=== PATIENT | female | born 1985 | race Caucasian/White ===

== ENCOUNTER 2016-08-06 18:48 | Emergency (ER) | payer OTHER ==
[~2016-08-06] VITALS: Ht 180.3 cm; Wt 144.0 kg
[~2016-08-06 18:48] MED LIST: MISC1TAB74 PO; ONDA4TAB46 PO
[2016-08-06 18:53] VITALS: TEMP 36.9; Ht 180.3 cm; Wt 144.0 kg
[2016-08-06] MEDS ORDERED: MoRPHine SULFATE 4 MG/ML 1 ML CARP\\VIAL IM STA ×2 (19:00→19:45)
[2016-08-06] MEDS ORDERED: PROCHLORPERAZINE 5 MG/ML 2 ML VIAL IM STA (19:00)
[2016-08-06] MEDS ORDERED: DiphenhydrAMINE HCL 50 MG/ML VIAL IM STA (19:00)
[2016-08-06 19:50] VITALS: BP 149/92; PULSE 80; O2SAT 98
--- NOTE | 2016-08-06 20:19 | EMERGENCY ROOM VISIT NOTE ---
History First contact with patient: 18:55 Chief Complaint: HEADACHE Stated Complaint: MIGRAINE,NAUSEA,UNABLE TO HAVE BOWEL MOVEMENT History of Present Illness The patient is a 31 year old female who presents to the Emergency Room with complaints of a migraine headache for the past 2 days. The patient reports a history of chronic migraines. She is currently under the management of "Dr. Durant". The patient reports that her last 3 appointments since last summer has been canceled on her. She is taking about trying to find another neurologist. The patient reports symptoms consistent with all prior migraines. It is not the worse headache of her life. She describes it as a bilateral retro-orbital and temporal throbbing sensation. She reports photophobia as well. She has had nausea without vomiting. The patient denies any other recent illness except for a mild case of gastroenteritis just prior to . The patient denies any risk of carbon monoxide exposure. He denies any recent fall or head injury. She rates her headache a 10 out of 10. Review of Systems 10 system review was performed and was negative except for pertinent positives and negatives as indicated in history of present illness Past Medical/Surgical History Medical Problems: (1) Abdominal pain (2) Abnormal uterine bleeding (3) Abnormal uterine bleeding (4) Abnormal uterine bleeding (5) Abnormal vaginal bleeding (6) Attention deficit hyperactivity disorder (7) Back pain (8) Back pain (9) Back pain (10) Benign hypertension (11) Bipolar disorder (12) Body mass index 30+ - obesity (13) Cannabis abuse (14) Depression (15) Diabetes mellitus type 2 (16) Dysmenorrhea (17) Dysmenorrhea (18) dyspnea metabolic syndrome X (19) Gastroesophageal reflux disease (20) Headache (21) Hyperglycemia (22) Lower abdominal pain (23) Lower abdominal pain (24) Migraine (25) Migraine (26) Migraine (27) Pain, dental (28) PCOS (polycystic ovarian syndrome) (29) Polycystic ovaries (30) Posttraumatic stress disorder (31) Suicide by self-administered drug (32) Upper respiratory infection (33) Urinary tract infection (34) UTI (lower urinary tract infection) (35) UTI (lower urinary tract infection) Family History Diabetes mellitus FH: cancer FH: heart disease FH: lung disease FHx: gallbladder disease Hypertension Kidney disease Kidney stones Social History Smoking Status: Current Every Day Smoker Alcohol Use: none Drug Use: none Marital Status: single Housing Status: lives with family Occupation Status: employed Current/Historical Medications Scheduled Bupropion Hcl (Bupropion Hcl Er), 150 MG PO DAILY Metformin Hcl (Glucophage), 500 MG PO BIDM Methylphenidate (Ritalin), 10 MG PO BID Misc Natural Products (Green Tea), 2 TABS PO BID Multiple Vitamins W/ Minerals (Biotin Plus/Calcium/Vit D), 1 TAB PO TID Topiramate (Topamax), 100 MG PO HS Topiramate (Topamax ), 25 MG PO QAM Scheduled PRN Lorazepam (Ativan), 1 MG PO DAILY PRN for Anxiety/Agitation Omeprazole (Prilosec), 20 MG PO TID PRN for Acid Reflux Ondansetron Hcl (Zofran), 4 MG PO TID PRN for Nausea Ondasetron Odt (Zofran Odt), 4 MG SL Q6H PRN for Nausea Allergies Coded Allergies: Kiwi (Verified Allergy, Intermediate, TONGUE SWELLS, 07/24/16) Adhesives (Verified Allergy, Unknown, BLISTERS, 07/24/16) Macias Pepper (Verified Allergy, Unknown, IRRITATES THROAT, 07/24/16) GREEN PEPPERS Sumatriptan (Verified Allergy, Unknown, neck pain, 07/24/16) Ibuprofen (Verified Adverse Reaction, Severe, GI BLEED, 07/24/16) Physical Exam Vital Signs Date Time Temp Pulse Resp B/P Pulse Ox O2 Delivery O2 Flow Rate FiO2 08/06/16 19:50 80 16 149/92 98 Room Air 08/06/16 18:53 36.9 118 18 147/85 92 Room Air Physical Exam CONSTITUTIONAL: Morbidly obese, alert and oriented X 3 with positive affect. HEENT: Normocephalic, atraumatic. Pupils equal, round and reactive. Patient is photophobic, precluding funduscopic exam. NECK: Full active range of motion without discomfort. No nuchal rigidity. RESPIRATORY: Clear to auscultation bilaterally with no wheezing, crackles, rhonchi or stridor. CARDIOVASCULAR: Regular rate and rhythm with no murmurs, rubs or gallops. GASTROINTESTINAL: Bowel sounds present in all quadrants. MUSCULOSKELETAL: Full range of motion of all joints without discomfort. INTEGUMENTARY: No rash or other significant dermatologic conditions noted. NEUROLOGIC: No focal neurologic deficits noted. Normal finger to nose test. Negative pronator drift. No ataxia with ambulation to her exam room. Medical Decision & Procedures Medications Administered Medications (Trade) Dose Ordered Sig/Angela Route Start Time Stop Time Status Last Admin Dose Admin Morphine Sulfate (MoRPHine SULFATE INJ) 4 mg ONE STAT IM 08/06/16 19:00 08/06/16 19:02 DC 08/06/16 19:14 4 MG Prochlorperazine Edisylate (Compazine Inj) 10 mg ONE STAT IM 08/06/16 19:00 08/06/16 19:02 DC 08/06/16 19:14 10 MG Diphenhydramine HCl (Benadryl Inj) 50 mg ONE STAT IM 08/06/16 19:00 08/06/16 19:02 DC 08/06/16 19:14 50 MG Morphine Sulfate (MoRPHine SULFATE INJ) 4 mg NOW STAT IM 08/06/16 19:45 08/06/16 19:46 DC 08/06/16 19:48 4 MG ED Course Patient history and physical exam were performed. Nurse's notes were reviewed. Vital signs were reviewed. Prior medical records were also reviewed, showing a history of frequent visits to the emergency department for migraines and other pain related issues. She is currently on a 2 shot per month narcotic prescription, with history concerning for drug-seeking behavior. According to her previous treatment, the patient received morphine 4 mg, Compazine 10 mg and Benadryl 50 mg IM. The patient reported that this did not provide any relief. She was administered an additional morphine 4 mg IM, reducing her pain to a 5 out of 10 at the time of discharge. The patient was encouraged to rest and remain well-hydrated. Follow-up with her PCP or neurologist as needed for further management. She may certainly return to the [facility] department for any significantly worsening headache, developing fever or other concerning symptoms. The patient was happy with plan of care, and voiced understanding of all discharge instructions. Medical Decision Patient presents to the emergency department with complaint of a migraine headache. She does have a history of chronic migraines, and reports that this headache is similar to all prior. It is not the worse headache of her life. At this point, I do not feel that further laboratory or imaging studies are warranted. I do not suspect meningitis, intracranial bleed, abscess, TIA/CVA, thromboembolic event or carbon monoxide poisoning. Impression Primary Impression: Migraine Departure Information Referrals Leon Ross D.O. (PCP) Patient Instructions A Signature Page, [facility]
[2016-09-17] MEDS ORDERED: TOPI100T20 PO (07:55)
[2016-09-17] MEDS ORDERED: ATV/1 PO (12:23)
[2016-09-17] MEDS ORDERED: PRLSR20 PO (16:09)
[2016-09-17] MEDS ORDERED: METH10TA4 PO (17:03)
== END 2016-08-06 19:52 | disposition home or self-care (01) ==
LOC: C.EDB 18:50 → C.EDD 19:52
DX: G43.909 Migraine, unspecified, not intractable, without status migrainosus (principal); I10 Essential (primary) hypertension; E11.9 Type 2 diabetes mellitus without complications; E28.2 Polycystic ovarian syndrome; F32.9 Major depressive disorder, single episode, unspecified; F90.9 Attention-deficit hyperactivity disorder, unspecified type; Z91.5 Personal history of self-harm; Z79.84 Long term (current) use of oral hypoglycemic drugs; Z79.899 Other long term (current) drug therapy

== ENCOUNTER 2016-08-22 22:44 | Emergency (ER) | payer OTHER ==
[~2016-08-22] VITALS: Ht 180.3 cm; Wt 144.7 kg
[2016-08-22 22:49] VITALS: TEMP 36.8; Ht 180.3 cm; Wt 144.7 kg
[2016-08-22] MEDS ORDERED: PROMETHAZINE HCL INJ 25 MG in SODIUM CHLORIDE 0.9% 50ML 50 ML IV STA (23:09)
[2016-08-22] MEDS ORDERED: SODIUM CHLORIDE 0.9% 1000ML 1,000 ML IV STA (23:09)
[2016-08-22] MEDS ORDERED: MoRPHine SULFATE 4 MG/ML 1 ML CARP\\VIAL IV STA (23:09)
[2016-08-22 23:34] LABS: BASO % 0.2 %; BASO ABS # 0.02 K/uL (0-0.2); COMPLETE YES; EOS % 1.5 %; HEMATOCRIT 40.7 % (37-47); IG% 0.2 %; LYMPH % 38.1 %; LYMPH ABS # 3.26 K/uL (1.2-3.4); MEAN CELL VOLUME 89.1 fL (80-100); MEAN CORPUSCULAR HEMOGLOBIN 31.5 pg (25-34); MEAN CORPUSCULAR HGB CONC 35.4 g/dl (32-36); MEAN PLATELET VOLUME 9.7 fL (7.4-10.4); MONO % 6.3 %; NEUT % 53.7 %; PLATELET COUNT 284 K/uL (130-400); RED BLOOD COUNT 4.57 M/uL (4.2-5.4); WHITE BLOOD COUNT 8.55 K/uL (4.8-10.8)
[2016-08-22 23:54] LABS: URINE APPEARANCE CLEAR (CLEAR); URINE BILIRUBIN NEG (NEG); URINE COLOR YELLOW; URINE NITRITE NEG (NEG); URINE PH 6.5 (4.5-7.5); URINE SPECIFIC GRAVITY 1.021 (1.000-1.030); UROBILINOGEN NEG (NEG); ZZUR CULT IF INDIC CLEAN CATCH NO
[2016-08-22 23:56] LABS: MANUAL MICROSCOPIC REQUIRED? NO; REVIEW REQ? NO
[2016-08-22 23:58] LABS: BUN/CREATININE RATIO 9.7 (10-20); CALCIUM 8.8 mg/dl (8.5-10.1); POTASSIUM 3.9 mmol/L (3.5-5.1)
[2016-08-22 23:59] LABS: PREG INTERNAL NEGATIVE QC NEG CLEAR BACKGROUND; PREG INTERNAL POSITIVE QC POS CONTROL LINE
[2016-08-23 01:25] VITALS: BP 108/44; PULSE 71; O2SAT 97
--- NOTE | 2016-08-23 03:18 | EMERGENCY ROOM VISIT NOTE ---
History First contact with patient: 23:01 Chief Complaint: PELVIC PAIN Stated Complaint: SEVERE ABDOMINAL PAIN, NAUSEA History of Present Illness The patient is a 31 year old female who presents to the Emergency Room with complaints of suprapubic pain with nausea for the past 2 days. Patient has PCOS and thinks symptoms are from this. Patient denies chest pain, dyspnea, fever, chills, vomiting, diarrhea, urinary symptoms, vaginal itching or malodor. She is not currently sexually active. Patient denies risk for STIs She is declining pelvic exam and STI testing. She describes pain as cramping, ranging in severity 7 out of 10 to the right lower suprapubic area. Nothing makes it better or worse. Review of Systems See HPI for pertinent positives & negatives. A total of 10 systems reviewed and were otherwise negative. Past Medical/Surgical History Medical Problems: (1) Abdominal pain (2) Abnormal uterine bleeding (3) Abnormal uterine bleeding (4) Abnormal uterine bleeding (5) Abnormal vaginal bleeding (6) Attention deficit hyperactivity disorder (7) Back pain (8) Back pain (9) Back pain (10) Benign hypertension (11) Bipolar disorder (12) Body mass index 30+ - obesity (13) Cannabis abuse (14) Depression (15) Diabetes mellitus type 2 (16) Dysmenorrhea (17) Dysmenorrhea (18) dyspnea metabolic syndrome X (19) Gastroesophageal reflux disease (20) Headache (21) Hyperglycemia (22) Lower abdominal pain (23) Lower abdominal pain (24) Migraine (25) Migraine (26) Migraine (27) Pain, dental (28) PCOS (polycystic ovarian syndrome) (29) Polycystic ovaries (30) Posttraumatic stress disorder (31) Suicide by self-administered drug (32) Upper respiratory infection (33) Urinary tract infection (34) UTI (lower urinary tract infection) (35) UTI (lower urinary tract infection) Family History Diabetes mellitus FH: cancer FH: heart disease FH: lung disease FHx: gallbladder disease Hypertension Kidney disease Kidney stones Social History Smoking Status: Current Every Day Smoker Alcohol Use: none Drug Use: none Marital Status: single Housing Status: lives with family Occupation Status: employed Current/Historical Medications Scheduled Bupropion Hcl (Bupropion Hcl Er), 150 MG PO DAILY Metformin Hcl (Glucophage), 500 MG PO BIDM Methylphenidate (Ritalin), 10 MG PO BID Misc Natural Products (Green Tea), 2 TABS PO BID Multiple Vitamins W/ Minerals (Biotin Plus/Calcium/Vit D), 1 TAB PO TID Topiramate (Topamax), 100 MG PO HS Topiramate (Topamax ), 25 MG PO QAM Scheduled PRN Lorazepam (Ativan), 1 MG PO DAILY PRN for Anxiety/Agitation Omeprazole (Prilosec), 20 MG PO TID PRN for Acid Reflux Ondasetron Odt (Zofran Odt), 4 MG SL Q6H PRN for Nausea Allergies Coded Allergies: Kiwi (Verified Allergy, Intermediate, TONGUE SWELLS, 08/22/16) Adhesives (Verified Allergy, Unknown, BLISTERS, 08/22/16) Macias Pepper (Verified Allergy, Unknown, IRRITATES THROAT, 08/22/16) GREEN PEPPERS Sumatriptan (Verified Allergy, Unknown, neck pain, 08/22/16) Ibuprofen (Verified Adverse Reaction, Severe, GI BLEED, 08/22/16) Physical Exam Vital Signs Date Time Temp Pulse Resp B/P Pulse Ox O2 Delivery O2 Flow Rate FiO2 08/23/16 01:25 71 16 108/44 97 Room Air 08/23/16 00:29 70 16 124/66 98 Room Air 08/22/16 22:49 36.8 99 18 151/91 97 Room Air Physical Exam VITALS: Vitals are noted on the nurse's note and reviewed by myself. Vital signs stable. GENERAL: Pleasant female, in no acute distress, nondiaphoretic, well-developed well-nourished. SKIN: The skin was without rashes, erythema, edema, or bruising. There is no tenting of the skin. Capillary reflex less than 2 seconds. HEAD: Normocephalic atraumatic. EARS: External auditory canals clear, tympanic membranes pearly bashir without erythema or effusion bilaterally. EYES: Pupils equal round and reactive to light and accommodation. Conjunctivae without injection, sclerae without icterus. Extraocular movements intact. NOSE: Patent, turbinates without inflammation or discharge. MOUTH: Mucous membranes moist. Pharynx without erythema or exudate. Uvula midline. Airway patent. Tongue does not deviate. NECK: Supple without nuchal rigidity. No lymphadenopathy. No thyromegaly. Cervical spine is nontender. No JVD. HEART: Regular rate and rhythm without murmurs gallops or rubs. LUNGS: Clear to auscultation bilaterally without wheezes, rales or rhonchi. No dullness to percussion. No retractions or accessory muscle use. ABDOMEN: Positive bowel sounds x 4. Normal tympanic percussion. Soft, protuberant, obese, tender to palpation right lower suprapubic area, no CVA tenderness, without masses or organomegaly. Posey sign negative. No guarding or rebound tenderness. MUSCULOSKELETAL: No muscle atrophy, erythema, noted. NEURO: Patient was alert and oriented to person place and time. Normal sensation to light and sharp touch. No focal neurological deficits. Medical Decision & Procedures Laboratory Results 08/22/16 23:20 Red Blood Count 4.57, Mean Corpuscular Volume 89.1, Mean Corpuscular Hemoglobin 31.5, Mean Corpuscular Hemoglobin Concent 35.4, Mean Platelet Volume 9.7, Neutrophils (%) (Auto) 53.7, Lymphocytes (%) (Auto) 38.1, Monocytes (%) (Auto) 6.3, Eosinophils (%) (Auto) 1.5, Basophils (%) (Auto) 0.2, Neutrophils # (Auto) 4.58, Lymphocytes # (Auto) 3.26, Monocytes # (Auto) 0.54, Eosinophils # (Auto) 0.13, Basophils # (Auto) 0.02 08/22/16 23:20 Test 08/22/16 23:20 08/22/16 23:27 White Blood Count 8.55 K/uL (4.8-10.8) Red Blood Count 4.57 M/uL (4.2-5.4) Hemoglobin 14.4 g/dL (12.0-16.0) Hematocrit 40.7 % (37-47) Mean Corpuscular Volume 89.1 fL (80-100) Mean Corpuscular Hemoglobin 31.5 pg (25-34) Mean Corpuscular Hemoglobin Concent 35.4 g/dl (32-36) Platelet Count 284 K/uL (130-400) Mean Platelet Volume 9.7 fL (7.4-10.4) Neutrophils (%) (Auto) 53.7 % Lymphocytes (%) (Auto) 38.1 % Monocytes (%) (Auto) 6.3 % Eosinophils (%) (Auto) 1.5 % Basophils (%) (Auto) 0.2 % Neutrophils # (Auto) 4.58 K/uL (1.4-6.5) Lymphocytes # (Auto) 3.26 K/uL (1.2-3.4) Monocytes # (Auto) 0.54 K/uL (0.11-0.59) Eosinophils # (Auto) 0.13 K/uL (0-0.5) Basophils # (Auto) 0.02 K/uL (0-0.2) RDW Standard Deviation 41.1 fL (36.4-46.3) RDW Coefficient of Variation 12.7 % (11.5-14.5) Immature Granulocyte % (Auto) 0.2 % Immature Granulocyte # (Auto) 0.02 K/uL (0.00-0.02) Anion Gap 7.0 mmol/L (3-11) Est Creatinine Clear Calc Drug Dose 131.5 ml/min Estimated GFR () 88.2 Estimated GFR (Non- 76.1 BUN/Creatinine Ratio 9.7 (10-20) Calcium Level 8.8 mg/dl (8.5-10.1) Human Chorionic Gonadotropin, Qual NEG (NEG) Urine Color YELLOW Urine Appearance CLEAR (CLEAR) Urine pH 6.5 (4.5-7.5) Urine Specific Lytle 1.021 (1.000-1.030) Urine Protein NEG (NEG) Urine Glucose (UA) NEG (NEG) Urine Ketones NEG (NEG) Urine Occult Blood NEG (NEG) Urine Nitrite NEG (NEG) Urine Bilirubin NEG (NEG) Urine Urobilinogen NEG (NEG) Urine Leukocyte Esterase NEG (NEG) Medications Administered Medications (Trade) Dose Ordered Sig/Angela Route Start Time Stop Time Status Last Admin Dose Admin Morphine Sulfate 4 mg 4 mg NOW STAT IV 08/22/16 23:09 08/22/16 23:11 DC 08/22/16 23:27 4 MG Promethazine HCl 25 mg/Sodium Chloride 51 ml @ 204 mls/hr NOW STAT IV 08/22/16 23:09 08/22/16 23:23 DC 08/22/16 23:26 204 MLS/HR Sodium Chloride (Nss 1000ml) 1,000 ml @ 999 mls/hr Q1H1M STAT IV 08/22/16 23:09 08/23/16 00:09 DC 08/22/16 23:27 999 MLS/HR ED Course Prior records/ancillary studies reviewed. Triage Nursing notes reviewed. Additional history obtained from sister. The patient's history was concerning for abdominal pain. Differential diagnosis: Etiologies such as appendicitis, PID, ovarian cyst, torsion, , diverticulitis, PUD, biliary pathology, UTI, pancreatitis, obstruction, mesenteric ischemia, aortic pathology, infections, inflammatory bowel disease, renal colic, as well as others were entertained. Physical examination findings: As above. ER treatment provided: Morphine, Phenergan, IV fluids On reassessment the patient felt better. Diagnostics interpreted by me: The labs revealed no worrisome leukocytosis or electrolyte abnormality. Negative urine and hCG Imaging studies: US PELVIC/ENDOVAG: Bilateral ovarian flow is present. No adnexal mass or cyst. Intrauterine device is in place. Uterus and endometrium are normal for age. No free fluid identified. Radiologist: David Campbell MD Exam and history seem consistent with pelvic pain. Patient felt much better and requested to leave. Patient does not have acute abdomen on exam. She is well-appearing. She refused pelvic exam and testing. She understands risks involved that we could be missing an infectious process. She was advised to follow-up with her QUOTATION CHECKER in a few days or here in the ER sooner for pain, fevers, vomiting, worsening signs or symptoms or as needed. By the evaluation outlined above emergent etiologies such as appendicitis, diverticulitis, PUD, biliary pathology, UTI, pancreatitis, obstruction, mesenteric ischemia, aortic pathology, infections, inflammatory bowel disease, renal colic, as well as others were deemed relatively unlikely. The pt informed about the findings as listed above. All questions were answered and pleased with the treatment. Return instructions were outlined and the patient was discharged in stable condition. Referral: The patient was referred back to their primary care physician/bowling ball patcher for follow- up in 2 to 3 days for a recheck of the current condition. Case reviewed with my attending Medical Decision As above Impression Primary Impression: Pelvic pain in female Departure Information Referrals Leon Ross D.O. (PCP) Patient Instructions My [facility]
--- NOTE | 2016-08-23 06:44 | DIAGNOSTIC IMAGING REPORT ---
EXAMINATION: PELVIC ULTRASOUND (transabdominal and endovaginal scanning) CLINICAL HISTORY: RLQ pain COMPARISON STUDY: 06/15/2016 FINDINGS: The uterus measured 7.1 x 3.8 x 5 cm. The endometrial stripe measured 7 mm. An IUD was visualized.. The right ovary measured 49 x 38 x 27 mm. The left ovary measured 47 x 30 x 35 mm. There is no ultrasonographic evidence of ovarian torsion. It should be noted that ovarian torsion can be present with normal Doppler ultrasonographic findings. There was no evidence of pathologic free pelvic fluid. IMPRESSION: Normal pelvic ultrasound Electronically signed by: Krishna Hayden M.D. 08/23/2016 6:42 AM Dictated Date/Time: 08/23/2016 6:41 AM
[2016-09-17] MEDS ORDERED: TOPI100T20 PO (07:55)
[2016-09-17] MEDS ORDERED: ATV/1 PO (12:23)
[2016-09-17] MEDS ORDERED: PRLSR20 PO (16:09)
[2016-09-17] MEDS ORDERED: METH10TA4 PO (17:03)
== END 2016-08-23 01:25 | disposition home or self-care (01) ==
LOC: C.EDB 22:45
DX: R10.2 Pelvic and perineal pain (principal); F90.9 Attention-deficit hyperactivity disorder, unspecified type; I10 Essential (primary) hypertension; F31.9 Bipolar disorder, unspecified; F32.9 Major depressive disorder, single episode, unspecified; E11.9 Type 2 diabetes mellitus without complications; K21.9 Gastro-esophageal reflux disease without esophagitis; E28.2 Polycystic ovarian syndrome; G43.909 Migraine, unspecified, not intractable, without status migrainosus; Z83.3 Family history of diabetes mellitus; F17.210 Nicotine dependence, cigarettes, uncomplicated; Z79.899 Other long term (current) drug therapy

== ENCOUNTER 2016-09-06 18:48 | Emergency (ER) | payer OTHER ==
[~2016-09-06] VITALS: Ht 180.3 cm; Wt 146.1 kg
[~2016-09-06 18:48] MED LIST changes: -ONDA4TAB46 PO
[2016-09-06 18:51] VITALS: TEMP 36.9; Ht 180.3 cm; Wt 146.1 kg
--- NOTE | 2016-09-06 20:01 | DIAGNOSTIC IMAGING REPORT ---
LEFT FOOT 3 VIEWS HISTORY: Left foot pain COMPARISON: None. FINDINGS: There is no fracture or dislocation. Soft tissues are unremarkable. No radiopaque foreign bodies. Small posterior calcaneal spur. IMPRESSION: No fractures. Electronically signed by: Taurus Mckeon M.D. 09/06/2016 7:59 PM Dictated Date/Time: 09/06/2016 7:57 PM
--- NOTE | 2016-09-06 20:24 | EMERGENCY ROOM VISIT NOTE ---
History First contact with patient: 19:06 Chief Complaint: FOOT PAIN Stated Complaint: SEVERE PAIN, LEFT FOOT History of Present Illness The patient is a 31 year old female who presents to the Emergency Room via private vehicle with complaints of "severe pain, left foot". The patient states that she developed left foot pain a few days ago that is progressively worsening and points to the region just below the left lateral malleolus extending into the midfoot as a location of the pain that she rates an 8/10. She states that she is unable to bear weight on this region without pain. She denies any fevers, chills, chest pain, shortness of breath, history of blood clots. Review of Systems A complete 6-point Review of Systems was discussed with the patient, with pertinent positives and negatives listed in the History of Present Illness. All remaining Review of Systems questions can be considered negative unless otherwise specified. Past Medical/Surgical History Medical Problems: (1) Abdominal pain (2) Abnormal uterine bleeding (3) Abnormal uterine bleeding (4) Abnormal uterine bleeding (5) Abnormal vaginal bleeding (6) Attention deficit hyperactivity disorder (7) Back pain (8) Back pain (9) Back pain (10) Benign hypertension (11) Bipolar disorder (12) Body mass index 30+ - obesity (13) Cannabis abuse (14) Depression (15) Diabetes mellitus type 2 (16) Dysmenorrhea (17) Dysmenorrhea (18) dyspnea metabolic syndrome X (19) Gastroesophageal reflux disease (20) Headache (21) Hyperglycemia (22) Lower abdominal pain (23) Lower abdominal pain (24) Migraine (25) Migraine (26) Migraine (27) Pain, dental (28) PCOS (polycystic ovarian syndrome) (29) Polycystic ovaries (30) Posttraumatic stress disorder (31) Suicide by self-administered drug (32) Upper respiratory infection (33) Urinary tract infection (34) UTI (lower urinary tract infection) (35) UTI (lower urinary tract infection) Family History Diabetes mellitus FH: cancer FH: heart disease FH: lung disease FHx: gallbladder disease Hypertension Kidney disease Kidney stones Social History Smoking Status: Current Every Day Smoker Alcohol Use: none Drug Use: none Marital Status: single Housing Status: lives with family Occupation Status: employed Current/Historical Medications Scheduled Bupropion Hcl (Bupropion Hcl Er), 150 MG PO DAILY Metformin Hcl (Glucophage), 500 MG PO BIDM Methylphenidate (Ritalin), 10 MG PO BID Multiple Vitamins W/ Minerals (Biotin Plus/Calcium/Vit D), 1 TAB PO TID Topiramate (Topamax), 100 MG PO HS Topiramate (Topamax ), 25 MG PO QAM Scheduled PRN Lorazepam (Ativan), 1 MG PO DAILY PRN for Anxiety/Agitation Omeprazole (Prilosec), 20 MG PO TID PRN for Acid Reflux Ondasetron Odt (Zofran Odt), 4 MG SL Q6H PRN for Nausea Allergies Coded Allergies: Kiwi (Verified Allergy, Intermediate, TONGUE SWELLS, 09/06/16) Adhesives (Verified Allergy, Unknown, BLISTERS, 09/06/16) Macias Pepper (Verified Allergy, Unknown, IRRITATES THROAT, 09/06/16) GREEN PEPPERS Sumatriptan (Verified Allergy, Unknown, neck pain, 09/06/16) Ibuprofen (Verified Adverse Reaction, Severe, GI BLEED, 09/06/16) Physical Exam Vital Signs Date Time Temp Pulse Resp B/P Pulse Ox O2 Delivery O2 Flow Rate FiO2 09/06/16 20:28 83 18 140/84 95 09/06/16 19:38 88 16 150/91 96 09/06/16 18:51 36.9 106 17 192/135 93 Room Air Physical Exam VITAL SIGNS - Vital signs and nursing notes were reviewed. Patient is afebrile , she was hypertensive upon her and treatment emergency department, she was also tachycardic and saturating on room air 93%. Vital signs were promptly redone to check validity of previous and there was a decrease in her blood pressure to a more acceptable level and her oxygen saturation had gone up well. GENERAL -31-year-old female appearing her stated age who is in no acute distress. Communicates well with provider and answers questions appropriately. SKIN - Without rashes. The left foot does have slight edema without erythema or evidence of cellulitic infection. HEAD - NC/AT. LUNGS - Chest wall symmetric without accessory muscle use, intercostals retractions, or central cyanosis. Normal vesicular breath sounds CTA B/L. No wheezes, rales, or rhonchi appreciated. CARDIAC - RRR with S1/S2. No murmur, rubs, or gallops appreciated. EXTREMITIES - No clubbing or peripheral cyanosis. No pretibial edema present. Patient vascular intact in the left lower extremity. +5/5 strength noted in UE/ LE bilaterally. There is tenderness with range of motion of the left foot. There is tenderness palpation overlying the region just inferior to the lateral malleolus extending into the superior metatarsal region. No neurologic or vascular deficit. No bony step-off. No bony abnormality. There pain was reproducible with palpation in the left foot. Medical Decision & Procedures ER Provider Diagnostic Interpretation: LEFT FOOT 3 VIEWS HISTORY: Left foot pain COMPARISON: None. FINDINGS: There is no fracture or dislocation. Soft tissues are unremarkable. No radiopaque foreign bodies. Small posterior calcaneal spur. IMPRESSION: No fractures. Electronically signed by: Taurus Mckeon M.D. 09/06/2016 7:59 PM Dictated Date/Time: 09/06/2016 7:57 PM Medical Decision Patient was seen and evaluated as above. After obtaining a thorough history and physical examination radiographs were obtained and a left foot. Results as above. I agree with radiologist findings. Patient was revitalized due to her hypertensive nature coming into the emergency department and once revitalized they returned to a more acceptable level. She clinically looked well. In the absence of any fracture she was offered crutches and a postop shoe noted that she works at [employer] and she said they do not allow her to have crutches. She was then fitted with a fracture boot. She was instructed to try and keep weight off of this to allow to heal. She was given the number for orthopedic surgeon and instructed to call them first thing tomorrow morning for follow-up. She was educated upon worrisome symptoms which to return as well as management of her condition. She had questions answered prior to discharge, seemed happy with plan of care and was discharged home in good condition. In the evaluation and treatment of this patient, the following differential diagnoses were considered: Lisfranc Fracture, Talus Fracture, Tarsal Fracture, Foot Sprain. Impression Primary Impression: Foot pain Departure Information Dispostion Home / Self-Care Condition GOOD Referrals No Doctor, Assigned (PCP) Simon Merlos, DO Patient Instructions My [facility] Additional Instructions You have been treated in the Emergency Department for left ankle pain. For pain control, you can use the following [id number] medicines (if >12 yo): - Regular strength (325mg/tab) Tylenol (acetaminophen) 2 tabs every 4-6 hours as needed. Do not exceed 12 tablets in a 24 hour period. Avoid taking more than 4 grams (4000 mg) of Tylenol per day. This includes any other sources of acetaminophen you may take on a regular basis. If this is a recent injury (<24 hrs), ice can be applied to the area of pain for the first 3 days to help decrease pain and inflammation. You have been provided the number for an Orthopaedic Surgeon. You should call this number as soon as possible to establish a follow-up visit from today's Emergency Department visit. Keep the ankle brace/splint in place until cleared by Orthopedics. Please try to keep ALL weight off of the ankle until weight bearing is tolerable. Return to the Emergency Department if your current symptoms worsen despite treatment course outlined above, or if you develop any of the following symptoms : intractable pain despite aforementioned treatment course or new onset of numbness or tingling of the foot. Please return to the emergency department with any new/concerning symptoms. Problem Qualifiers Primary Impression: Foot pain Laterality: left Qualified Codes: M79.672 - Pain in left foot
[2016-09-06 20:28] VITALS: BP 140/84; PULSE 83; O2SAT 95
[2016-09-17] MEDS ORDERED: TOPI100T20 PO (07:55)
[2016-09-17] MEDS ORDERED: ATV/1 PO (12:23)
[2016-09-17] MEDS ORDERED: PRLSR20 PO (16:09)
[2016-09-17] MEDS ORDERED: METH10TA4 PO (17:03)
== END 2016-09-06 20:29 | disposition home or self-care (01) ==
LOC: C.EDB 18:51 → C.EDD 20:29
DX: M79.672 Pain in left foot (principal); F90.0 Attention-deficit hyperactivity disorder, predominantly inattentive type; I10 Essential (primary) hypertension; F31.9 Bipolar disorder, unspecified; E66.9 Obesity, unspecified; E11.9 Type 2 diabetes mellitus without complications; K21.9 Gastro-esophageal reflux disease without esophagitis; E28.2 Polycystic ovarian syndrome; F17.200 Nicotine dependence, unspecified, uncomplicated; Z82.49 Family history of ischemic heart disease and other diseases of the circulatory system; Z84.1 Family history of disorders of kidney and ureter

== ENCOUNTER 2016-09-17 17:57 | Emergency (ER) | payer OTHER ==
[~2016-09-17] VITALS: Ht 180.3 cm; Wt 148.1 kg
[~2016-09-17 17:57] MED LIST changes: +ATV/1 PO; +METH10TA4 PO; -MISC1TAB74 PO; +PRLSR20 PO; +TOPI100T20 PO
[2016-09-17 18:06] VITALS: TEMP 36.7; Ht 180.3 cm; Wt 148.1 kg
[2016-09-17] MEDS ORDERED: DiphenhydrAMINE HCL 50 MG/ML VIAL IM STA (18:32)
[2016-09-17] MEDS ORDERED: MoRPHine SULFATE 10 MG/ML CARP/VIAL IM STA (18:32)
[2016-09-17] MEDS ORDERED: PROCHLORPERAZINE 5 MG/ML 2 ML VIAL IM STA (18:32)
--- NOTE | 2016-09-17 18:39 | EMERGENCY ROOM VISIT NOTE ---
History Report prepared by Apurva: Bekah Smith Under the Supervision of: Dr. Amarjit Guaman M.D. First contact with patient: 18:13 Chief Complaint: FLU LIKE SX Stated Complaint: DIZZY,CHEST PAIN,CNAT BREATHE History of Present Illness The patient is a 31 year old female who presents to the Emergency Room with complaints of persistent flu-like symptoms that began 2 days ago. The patient complains of a fever which has resolved as well as a headache, mild sore throat , chest pain, congestion, a productive cough, and diarrhea. Her headache is a 9/ 10 in severity and feels like it is located in the area of her sinuses. She has not hit her head. She has a history of migraines and feels like she is having a migraine triggered by the rest of her symptoms. The patient has a history of bronchitis and mild asthma. Denies vomiting or other complaints. She had her flu shot this year. She does not have an inhaler. Source of History: patient Onset: 2 days ago Position: other (global) Quality: other (flu-like symptoms) Timing: other (persistent) Associated Symptoms: + chest pain, + cough (productive), + diarrhea, + headache, + sorethroat Note: Other symptoms: congestion Review of Systems See HPI for pertinent positives & negatives. A total of 10 systems reviewed and were otherwise negative. Past Medical & Surgical Medical Problems: (1) Abdominal pain (2) Abnormal uterine bleeding (3) Abnormal uterine bleeding (4) Abnormal uterine bleeding (5) Abnormal vaginal bleeding (6) Attention deficit hyperactivity disorder (7) Back pain (8) Back pain (9) Back pain (10) Benign hypertension (11) Bipolar disorder (12) Body mass index 30+ - obesity (13) Cannabis abuse (14) Depression (15) Diabetes mellitus type 2 (16) Dysmenorrhea (17) Dysmenorrhea (18) dyspnea metabolic syndrome X (19) Gastroesophageal reflux disease (20) Headache (21) Hyperglycemia (22) Lower abdominal pain (23) Lower abdominal pain (24) Migraine (25) Migraine (26) Migraine (27) Pain, dental (28) PCOS (polycystic ovarian syndrome) (29) Polycystic ovaries (30) Posttraumatic stress disorder (31) Suicide by self-administered drug (32) Upper respiratory infection (33) Urinary tract infection (34) UTI (lower urinary tract infection) (35) UTI (lower urinary tract infection) Family History Diabetes mellitus FH: cancer FH: heart disease FH: lung disease FHx: gallbladder disease Hypertension Kidney disease Kidney stones Social History Smoking Status: Current Every Day Smoker Alcohol Use: none Drug Use: none Marital Status: single Housing Status: lives with family Occupation Status: employed Current/Historical Medications Scheduled Albuterol Hfa (Ventolin Hfa), 3 PUFFS INH Q6H Bupropion Hcl (Bupropion Hcl Er), 150 MG PO DAILY Metformin Hcl (Glucophage), 500 MG PO BIDM Methylphenidate (Ritalin), 10 MG PO BID Multiple Vitamins W/ Minerals (Biotin Plus/Calcium/Vit D), 1 TAB PO TID Pseudoephedrine (Sudafed), 60 MG PO Q6 Topiramate (Topamax), 100 MG PO HS Topiramate (Topamax ), 25 MG PO QAM Scheduled PRN Lorazepam (Ativan), 1 MG PO DAILY PRN for Anxiety/Agitation Omeprazole (Prilosec), 20 MG PO TID PRN for Acid Reflux Ondasetron Odt (Zofran Odt), 4 MG SL Q6H PRN for Nausea Allergies Coded Allergies: Kiwi (Verified Allergy, Intermediate, TONGUE SWELLS, 09/17/16) Adhesives (Verified Allergy, Unknown, BLISTERS, 09/17/16) Macias Pepper (Verified Allergy, Unknown, IRRITATES THROAT, 09/17/16) GREEN PEPPERS Sumatriptan (Verified Allergy, Unknown, neck pain, 09/17/16) Ibuprofen (Verified Adverse Reaction, Severe, GI BLEED, 09/17/16) Physical Exam Vital Signs Date Time Temp Pulse Resp B/P Pulse Ox O2 Delivery O2 Flow Rate FiO2 09/17/16 20:05 74 177/86 98 09/17/16 18:06 36.7 104 18 129/79 98 Room Air Physical Exam GENERAL: Patient is in no acute distress. HEENT: No acute trauma, normocephalic atraumatic, mucous membranes moist, moderate nasal congestion, no scleral icterus, no throat erythema or exudate. NECK: No stridor, no adenopathy, no meningismus, trachea is midline. LUNGS: Decreased breath sounds, scattered wheezes, no rhonchi, breath sounds equal, moist cough noted, no respiratory distress. HEART: Without murmurs gallops or rubs, regular rate and rhythm. ABDOMEN: Soft, nontender, bowel sounds positive, no hernias, no peritonitis. EXTREMITIES: No cyanosis or edema, full range of motion of all the joints without pain or difficulty, no signs for acute trauma. NEUROLOGIC: Oriented x 3, no acute motor or sensory deficits, no focal weakness. SKIN: No rash, no jaundice, no diaphoresis. Medical Decision & Procedures ER Provider Diagnostic Interpretation: Radiology results and stated below per my review and radiologist interpretation: SINGLE VIEW CHEST CLINICAL HISTORY: Cough and chest congestion. FINDINGS: An AP, portable, upright chest radiograph is compared to study dated 07/30/2016. The examination is degraded by portable technique and large body habitus. The cardiomediastinal silhouette is unremarkable. The lungs and pleural spaces are clear. No pneumothorax is seen. The bony thorax is grossly intact. IMPRESSION: No active disease in the chest. Electronically signed by: Amarjit Jay M.D. 09/17/2016 7:24 PM Dictated Date/Time: 09/17/2016 7:23 PM Medications Administered Medications (Trade) Dose Ordered Sig/Angela Route Start Time Stop Time Status Last Admin Dose Admin Morphine Sulfate (MoRPHine SULFATE INJ) 6 mg NOW STAT IM 09/17/16 18:32 09/17/16 18:38 DC 09/17/16 19:09 6 MG Prochlorperazine Edisylate (Compazine Inj) 10 mg NOW STAT IM 09/17/16 18:32 09/17/16 18:38 DC 09/17/16 19:08 10 MG Diphenhydramine HCl (Benadryl Inj) 50 mg NOW STAT IM 09/17/16 18:32 09/17/16 18:38 DC 09/17/16 19:08 50 MG Albuterol (Ventolin Hfa Inhaler) 4 puffs NOW ONCE INH 09/17/16 18:45 09/17/16 18:46 DC 09/17/16 19:09 4 PUFFS Pseudoephedrine HCl (Sudafed Tab) 60 mg NOW STAT PO 09/17/16 19:41 09/17/16 19:42 DC 09/17/16 20:01 60 MG ED Course 1821: The patient was evaluated in room B4. A complete history and physical exam was performed. 1831: Ordered Benadryl Inj 50 mg IM, Compazine Inj 10 mg IM, Morphine Sulfate 6 mg IM. 1844: Ordered Albuterol 4 puffs INH. 1935: Reevaluated the patient. She was feeling better. Discussed results and discharge instructions: She verbalized understanding and agreement. The patient is ready for discharge. 1940: Ordered Sudafed Tab 60 mg PO. Medical Decision Differentials include influenza, flu like illness, pneumonia, bronchitis, migraine headache, tension headache, sinus headache, pharyngitis. The patient presents with cough, congestion and a headache that she describes as a migraine. She was afebrile, she had a normal neurologic evaluation. There was no meningismus. She had not suffered recent head trauma. The patient received IM morphine, IM Compazine, IM Benadryl, this was given for her headache, this is her typical regimen. She was given albuterol via MDI and oral Sudafed for the chest congestion and nasal congestion. A chest x-ray was done, there was no pneumonia, no CHF or pneumothorax. The patient has a URI with an acute bronchitis, antibiotics are not indicated. She is being discharged on albuterol, Sudafed, rest and hydration. If worsening , she can return. Impression Primary Impression: Acute bronchitis Additional Impression: Headache Scribe Attestation The scribe's documentation has been prepared under my direction and personally reviewed by me in its entirety. I confirm that the note above accurately reflects all work, treatment, procedures, and medical decision making performed by me. Departure Information Dispostion Home / Self-Care Prescriptions Albuterol Hfa (VENTOLIN HFA) 200 Puffs/04948 Mcg Aers 3 PUFFS INH Q6H, #1 INHALER Prov: Amarjit Guaman M.D. 09/17/16 Pseudoephedrine (Sudafed) 30 Mg Tab 60 MG PO Q6 for 10 Days, #80 TAB Prov: Amarjit Guaman M.D. 09/17/16 Referrals Leon Ross D.O. (PCP) Patient Instructions My [facility] Additional Instructions sudafed from behind the counter for congestion albuterol 3 puffs every 4 hours for cough rest fluids tylenol for pain and aches return if worsening or not improving Problem Qualifiers
[2016-09-17] MEDS ORDERED: ALBUTEROL HFA 8 GM INHALER INH ONE (18:45)
[2016-09-17] MEDS ORDERED: GLC/500 PO (19:09)
--- NOTE | 2016-09-17 19:25 | DIAGNOSTIC IMAGING REPORT ---
SINGLE VIEW CHEST CLINICAL HISTORY: Cough and chest congestion. FINDINGS: An AP, portable, upright chest radiograph is compared to study dated 07/30/2016. The examination is degraded by portable technique and large body habitus. The cardiomediastinal silhouette is unremarkable. The lungs and pleural spaces are clear. No pneumothorax is seen. The bony thorax is grossly intact. IMPRESSION: No active disease in the chest. Electronically signed by: Amarjit Jay M.D. 09/17/2016 7:24 PM Dictated Date/Time: 09/17/2016 7:23 PM
[2016-09-17] MEDS ORDERED: ONDA4TAB10 SL (19:38)
[2016-09-17] MEDS ORDERED: PSEUDOEPHEDRINE HCL 30 MG TAB PO STA (19:41)
[2016-09-17] MEDS ORDERED: PSEU30TA20 PO (19:44)
[2016-09-17] MEDS ORDERED: VNTHFA/IN INH (19:44)
[2016-09-17 20:05] VITALS: BP 177/86; PULSE 74; O2SAT 98
[2016-09-17] MEDS ORDERED: TOPI25TA99 PO (21:08)
[2016-09-17] MEDS ORDERED: BUPR-267 PO (21:42)
[2016-09-17] MEDS ORDERED: MULT-67 PO (22:20)
== END 2016-09-17 20:06 | disposition home or self-care (01) ==
LOC: C.EDB 17:58
DX: J20.9 Acute bronchitis, unspecified (principal); R51 Headache; F90.0 Attention-deficit hyperactivity disorder, predominantly inattentive type; I10 Essential (primary) hypertension; F31.9 Bipolar disorder, unspecified; F12.90 Cannabis use, unspecified, uncomplicated; E11.9 Type 2 diabetes mellitus without complications; K21.9 Gastro-esophageal reflux disease without esophagitis; E28.2 Polycystic ovarian syndrome; F43.10 Post-traumatic stress disorder, unspecified; F17.200 Nicotine dependence, unspecified, uncomplicated; Z83.3 Family history of diabetes mellitus; Z82.49 Family history of ischemic heart disease and other diseases of the circulatory system; Z84.1 Family history of disorders of kidney and ureter

== ENCOUNTER 2016-10-21 18:19 | Emergency (ER) | payer OTHER ==
[~2016-10-21] VITALS: Ht 180.3 cm; Wt 144.5 kg
[~2016-10-21 18:19] MED LIST changes: +BUPR-267 PO; +GLC/500 PO; +MULT-67 PO; +ONDA4TAB10 SL; +TOPI25TA99 PO; +VNTHFA/IN INH
[2016-10-21 18:22] VITALS: TEMP 36.9; Ht 180.3 cm; Wt 144.5 kg
[2016-10-21] MEDS ORDERED: PROCHLORPERAZINE 5 MG/ML 2 ML VIAL IM STA (19:41)
[2016-10-21] MEDS ORDERED: DiphenhydrAMINE HCL 50 MG/ML VIAL IM STA (19:41)
[2016-10-21] MEDS ORDERED: MoRPHine SULFATE 10 MG/ML CARP/VIAL IM STA (19:41)
[2016-10-21] MEDS ORDERED: ONDANSETRON 4MG OD TAB PO ONE (19:45)
--- NOTE | 2016-10-21 20:14 | EMERGENCY ROOM VISIT NOTE ---
ED Visit Note First contact with patient: 19:09 CHIEF COMPLAINT: Migraine headache since yesterday HISTORY OF PRESENT ILLNESS: Patient is a 31-year-old white female who presents emergency department for evaluation of a migraine headache that started last night. She reports a frontal and retro-orbital headache that she rates a 10/ 10. She reports associated nausea and vomiting 1. She tried Tylenol at home without relief. She states that this is typical of her usual migraine. She is under the care of [facility] in [place]. She reports that multiple appointments with the [facility] neurology in [place] had been canceled going back to April. She denies any changes in her medication regimen. The patient denies fever or chills recently, and there is no weakness or numbness of the extremities. There is no difficulty with speech or vision. No trauma to the head and no neck pain. The pain is severe, constant, and it is slowly increasing in severity. This is not the worst headache of the life and is similar to previous migraines. Previous imaging studies of the brain (CT scans ) have been normal. REVIEW OF SYSTEMS: Review of systems as per HPI. All other systems reviewed were negative. 10 systems reviewed. PMH: Electronic medical records are reviewed and summarized as above/below. See Problem List. SOCIAL HISTORY: Patient lives at home. Smoker. PHYSICAL EXAM: Vital Signs: Reviewed Nurse's notes. General Appearance: Obese 31-year-old white female who is awake and alert and laying in a darkened room in no acute distress. Eyes: Pupils equal round reactive to light extraocular muscles are intact, no proptosis, mild photophobia ENT: Oropharynx is clear, mucous membranes are moist, tympanic membranes are clear bilaterally, no sinus or dental tenderness Neck: Supple, no cervical lymphadenopathy, no meningismus Heart: Regular rate and rhythm, S1 and S2 Lungs: Clear to auscultation bilaterally, no wheezes Rales or rhonchi, no increased work of breathing Abdomen: Soft nontender nondistended. Normal active bowel sounds. No rebound. No guarding. Back: No midline tenderness to palpation. : No CVA tenderness to palpation. Skin: Warm, no diaphoresis, no rashes. Extremities: No cyanosis, clubbing, or edema Neurologic: Patient is awake alert, and oriented x 3. Cranial nerves 2-12 are grossly intact. Motor 5 out of 5 strength bilateral upper extremities and lower extremities. No gross sensory deficits. Reflexes are 2+ throughout. EMERGENCY DEPARTMENT COURSE: Patient is known to the emergency department for frequent visits for pain related complaints and is on a treatment plan restricting her to 2 narcotic injections per month regarding her pain related complaints. The patient was given Morphine 6 mg IM, Compazine 10 mg IM, Benadryl 25 mg IM and Zofran 4 mg ODT for the headache. She was observed, and reported that her headache had improved and she fell on her left go home to rest. Her sister is driving. She rated her discomfort a 7/10 at discharge. Differential includes: acute intracranial bleed, meningitis, encephalitis, mass or mass effect, sinusitis, infection, migraine, tumor, headache, temporal arteritis and carbon monoxide exposure. Problem List Medical Problems: (1) Abdominal pain Status: Resolved (2) Abnormal uterine bleeding Status: Resolved (3) Abnormal uterine bleeding Status: Resolved (4) Abnormal uterine bleeding Status: Resolved (5) Abnormal vaginal bleeding Status: Resolved (6) Attention deficit hyperactivity disorder Status: Chronic (7) Back pain Status: Resolved (8) Back pain Status: Resolved (9) Back pain Status: Resolved (10) Benign hypertension Status: Chronic (11) Bipolar disorder Status: Chronic (12) Body mass index 30+ - obesity Status: Chronic (13) Cannabis abuse Status: Chronic (14) Depression Status: Chronic (15) Diabetes mellitus type 2 Status: Chronic (16) Dysmenorrhea Status: Resolved (17) Dysmenorrhea Status: Resolved (18) dyspnea metabolic syndrome X Status: Chronic (19) Gastroesophageal reflux disease Status: Chronic (20) Headache Status: Resolved (21) Hyperglycemia Status: Resolved (22) Lower abdominal pain Status: Resolved (23) Lower abdominal pain Status: Resolved (24) Migraine Status: Resolved (25) Migraine Status: Resolved (26) Migraine Status: Chronic (27) Pain, dental Status: Resolved (28) PCOS (polycystic ovarian syndrome) Status: Chronic (29) Polycystic ovaries Status: Chronic (30) Posttraumatic stress disorder Status: Chronic (31) Suicide by self-administered drug Status: Resolved (32) Upper respiratory infection Status: Resolved (33) Urinary tract infection Status: Resolved (34) UTI (lower urinary tract infection) Status: Resolved (35) UTI (lower urinary tract infection) Status: Resolved Current/Historical Medications Scheduled Albuterol Hfa (Ventolin Hfa), 3 PUFFS INH Q6H Bupropion Hcl (Bupropion Hcl Er), 150 MG PO DAILY Metformin Hcl (Glucophage), 500 MG PO BIDM Methylphenidate (Ritalin), 10 MG PO BID Multiple Vitamins W/ Minerals (Biotin Plus/Calcium/Vit D), 1 TAB PO TID Topiramate (Topamax), 100 MG PO HS Topiramate (Topamax ), 25 MG PO QAM Scheduled PRN Lorazepam (Ativan), 1 MG PO DAILY PRN for Anxiety/Agitation Omeprazole (Prilosec), 20 MG PO TID PRN for Acid Reflux Ondasetron Odt (Zofran Odt), 4 MG SL Q6H PRN for Nausea Allergies Coded Allergies: Kiwi (Verified Allergy, Intermediate, TONGUE SWELLS, 09/17/16) Adhesives (Verified Allergy, Unknown, BLISTERS, 09/17/16) Macias Pepper (Verified Allergy, Unknown, IRRITATES THROAT, 09/17/16) GREEN PEPPERS Sumatriptan (Verified Allergy, Unknown, neck pain, 09/17/16) Ibuprofen (Verified Adverse Reaction, Severe, GI BLEED, 09/17/16) Vital Signs Date Time Temp Pulse Resp B/P Pulse Ox O2 Delivery O2 Flow Rate FiO2 10/21/16 20:32 81 20 123/65 99 10/21/16 18:22 36.9 97 18 164/90 98 Room Air Medications Administered Medications (Trade) Dose Ordered Sig/Angela Route Start Time Stop Time Status Last Admin Dose Admin Morphine Sulfate (MoRPHine SULFATE INJ) 6 mg NOW STAT IM 10/21/16 19:41 10/21/16 19:43 DC 10/21/16 20:08 6 MG Prochlorperazine Edisylate (Compazine Inj) 10 mg NOW STAT IM 10/21/16 19:41 10/21/16 19:43 DC 10/21/16 20:08 10 MG Diphenhydramine HCl (Benadryl Inj) 25 mg NOW STAT IM 10/21/16 19:41 10/21/16 19:43 DC 10/21/16 20:08 25 MG Ondansetron HCl (Zofran Odt) 4 mg ONE ONCE PO 10/21/16 19:45 10/21/16 19:46 DC 10/21/16 20:08 4 MG Departure Information Impression Primary Impression: Headache Referrals Leon Ross D.O. (PCP) Patient Instructions My [facility] Additional Instructions DO NOT drive, drink alcohol, operate machinery, or perform dangerous activities today. You were given medications in the ER that can affect your ability to safely function or operate a vehicle. Rest today in a quiet, peaceful, dark environment and get a full 8-10 hrs of sleep tonight. Avoid loud noises, smoke/smoking, alcohol, bright lights, stress, or physical exertion today to minimize the chance the headache may return. Continue current medications. Ibuprofen(Motrin, Advil) may be used for fever or pain. Use 600mg every six hours as needed. Take with food. Avoid using more than 2400mg in a 24 hour period. Do not use 2400mg per day for more than three consecutive days without physician direction. Prolonged inappropriate use can lead to stomach upset or ulcers. (AND/OR) Acetaminophen(Tylenol) may be used for fever or pain. Use 1000mg every six hours as needed. Avoid using more than 3000mg in a 24 hour period. Return to the ER for passing out, worsening headache, vision problems, neck stiffness/pain, fevers, vomiting, worsening of your condition, or as needed. Follow up with your primary physician in 2-3 days for a recheck of your current condition.
[2016-10-21 20:32] VITALS: BP 123/65; PULSE 81; O2SAT 99
== END 2016-10-21 20:32 | disposition home or self-care (01) ==
LOC: C.EDB 18:19 → C.EDA 20:32
DX: G43.909 Migraine, unspecified, not intractable, without status migrainosus (principal); F17.200 Nicotine dependence, unspecified, uncomplicated; E11.9 Type 2 diabetes mellitus without complications; I10 Essential (primary) hypertension; F90.9 Attention-deficit hyperactivity disorder, unspecified type; F32.9 Major depressive disorder, single episode, unspecified; E88.81 Metabolic syndrome and other insulin resistance; E66.9 Obesity, unspecified; Z68.41 Body mass index [BMI] 40.0-44.9, adult; Z79.84 Long term (current) use of oral hypoglycemic drugs; Z79.899 Other long term (current) drug therapy

== ENCOUNTER 2016-11-24 13:28 | Emergency (ER) | payer OTHER ==
[~2016-11-24] VITALS: Ht 180.3 cm; Wt 148.6 kg
[2016-11-24 13:32] VITALS: TEMP 36.7; Ht 180.3 cm; Wt 148.6 kg
[2016-11-24] MEDS ORDERED: VNTHFA/IN INH (13:42)
[2016-11-24] MEDS ORDERED: SODIUM CHLORIDE 0.9% 1000ML 500 ML IV STA (14:04)
[2016-11-24] MEDS ORDERED: PROMETHAZINE HCL INJ 25 MG/ML 1 ML VIAL IV STA (14:04)
[2016-11-24] MEDS ORDERED: SODIUM CHLORIDE 0.9% 1000ML 1,000 ML IV STA (14:04)
[2016-11-24] MEDS: MoRPHine SULFATE 10 MG/ML CARP/VIAL IV PRN ×2 (14:20→16:15)
[2016-11-24 14:28] LABS: BASO % 0.2 %; BASO ABS # 0.02 K/uL (0-0.2); COMPLETE YES; EOS % 0.5 %; HEMATOCRIT 43.6 % (37-47); IG% 0.5 %; LYMPH % 23.4 %; LYMPH ABS # 2.54 K/uL (1.2-3.4); MEAN CELL VOLUME 88.4 fL (80-100); MEAN CORPUSCULAR HEMOGLOBIN 31.4 pg (25-34); MEAN CORPUSCULAR HGB CONC 35.6 g/dl (32-36); MEAN PLATELET VOLUME 9.3 fL (7.4-10.4); MONO % 5.5 %; NEUT % 69.9 %; PLATELET COUNT 291 K/uL (130-400); RED BLOOD COUNT 4.93 M/uL (4.2-5.4); WHITE BLOOD COUNT 10.86 K/uL (4.8-10.8)
--- NOTE | 2016-11-24 14:29 | EMERGENCY ROOM VISIT NOTE ---
History Report prepared by Apurva: Lyndon Stewart Under the Supervision of: Dr. Amarjit Guaman M.D. First contact with patient: 14:00 Chief Complaint: PELVIC PAIN Stated Complaint: PELVIC PAIN History of Present Illness The patient is a 31 year old female who presents to the Emergency Room with complaints of intermittent lower abdominal pain that started a week ago. She describes the pain as a really bad cramping, sharp, and stabbing pain. The patient notes that she was sitting at her computer today and had intense stabbing pain that suddenly hit her, and she had to crawl into bed and curl up into a ball due to the severity of the pain. This happened around 2 hours ago. She states that this pain was worse than any other time she had the pain this past week. She also complains of nausea and episodes of diarrhea. The diarrhea started 2 days ago, and she has had 3 episodes in the past hour. She says that at first, the diarrhea wasn't watery, but then it became watery. She denies any hematuria. The patient has a history of D&C because her endometrial layer was too thick. She says that she has not spotted in a year, but she started intermittently spotting today. The patient also notes a brown vaginal discharge with a bad odor that started yesterday. Otherwise, she denies any fevers, vomiting, or urinary problems. The patient has never been , and she has never had an STD, and she has no concern of an STD. Today, her urine dip was negative for infection, and her urine was negative. Source of History: patient Onset: A week ago Position: abdomen (lower) Symptom Intensity: severe Quality: sharp, stabbing, cramping Timing: intermittent, worsening Associated Symptoms: + diarrhea, + nausea, No fevers, No urinary symptoms, No vomiting Note: Associated symptoms: Intermittent spotting today, brown vaginal discharge with bad odor starting yesterday. Review of Systems See HPI for pertinent positives & negatives. A total of 10 systems reviewed and were otherwise negative. Past Medical & Surgical Medical Problems: (1) Abdominal pain (2) Abnormal uterine bleeding (3) Abnormal uterine bleeding (4) Abnormal uterine bleeding (5) Abnormal vaginal bleeding (6) Attention deficit hyperactivity disorder (7) Back pain (8) Back pain (9) Back pain (10) Benign hypertension (11) Bipolar disorder (12) Body mass index 30+ - obesity (13) Cannabis abuse (14) Depression (15) Diabetes mellitus type 2 (16) Dysmenorrhea (17) Dysmenorrhea (18) dyspnea metabolic syndrome X (19) Gastroesophageal reflux disease (20) Headache (21) Hyperglycemia (22) Lower abdominal pain (23) Lower abdominal pain (24) Migraine (25) Migraine (26) Migraine (27) Pain, dental (28) PCOS (polycystic ovarian syndrome) (29) Polycystic ovaries (30) Posttraumatic stress disorder (31) Suicide by self-administered drug (32) Upper respiratory infection (33) Urinary tract infection (34) UTI (lower urinary tract infection) (35) UTI (lower urinary tract infection) Family History Diabetes mellitus FH: cancer FH: heart disease FH: lung disease FHx: gallbladder disease Hypertension Kidney disease Kidney stones Social History Smoking Status: Current Every Day Smoker Alcohol Use: none Drug Use: none Marital Status: single Housing Status: lives with family Occupation Status: employed Current/Historical Medications Scheduled Albuterol Hfa (Ventolin Hfa), 3 PUFFS INH Q6H Bupropion Hcl (Bupropion Hcl Er), 150 MG PO DAILY Metformin Hcl (Glucophage), 500 MG PO BIDM Methylphenidate (Ritalin), 10 MG PO BID Multiple Vitamins W/ Minerals (Biotin Plus/Calcium/Vit D), 1 TAB PO TID Topiramate (Topamax), 100 MG PO HS Topiramate (Topamax ), 25 MG PO QAM Scheduled PRN Lorazepam (Ativan), 1 MG PO DAILY PRN for Anxiety/Agitation Omeprazole (Prilosec), 20 MG PO TID PRN for Acid Reflux Ondasetron Odt (Zofran Odt), 4 MG SL Q6H PRN for Nausea Allergies Coded Allergies: Kiwi (Verified Allergy, Intermediate, TONGUE SWELLS, 11/24/16) Adhesives (Verified Allergy, Unknown, BLISTERS, 11/24/16) Macias Pepper (Verified Allergy, Unknown, IRRITATES THROAT, 11/24/16) GREEN PEPPERS Sumatriptan (Verified Allergy, Unknown, neck pain, 11/24/16) Ibuprofen (Verified Adverse Reaction, Severe, GI BLEED, 11/24/16) Physical Exam Vital Signs Date Time Temp Pulse Resp B/P Pulse Ox O2 Delivery O2 Flow Rate FiO2 11/24/16 16:45 93 18 124/64 97 11/24/16 15:10 97 18 124/61 97 Room Air 11/24/16 13:32 36.7 97 18 194/113 95 Room Air Physical Exam GENERAL: Patient is in no acute distress. HEENT: No acute trauma, normocephalic atraumatic, mucous membranes moist, no nasal congestion, no scleral icterus. NECK: No stridor, no adenopathy, no meningismus, trachea is midline. LUNGS: Clear to auscultation bilaterally, no wheeze, no rhonchi, breath sounds equal. HEART: Without murmurs gallops or rubs, regular rate and rhythm. ABDOMEN: Soft, bowel sounds positive, no hernias, no peritonitis. Tender to mid- pelvis near bladder, otherwise nontender. PELVIC: No vaginal discharge appreciated. Normal appearing cervix, no cervicitis. Cultures obtained. EXTREMITIES: No cyanosis or edema, full range of motion of all the joints without pain or difficulty, no signs for acute trauma. NEUROLOGIC: Oriented x 3, no acute motor or sensory deficits, no focal weakness. SKIN: No rash, no jaundice, no diaphoresis. Medical Decision & Procedures ER Provider Diagnostic Interpretation: US results as stated below per my review and radiologist interpretation: EXAMINATION: PELVIC ULTRASOUND (transabdominal and endovaginal scanning) CLINICAL HISTORY: Pelvic pain with nausea, vomiting, diarrhea. COMPARISON STUDY: 08/22/2016 FINDINGS: The uterus measured 7.3 x 3.6 x 4.7 cm. The endometrial stripe measured 7 mm. An IUD is visualized.. The right ovary measured 43 x 29 x 34 mm. The left ovary measured 40 x 31 x 33 mm. There is no ultrasonographic evidence of ovarian torsion. It should be noted that ovarian torsion can be present with normal Doppler ultrasonographic findings. There was no evidence of pathologic free pelvic fluid. IMPRESSION: Normal pelvic ultrasound. Electronically signed by: Krishna Hayden M.D. 11/24/2016 3:46 PM Dictated Date/Time: 11/24/2016 3:44 PM Laboratory Results 11/24/16 14:20 Red Blood Count 4.93, Mean Corpuscular Volume 88.4, Mean Corpuscular Hemoglobin 31.4, Mean Corpuscular Hemoglobin Concent 35.6, Mean Platelet Volume 9.3, Neutrophils (%) (Auto) 69.9, Lymphocytes (%) (Auto) 23.4, Monocytes (%) (Auto) 5.5, Eosinophils (%) (Auto) 0.5, Basophils (%) (Auto) 0.2, Neutrophils # (Auto) 7.60, Lymphocytes # (Auto) 2.54, Monocytes # (Auto) 0.60, Eosinophils # (Auto) 0.05, Basophils # (Auto) 0.02 11/24/16 14:20 Test 11/24/16 13:55 11/24/16 14:20 11/24/16 14:25 Urine Test NEG (NEG) White Blood Count 10.86 K/uL (4.8-10.8) Red Blood Count 4.93 M/uL (4.2-5.4) Hemoglobin 15.5 g/dL (12.0-16.0) Hematocrit 43.6 % (37-47) Mean Corpuscular Volume 88.4 fL (80-100) Mean Corpuscular Hemoglobin 31.4 pg (25-34) Mean Corpuscular Hemoglobin Concent 35.6 g/dl (32-36) Platelet Count 291 K/uL (130-400) Mean Platelet Volume 9.3 fL (7.4-10.4) Neutrophils (%) (Auto) 69.9 % Lymphocytes (%) (Auto) 23.4 % Monocytes (%) (Auto) 5.5 % Eosinophils (%) (Auto) 0.5 % Basophils (%) (Auto) 0.2 % Neutrophils # (Auto) 7.60 K/uL (1.4-6.5) Lymphocytes # (Auto) 2.54 K/uL (1.2-3.4) Monocytes # (Auto) 0.60 K/uL (0.11-0.59) Eosinophils # (Auto) 0.05 K/uL (0-0.5) Basophils # (Auto) 0.02 K/uL (0-0.2) RDW Standard Deviation 40.3 fL (36.4-46.3) RDW Coefficient of Variation 12.7 % (11.5-14.5) Immature Granulocyte % (Auto) 0.5 % Immature Granulocyte # (Auto) 0.05 K/uL (0.00-0.02) Anion Gap 12.0 mmol/L (3-11) Est Creatinine Clear Calc Drug Dose 166.9 ml/min Estimated GFR () 115.5 Estimated GFR (Non- 99.6 BUN/Creatinine Ratio 15.3 (10-20) Calcium Level 8.9 mg/dl (8.5-10.1) Total Bilirubin 0.6 mg/dl (0.2-1) Aspartate Amino Transf (AST/SGOT) 19 U/L (15-37) Alanine Aminotransferase (ALT/SGPT) 40 U/L (12-78) Alkaline Phosphatase 92 U/L (45-117) Total Protein 7.6 gm/dl (6.4-8.2) Albumin 3.5 gm/dl (3.4-5.0) Globulin 4.1 gm/dl (2.5-4.0) Albumin/Globulin Ratio 0.9 (0.9-2) Lipase 139 U/L (73-393) Date/Time Source Procedure Growth Status 11/24/16 14:25 Vaginal Swab Trichomonas Preparation - Final Complete Laboratory results reviewed by me. Medications Administered Medications (Trade) Dose Ordered Sig/Angela Route Start Time Stop Time Status Last Admin Dose Admin Sodium Chloride 500 ml @ 999 mls/hr Q31M STAT IV 11/24/16 14:04 11/24/16 14:34 DC 11/24/16 14:20 999 MLS/HR Sodium Chloride (Nss 1000ml) 1,000 ml @ 200 mls/hr Q5H STAT IV 11/24/16 14:04 11/24/16 17:07 DC 11/24/16 14:20 200 MLS/HR Morphine Sulfate 6 mg 6 mg Q30M PRN IV 11/24/16 14:15 11/24/16 17:07 DC 11/24/16 16:15 6 MG Promethazine HCl/ Sodium Chloride (Phenergan Inj/ Nss 50ml) 50.5 ml @ 202 mls/hr 1430 ONCE IV 11/24/16 14:30 11/24/16 14:44 DC 11/24/16 14:36 202 MLS/HR Oxycodone HCl (Roxicodone Immediate Rel 5MG Home Pack) 1 homepack UD ONCE PO 11/24/16 16:30 11/24/16 16:31 DC 11/24/16 16:42 1 HOMEPACK ED Course 1401: The patient was evaluated in room B9. A complete history and physical exam was performed. 1404: Ordered NSS 1000 ml @ 200 mls/hr IV, Phenergan Inj 12.5 mg IV, NSS 500 ml @ 999 mls/hr IV. 1415: Ordered Morphine Sulfate Inj 6 mg IV PRN. 1626: I reevaluated the patient and she is resting comfortably. The patient verbally expressed understanding and agreement of the treatment plan. The patient will be discharged. 1630: Ordered Roxicodone Immediate Rel 5MG Home Pack 1 homepack PO. Medical Decision Differential diagnosis includes but is not limited to ovarian cyst, UTI, , ovarian torsion, uterine cramping, STD, appendicitis, diverticulitis , hernia, musculoskeletal pain. There is no significant leukocytosis. No anemia. No significant electrolyte abnormality, kidney failure, hepatitis or pancreatitis. Urine dip does not show infection. testing is negative. Pelvic ultrasound shows no ovarian cysts, no ovarian torsion, no mass. On exam, the patient does not have peritonitis. She is not toxic or febrile. Pelvic exam was unrevealing, vaginal cultures were sent and are pending. The patient received IV saline, IV Phenergan and IV morphine, she is feeling improved. The patient can use [id number] Imodium for her diarrhea, I will give her a few oxycodone for severe pain, heat, rest were encouraged. We can call her with any positive vaginal culture results. The patient's pain is either intestinal colic or urinary cramping or maybe a combination of the 2. She is stable for discharge home. Impression Primary Impression: Pelvic pain Scribe Attestation The scribe's documentation has been prepared under my direction and personally reviewed by me in its entirety. I confirm that the note above accurately reflects all work, treatment, procedures, and medical decision making performed by me. Departure Information Dispostion Home / Self-Care Referrals Leon Ross D.O. (PCP) Forms HOME CARE DOCUMENTATION FORM, IMPORTANT VISIT INFORMATION Patient Instructions My [facility] Additional Instructions tylenol for pain may use oxy ir 1 tab every 6 hours for severe pain talk with your ob group saturday return for fever, uncontrolled pain or vomiting testing and imaging today was all ok we will call with positive vaginal cultures requiring treatment
[2016-11-24] MEDS ORDERED: PROMETHAZINE HCL INJ 12.5 MG in SODIUM CHLORIDE 0.9% 50ML 50 ML IV ONE (14:30)
[2016-11-24 14:47] LABS: BUN/CREATININE RATIO 15.3 (10-20); CALCIUM 8.9 mg/dl (8.5-10.1); CREATININE 0.8 mg/dl (0.60-1.20)
[2016-11-24 14:49] LABS: ALB/GLOB RATIO 0.9 (0.9-2)
--- NOTE | 2016-11-24 15:48 | DIAGNOSTIC IMAGING REPORT ---
EXAMINATION: PELVIC ULTRASOUND (transabdominal and endovaginal scanning) CLINICAL HISTORY: Pelvic pain with nausea, vomiting, diarrhea. COMPARISON STUDY: 08/22/2016 FINDINGS: The uterus measured 7.3 x 3.6 x 4.7 cm. The endometrial stripe measured 7 mm. An IUD is visualized.. The right ovary measured 43 x 29 x 34 mm. The left ovary measured 40 x 31 x 33 mm. There is no ultrasonographic evidence of ovarian torsion. It should be noted that ovarian torsion can be present with normal Doppler ultrasonographic findings. There was no evidence of pathologic free pelvic fluid. IMPRESSION: Normal pelvic ultrasound. Electronically signed by: Krishna Hayden M.D. 11/24/2016 3:46 PM Dictated Date/Time: 11/24/2016 3:44 PM
[2016-11-24] MEDS ORDERED: OXYCODONE IR HOME PACK PO ONE (16:30)
[2016-11-24 16:45] VITALS: BP 124/64; PULSE 93; O2SAT 97
[2016-11-28 00:19] LABS: CHLAMYDIA TRACH RNA*** NOT DETECTED (NOT DETECTED); GC (NEIS GONORRHOEAE)RNA** NOT DETECTED (NOT DETECTED)
== END 2016-11-24 16:46 | disposition home or self-care (01) ==
LOC: C.EDB 13:30
DX: R10.2 Pelvic and perineal pain (principal); R11.2 Nausea with vomiting, unspecified; R19.7 Diarrhea, unspecified; E11.9 Type 2 diabetes mellitus without complications; I10 Essential (primary) hypertension; K21.9 Gastro-esophageal reflux disease without esophagitis; F31.9 Bipolar disorder, unspecified; E28.2 Polycystic ovarian syndrome; F17.200 Nicotine dependence, unspecified, uncomplicated; Z87.440 Personal history of urinary (tract) infections; Z79.4 Long term (current) use of insulin; Z79.899 Other long term (current) drug therapy; Z88.8 Allergy status to other drugs, medicaments and biological substances; Z91.018 Allergy to other foods; Z91.09 Other allergy status, other than to drugs and biological substances; Z83.3 Family history of diabetes mellitus; Z80.9 Family history of malignant neoplasm, unspecified; Z82.49 Family history of ischemic heart disease and other diseases of the circulatory system; Z83.79 Family history of other diseases of the digestive system; Z84.1 Family history of disorders of kidney and ureter

== ENCOUNTER 2016-12-25 18:46 | Emergency (ER) | payer OTHER ==
[~2016-12-25] VITALS: Ht 180.3 cm; Wt 155.2 kg
[2016-12-25 18:51] VITALS: TEMP 37; Ht 180.3 cm; Wt 155.2 kg
[2016-12-25] MEDS ORDERED: KETOROLAC TROMETHAMINE 30 MG/ML VIAL IV STA (19:04)
[2016-12-25] MEDS ORDERED: SODIUM CHLORIDE 0.9% 1000ML 1,000 ML IV STA (19:04)
[2016-12-25] MEDS ORDERED: ONDANSETRON INJ 2 MG/ML 2 ML VIAL IV STA ×2 (19:04→22:17)
--- NOTE | 2016-12-25 19:10 | EMERGENCY ROOM VISIT NOTE ---
History Report prepared by Apurva: Rebecca Llanos Under the Supervision of: Emeterio StephenO. First contact with patient: 18:54 Chief Complaint: URINARY SYMPTOMS Stated Complaint: POSSIBL UTI, KIDNEY STONE OR KIDNEY INFECTION History of Present Illness The patient is a 31 year old female who presents to the Emergency Room with complaints of worsening urinary symptoms starting 2 days ago. She reports burning with urination and increased frequency of urination. She has been taking Azo, cranberry juice, and water without relief. She took some left over Flagyl at home for a prior UTI without relief. She also complains of right lower back pain starting last night. She describes it as a severe, cramping which wraps around to the abdomen. She has a history of UTI with similar symptoms but reports the severity of her pain is much worse today. She has a kidney stone for the past 2 years in her right kidney but has not passed it yet. She also has a history of cholecystectomy. She denies any history of appendectomy. The patient denies fevers, nausea, vomiting, vaginal bleeding/ discharge, or any other complaints. Her last normal bowel movement was today. Source of History: patient Onset: 2 days ago Position: other (global) Quality: other (urinary symptoms) Timing: worsening Modifying Factors (Relieving): other (Azo, flagyl, cranberry juice, and water without relief) Associated Symptoms: + abdominal pain, + back pain, No fevers, No nausea, No vomiting Review of Systems See HPI for pertinent positives & negatives. A total of 10 systems reviewed and were otherwise negative. Past Medical & Surgical Medical Problems: (1) Abdominal pain (2) Abnormal uterine bleeding (3) Abnormal uterine bleeding (4) Abnormal uterine bleeding (5) Abnormal vaginal bleeding (6) Attention deficit hyperactivity disorder (7) Back pain (8) Back pain (9) Back pain (10) Benign hypertension (11) Bipolar disorder (12) Body mass index 30+ - obesity (13) Cannabis abuse (14) Depression (15) Diabetes mellitus type 2 (16) Dysmenorrhea (17) Dysmenorrhea (18) dyspnea metabolic syndrome X (19) Gastroesophageal reflux disease (20) Headache (21) Hyperglycemia (22) Lower abdominal pain (23) Lower abdominal pain (24) Migraine (25) Migraine (26) Migraine (27) Pain, dental (28) PCOS (polycystic ovarian syndrome) (29) Polycystic ovaries (30) Posttraumatic stress disorder (31) Suicide by self-administered drug (32) Upper respiratory infection (33) Urinary tract infection (34) UTI (lower urinary tract infection) (35) UTI (lower urinary tract infection) Family History Diabetes mellitus FH: cancer FH: heart disease FH: lung disease FHx: gallbladder disease Hypertension Kidney disease Kidney stones Social History Smoking Status: Current Every Day Smoker Alcohol Use: none Drug Use: none Marital Status: single Housing Status: lives with family Occupation Status: employed Current/Historical Medications Scheduled Albuterol Hfa (Ventolin Hfa), 3 PUFFS INH Q6H Bupropion Hcl (Bupropion Hcl Er), 150 MG PO DAILY Metformin Hcl (Glucophage), 500 MG PO BIDM Methylphenidate (Ritalin), 10 MG PO BID Multiple Vitamins W/ Minerals (Biotin Plus/Calcium/Vit D), 1 TAB PO TID Sulfamethoxazole-Trimethoprim (Bactrim Ds 800MG/160MG), 1 TAB PO BID Topiramate (Topamax), 100 MG PO HS Topiramate (Topamax ), 25 MG PO QAM Scheduled PRN Lorazepam (Ativan), 1 MG PO DAILY PRN for Anxiety/Agitation Omeprazole (Prilosec), 20 MG PO TID PRN for Acid Reflux Ondasetron Odt (Zofran Odt), 4 MG SL Q6H PRN for Nausea Allergies Coded Allergies: Kiwi (Verified Allergy, Intermediate, TONGUE SWELLS, 12/25/16) Adhesives (Verified Allergy, Unknown, BLISTERS, 12/25/16) Macias Pepper (Verified Allergy, Unknown, IRRITATES THROAT, 12/25/16) GREEN PEPPERS Sumatriptan (Verified Allergy, Unknown, neck pain, 12/25/16) Ibuprofen (Verified Adverse Reaction, Severe, GI BLEED, 12/25/16) Physical Exam Vital Signs Date Time Temp Pulse Resp B/P Pulse Ox O2 Delivery O2 Flow Rate FiO2 12/25/16 23:04 82 18 132/78 96 Room Air 12/25/16 21:03 80 20 146/80 96 Room Air 12/25/16 18:51 37.0 89 16 142/95 96 Room Air Physical Exam GENERAL: Sitting up in bed, disheveled, no distress, non-toxic EYE EXAM: normal conjunctiva OROPHARYNX: no exudate, no erythema, lips, buccal mucosa, and tongue normal and mucous membranes are moist NECK: supple, no nuchal rigidity, no adenopathy, non-tender LUNGS: Clear to auscultation. Normal chest wall mechanics HEART: no murmurs, S1 normal and S2 normal ABDOMEN: abdomen soft, non-tender, normo-active bowel sounds, no masses, no rebound or guarding. PELVIC EXAM: Normal external genitalia. No obvious discharge. No cervical motion tenderness. BACK: Back is symmetrical on inspection and there is no deformity, no midline tenderness, no CVA tenderness. Acute reproducible tenderness in the right lower lumbar paraspinal region. SKIN: no rashes and no bruising UPPER EXTREMITIES: upper extremities are grossly normal. LOWER EXTREMITIES: No pitting edema. NEURO EXAM: Normal sensorium, cranial nerves II-XII grossly intact, normal speech, no gross weakness of arms, no gross weakness of legs. Medical Decision & Procedures ER Provider Diagnostic Interpretation: US:Per my review, radiologist interpretation. RENAL ULTRASOUND HISTORY: Right flank pain. COMPARISON: Renal ultrasound 06/15/2016. Abdomen and pelvis CT 04/08/2016. FINDINGS: Right kidney: 12.3 cm. No hydronephrosis. Normal corticomedullary differentiation and cortical thickness. Stable 5 mm stone within the lower pole of the right kidney. Left kidney: 12.0 cm. No hydronephrosis. Normal corticomedullary differentiation and cortical thickness. Bladder: No bladder wall thickening. The bilateral ureteral jets were identified. IMPRESSION: Stable 5 mm right renal stone. No hydronephrosis. Electronically signed by: Taurus Mckeon M.D. 12/25/2016 8:38 PM Dictated Date/Time: 12/25/2016 8:36 PM Laboratory Results 12/25/16 19:10 Red Blood Count 4.83, Mean Corpuscular Volume 89.4, Mean Corpuscular Hemoglobin 32.1, Mean Corpuscular Hemoglobin Concent 35.9, Mean Platelet Volume 9.4, Neutrophils (%) (Auto) 63.5, Lymphocytes (%) (Auto) 27.7, Monocytes (%) (Auto) 7.3, Eosinophils (%) (Auto) 1.1, Basophils (%) (Auto) 0.2, Neutrophils # (Auto) 5.33, Lymphocytes # (Auto) 2.33, Monocytes # (Auto) 0.61, Eosinophils # (Auto) 0.09, Basophils # (Auto) 0.02 12/25/16 19:10 Test 12/25/16 19:00 12/25/16 19:10 Urine Color DK YELLOW Urine Appearance CLEAR (CLEAR) Urine pH 7.5 (4.5-7.5) Urine Specific [place] 1.006 (1.000-1.030) Urine Protein NEG (NEG) Urine Glucose (UA) NEG (NEG) Urine Ketones NEG (NEG) Urine Occult Blood NEG (NEG) Urine Nitrite POS (NEG) Urine Bilirubin NEG (NEG) Urine Urobilinogen NEG (NEG) Urine Leukocyte Esterase TRACE (NEG) Urine WBC (Auto) 1-5 /hpf (0-5) Urine RBC (Auto) 0-4 /hpf (0-4) Urine Hyaline Casts (Auto) 0 /lpf (0-5) Urine Epithelial Cells (Auto) 10-20 /lpf (0-5) Urine Bacteria (Auto) NEG (NEG) Urine Test NEG (NEG) White Blood Count 8.40 K/uL (4.8-10.8) Red Blood Count 4.83 M/uL (4.2-5.4) Hemoglobin 15.5 g/dL (12.0-16.0) Hematocrit 43.2 % (37-47) Mean Corpuscular Volume 89.4 fL (80-100) Mean Corpuscular Hemoglobin 32.1 pg (25-34) Mean Corpuscular Hemoglobin Concent 35.9 g/dl (32-36) Platelet Count 278 K/uL (130-400) Mean Platelet Volume 9.4 fL (7.4-10.4) Neutrophils (%) (Auto) 63.5 % Lymphocytes (%) (Auto) 27.7 % Monocytes (%) (Auto) 7.3 % Eosinophils (%) (Auto) 1.1 % Basophils (%) (Auto) 0.2 % Neutrophils # (Auto) 5.33 K/uL (1.4-6.5) Lymphocytes # (Auto) 2.33 K/uL (1.2-3.4) Monocytes # (Auto) 0.61 K/uL (0.11-0.59) Eosinophils # (Auto) 0.09 K/uL (0-0.5) Basophils # (Auto) 0.02 K/uL (0-0.2) RDW Standard Deviation 41.0 fL (36.4-46.3) RDW Coefficient of Variation 12.6 % (11.5-14.5) Immature Granulocyte % (Auto) 0.2 % Immature Granulocyte # (Auto) 0.02 K/uL (0.00-0.02) Anion Gap 7.0 mmol/L (3-11) Est Creatinine Clear Calc Drug Dose 142.7 ml/min Estimated GFR () 92.6 Estimated GFR (Non- 79.9 BUN/Creatinine Ratio 6.4 (10-20) Calcium Level 8.5 mg/dl (8.5-10.1) Total Bilirubin 0.2 mg/dl (0.2-1) Direct Bilirubin < 0.1 mg/dl (0-0.2) Aspartate Amino Transf (AST/SGOT) 25 U/L (15-37) Alanine Aminotransferase (ALT/SGPT) 47 U/L (12-78) Alkaline Phosphatase 105 U/L (45-117) Total Protein 7.2 gm/dl (6.4-8.2) Albumin 3.3 gm/dl (3.4-5.0) Lipase 143 U/L (73-393) Laboratory results per my review. Medications Administered Medications (Trade) Dose Ordered Sig/Angela Route Start Time Stop Time Status Last Admin Dose Admin Ketorolac Tromethamine (Toradol Inj) 30 mg NOW STAT IV 12/25/16 19:04 12/25/16 19:05 DC 12/25/16 19:26 30 MG Ondansetron HCl 4 mg 4 mg NOW STAT IV 12/25/16 19:04 12/25/16 19:05 DC 12/25/16 19:26 4 MG Sodium Chloride (Nss 1000ml) 1,000 ml @ 999 mls/hr Q1H1M STAT IV 12/25/16 19:04 12/25/16 20:04 DC 12/25/16 19:26 999 MLS/HR Ceftriaxone Sodium (Rocephin Inj) 1 gm NOW STAT IV 12/25/16 20:47 12/25/16 20:49 DC 12/25/16 20:58 1 GM Morphine Sulfate (MoRPHine SULFATE INJ) 4 mg NOW STAT IV 12/25/16 22:17 12/25/16 22:18 DC 12/25/16 22:28 4 MG Ondansetron HCl (Zofran Inj) 4 mg NOW STAT IV 12/25/16 22:17 12/25/16 22:18 DC 12/25/16 22:27 4 MG ED Course ED COURSE: Vital signs were reviewed and showed normal. The patients medical record was reviewed The above diagnostic studies were performed and reviewed. ED treatments and interventions as stated above. 1854: The patient was evaluated in room C05. A complete history and physical examination was performed. 1904: Sodium Chloride 1000 ml @ 999 mls/hr IV, Zofran Inj 4 mg IV, Toradol Inj 30 mg IV 2046: Rocephin Inj 1 gm IV. I reevaluated the patient who is resting comfortably. 2209: Upon reevaluation, the patient reports that the pain is including the right lower quadrant now. I recommended CT and she declined because she said this is consistent with her PCOS. I discussed my findings with the patient and she understands and agrees with the treatment plan. Based on the patients age, coexisting illnesses, exam and lab findings the decision to treat as an outpatient was made. The patient remained stable while under my care. The patient appeared well at the time of discharge. 7: Zofran Inj 4 mg IV, Morphine Sulfate 4 mg IV Medical Decision Differential diagnoses includes but is not limited to gastritis, peptic ulcer disease, GERD, gallbladder disease, pancreatitis, small bowel obstruction, acute coronary syndrome, pericarditis, ischemic bowel, irritable bowel disease, irritable bowel syndrome, appendicitis, diverticulitis, malignancy, hernia, urinary tract infection, /ectopic , perforation, trauma, infectious. Patient is a 31-year-old female who presents the ER for dysuria, urgency and frequency which has been worsening since this past Saturday. She admits to lower abdominal pain and right flank pain. She notes this feels like her kidney stone although she's never had one before. While walking down the hallway she was laughing with her friend. My initial exam she was laughing and very comfortable. I do not feel this was consistent with a stone. Renal ultrasound was unremarkable. No hydronephrosis. CBC along with BMP, LFTs bilirubin and lipase were normal. UA had nitrates along with leukocytes. She has been on Flagyl for 3 days consequently I do believe this is likely a partially treated UTI. was negative. Vitals are unremarkable. She was given Toradol with some mild improvement. Pelvic exam was unremarkable. Just following her pelvic exam she started complaining of right lower quadrant pain. I recommended a CT to rule out a possible appendicitis/ovarian torsion but she declined stating that this feels exactly like her previous polycystic ovarian disease. She was discharged on Bactrim. Discussed with Pt concerning signs and symptoms to watch out for. Pt was instructed to follow up with their PCP and discussed with the patient their option to return to the ED at anytime for persistent or worsening symptoms. The appropriate anticipatory guidance and out- patient management, including indications for return to the emergency department , were explained at length to the patient and understood. Impression Primary Impression: Urinary tract infection Additional Impression: Symptoms of urinary tract infection Scribe Attestation The scribe's documentation has been prepared under my direction and personally reviewed by me in its entirety. I confirm that the note above accurately reflects all work, treatment, procedures, and medical decision making performed by me. Departure Information Dispostion Home / Self-Care Prescriptions Sulfamethoxazole-Trimethoprim (Bactrim Ds 800MG/160MG) 1 Tab Tab 1 TAB PO BID, #10 TAB Prov: Liu Cutler, 12/25/16 Referrals Leon Ross D.OSanya (PCP) Forms HOME CARE DOCUMENTATION FORM, IMPORTANT VISIT INFORMATION Patient Instructions My [facility], UTI Additional Instructions Please follow up with your primary care doctor with in the next 24 hours. Any worsening of your symptoms, please return to the ED immediately. This includes fevers greater than 100.4, persistent nausea vomiting, worsening pain, or any other concerning signs or symptoms from your standpoint. Please take the antibiotics as prescribed. Please do not drive, work or operate heavy machinery for the next 8 hours with the medications are given. Problem Qualifiers Primary Impression: Urinary tract infection Urinary tract infection type: site unspecified Hematuria presence: without hematuria Qualified Codes: N39.0 - Urinary tract infection, site not specified
[2016-12-25 19:24] LABS: BASO % 0.2 %; BASO ABS # 0.02 K/uL (0-0.2); COMPLETE YES; EOS % 1.1 %; HEMATOCRIT 43.2 % (37-47); IG% 0.2 %; LYMPH % 27.7 %; LYMPH ABS # 2.33 K/uL (1.2-3.4); MEAN CELL VOLUME 89.4 fL (80-100); MEAN CORPUSCULAR HEMOGLOBIN 32.1 pg (25-34); MEAN CORPUSCULAR HGB CONC 35.9 g/dl (32-36); MEAN PLATELET VOLUME 9.4 fL (7.4-10.4); MONO % 7.3 %; NEUT % 63.5 %; PLATELET COUNT 278 K/uL (130-400); RED BLOOD COUNT 4.83 M/uL (4.2-5.4)
[2016-12-25 19:47] LABS: ALT/SGPT 47 U/L (12-78); AST/SGOT 25 U/L (15-37); BLOOD UREA NITROGEN 6 mg/dl (7-18); BUN/CREATININE RATIO 6.4 (10-20); CALCIUM 8.5 mg/dl (8.5-10.1); CARBON DIOXIDE 27 mmol/L (21-32); CHLORIDE 108 mmol/L (98-107); CREATININE 0.96 mg/dl (0.60-1.20); GLUCOSE 108 mg/dl (70-99); POTASSIUM 3.9 mmol/L (3.5-5.1); SODIUM 142 mmol/L (136-145)
[2016-12-25 19:50] LABS: ALKALINE PHOSPHATASE 105 U/L (45-117)
--- NOTE | 2016-12-25 20:39 | DIAGNOSTIC IMAGING REPORT ---
RENAL ULTRASOUND HISTORY: Right flank pain. COMPARISON: Renal ultrasound 06/15/2016. Abdomen and pelvis CT 04/08/2016. FINDINGS: Right kidney: 12.3 cm. No hydronephrosis. Normal corticomedullary differentiation and cortical thickness. Stable 5 mm stone within the lower pole of the right kidney. Left kidney: 12.0 cm. No hydronephrosis. Normal corticomedullary differentiation and cortical thickness. Bladder: No bladder wall thickening. The bilateral ureteral jets were identified. IMPRESSION: Stable 5 mm right renal stone. No hydronephrosis. Electronically signed by: Taurus Mckeon M.D. 12/25/2016 8:38 PM Dictated Date/Time: 12/25/2016 8:36 PM
[2016-12-25] MEDS ORDERED: CEFTRIAXONE SOD INJ 1 GM ADDVIAL IV STA (20:47)
[2016-12-25 21:00] LABS: URINE APPEARANCE CLEAR (CLEAR); URINE BILIRUBIN NEG (NEG); URINE COLOR DK YELLOW; URINE NITRITE POS (NEG); URINE PH 7.5 (4.5-7.5); URINE SPECIFIC GRAVITY 1.006 (1.000-1.030); UROBILINOGEN NEG (NEG); ZZUR CULT IF INDIC CLEAN CATCH NO
[2016-12-25 21:04] LABS: MANUAL MICROSCOPIC REQUIRED? NO; REVIEW REQ? NO
[2016-12-25] MEDS ORDERED: SULF800T23 PO (22:16)
[2016-12-25] MEDS ORDERED: MoRPHine SULFATE 4 MG/ML 1 ML CARP\\VIAL IV STA (22:17)
[2016-12-25 23:04] VITALS: BP 132/78; PULSE 82; O2SAT 96
[2016-12-27 15:25] LABS: CHLAMYDIA TRACH RNA*** NOT DETECTED (NOT DETECTED); GC (NEIS GONORRHOEAE)RNA** NOT DETECTED (NOT DETECTED)
== END 2016-12-25 23:05 | disposition home or self-care (01) ==
LOC: C.EDB 18:47 → C.EDC 23:05
DX: N39.0 Urinary tract infection, site not specified (principal); E11.9 Type 2 diabetes mellitus without complications; I10 Essential (primary) hypertension; K21.9 Gastro-esophageal reflux disease without esophagitis; F32.9 Major depressive disorder, single episode, unspecified; F90.9 Attention-deficit hyperactivity disorder, unspecified type; F31.9 Bipolar disorder, unspecified; E28.2 Polycystic ovarian syndrome; F17.200 Nicotine dependence, unspecified, uncomplicated; Z86.19 Personal history of other infectious and parasitic diseases; Z87.440 Personal history of urinary (tract) infections; Z79.84 Long term (current) use of oral hypoglycemic drugs; Z79.899 Other long term (current) drug therapy; Z88.6 Allergy status to analgesic agent; Z88.8 Allergy status to other drugs, medicaments and biological substances; Z91.018 Allergy to other foods; Z91.09 Other allergy status, other than to drugs and biological substances; Z83.3 Family history of diabetes mellitus; Z80.9 Family history of malignant neoplasm, unspecified; Z82.49 Family history of ischemic heart disease and other diseases of the circulatory system; Z83.79 Family history of other diseases of the digestive system; Z84.1 Family history of disorders of kidney and ureter

== ENCOUNTER 2017-01-24 21:05 | Emergency (ER) | payer OTHER ==
[~2017-01-24] VITALS: Ht 180.3 cm; Wt 152.1 kg
[2017-01-24 21:15] VITALS: BP 170/101; PULSE 99; TEMP 36.7; O2SAT 96; Ht 180.3 cm; Wt 152.1 kg
[2017-01-24] MEDS ORDERED: PROCHLORPERAZINE 5 MG/ML 2 ML VIAL IM STA (21:40)
[2017-01-24] MEDS ORDERED: KETOROLAC TROMETHAMINE 60 MG/2 ML VIAL IM STA (21:40)
[2017-01-24] MEDS ORDERED: MoRPHine SULFATE 10 MG/ML CARP/VIAL IM STA (21:40)
--- NOTE | 2017-01-25 05:13 | EMERGENCY ROOM VISIT NOTE ---
History First contact with patient: 21:37 Chief Complaint: HEADACHE Stated Complaint: MIGRAINE FOR 5 DAYS History of Present Illness The patient is a 31 year old female who presents to the Emergency Room with complaints of migraine headache that started a few days ago. Headache was slow in onset. She reports a frontal / retro-orbital headache that she rates a 8/ 10. She reports associated nausea and vomiting 1. She tried Tylenol at home without relief. She states that this is typical of her usual migraine. She is under the care of [facility] in [place]. She reports that multiple appointments with the [facility] neurology in [place] had been canceled going back to April. She denies any changes in her medication regimen. The patient denies fever or chills recently, and there is no weakness or numbness of the extremities. There is no difficulty with speech or vision. No trauma to the head and no neck pain. The pain is severe, constant, and it is slowly increasing in severity. This is not the worst headache of the life and is similar to previous migraines. Previous imaging studies of the brain (CT scans ) have been normal. Review of Systems See HPI for pertinent positives & negatives. A total of 10 systems reviewed and were otherwise negative. Past Medical/Surgical History Medical Problems: (1) Abdominal pain (2) Abnormal uterine bleeding (3) Abnormal uterine bleeding (4) Abnormal uterine bleeding (5) Abnormal vaginal bleeding (6) Attention deficit hyperactivity disorder (7) Back pain (8) Back pain (9) Back pain (10) Benign hypertension (11) Bipolar disorder (12) Body mass index 30+ - obesity (13) Cannabis abuse (14) Depression (15) Diabetes mellitus type 2 (16) Dysmenorrhea (17) Dysmenorrhea (18) dyspnea metabolic syndrome X (19) Gastroesophageal reflux disease (20) Headache (21) Hyperglycemia (22) Lower abdominal pain (23) Lower abdominal pain (24) Migraine (25) Migraine (26) Migraine (27) Pain, dental (28) PCOS (polycystic ovarian syndrome) (29) Polycystic ovaries (30) Posttraumatic stress disorder (31) Suicide by self-administered drug (32) Upper respiratory infection (33) Urinary tract infection (34) UTI (lower urinary tract infection) (35) UTI (lower urinary tract infection) Family History Diabetes mellitus FH: cancer FH: heart disease FH: lung disease FHx: gallbladder disease Hypertension Kidney disease Kidney stones Social History Smoking Status: Current Every Day Smoker Alcohol Use: none Drug Use: none Marital Status: single Housing Status: lives with family Occupation Status: employed Current/Historical Medications Scheduled Albuterol Hfa (Ventolin Hfa), 3 PUFFS INH Q6H Bupropion Hcl (Bupropion Hcl Er), 150 MG PO DAILY Metformin Hcl (Glucophage), 500 MG PO BIDM Methylphenidate (Ritalin), 10 MG PO BID Multiple Vitamins W/ Minerals (Biotin Plus/Calcium/Vit D), 1 TAB PO TID Topiramate (Topamax), 100 MG PO HS Topiramate (Topamax ), 25 MG PO QAM Scheduled PRN Lorazepam (Ativan), 1 MG PO DAILY PRN for Anxiety/Agitation Omeprazole (Prilosec), 20 MG PO TID PRN for Acid Reflux Ondasetron Odt (Zofran Odt), 4 MG SL Q6H PRN for Nausea Allergies Coded Allergies: Kiwi (Verified Allergy, Intermediate, TONGUE SWELLS, 01/24/17) Adhesives (Verified Allergy, Unknown, BLISTERS, 01/24/17) Macias Pepper (Verified Allergy, Unknown, IRRITATES THROAT, 01/24/17) GREEN PEPPERS Sumatriptan (Verified Allergy, Unknown, neck pain, 01/24/17) Ibuprofen (Verified Adverse Reaction, Severe, GI BLEED, 01/24/17) Physical Exam Vital Signs Date Time Temp Pulse Resp B/P (MAP) Pulse Ox O2 Delivery O2 Flow Rate FiO2 01/24/17 21:15 36.7 99 18 170/101 96 Room Air Pain Rating (0-10): 7.0 Physical Exam VITALS: Vitals are noted on the nurse's note and reviewed by myself. Vital signs stable. GENERAL: Pleasant female, in no acute distress, nondiaphoretic, well-developed well-nourished. SKIN: The skin was without rashes, erythema, edema, or bruising. There is no tenting of the skin. Capillary reflex less than 2 seconds. HEAD: Normocephalic atraumatic. EARS: External auditory canals clear, tympanic membranes pearly bashir without erythema or effusion bilaterally. EYES: Pupils equal round and reactive to light and accommodation. Conjunctivae without injection, sclerae without icterus. Extraocular movements intact. NOSE: Patent, turbinates without inflammation or discharge. No sinus tenderness. MOUTH: Mucous membranes moist. Pharynx without erythema or exudate. Uvula midline. Airway patent. Tongue does not deviate. NECK: Supple without nuchal rigidity. No lymphadenopathy. No thyromegaly. Cervical spine is nontender. No JVD. No meningeal signs HEART: Regular rate and rhythm without murmurs gallops or rubs. LUNGS: Clear to auscultation bilaterally without wheezes, rales or rhonchi. No dullness to percussion. No retractions or accessory muscle use. ABDOMEN: Positive bowel sounds x 4. Normal tympanic percussion. Soft, nontender, without masses or organomegaly. Posey sign negative. No guarding or rebound tenderness. MUSCULOSKELETAL: No muscle atrophy, erythema, or edema noted. NEURO: Patient was alert and oriented to person place and time. Normal sensation to light and sharp touch. No focal neurological deficits. Cranial nerves II through XII grossly intact. No pronator drift. Cerebellar exam intact. Medical Decision & Procedures Medications Administered Medications (Trade) Dose Ordered Sig/Angela Route Start Time Stop Time Status Last Admin Dose Admin Morphine Sulfate (MoRPHine SULFATE INJ) 6 mg NOW STAT IM 01/24/17 21:40 01/24/17 21:42 DC 01/24/17 21:52 6 MG Prochlorperazine Edisylate (Compazine Inj) 10 mg NOW STAT IM 01/24/17 21:40 01/24/17 21:42 DC 01/24/17 21:52 10 MG Ketorolac Tromethamine (Toradol Inj) 60 mg NOW STAT IM 01/24/17 21:40 01/24/17 21:42 DC 01/24/17 21:52 60 MG Diphenhydramine HCl (Benadryl Cap) 50 mg NOW ONCE PO 01/24/17 21:45 01/24/17 21:46 DC 01/24/17 21:53 50 MG ED Course Prior records/ancillary studies reviewed. Additional history obtained from friend. Triage Nursing notes reviewed. The patient's history was concerning for headache. Differential diagnosis: Etiologies such as migraine headache, meningitis, sinusitis, CO exposure, ICH, SAH, infection, tumor, headache, sinus thrombosis, arterial dissection, as well as others were entertained. Physical examination findings: As above. Non-focal. ER treatment provided: Morphine, Toradol, Benadryl, Compazine On reassessment the patient felt better. Diagnostics interpreted by me: Imaging studies: Prior imaging reviewed This appears to be consistent with migraine. Patient is well-known to this ER for frequent migraine visits. Symptoms are similar. Headache was slow in onset. She was neurovascularly and neurologically intact. She is advised to follow-up with her neurologist in a few days or here in the ER sooner for headache, fevers, neck stiffness, worsening signs or symptoms or as needed. Patient no signs of meningitis. She is well-appearing. By the evaluation outlined above emergent etiologies such as meningitis, sinusitis, CO exposure, ICH, SAH, infection, temporal arteritis, tumor, sinus thrombosis, arterial dissection, as well as others were deemed relatively unlikely. The pt informed about the findings as listed above. All questions were answered and pleased with the treatment. Return instructions were outlined and the patient was discharged in stable condition. Referral: The patient was referred back to their primary care physician or neurology for follow-up in 2 to 3 days for a recheck of the current condition. Medical Decision As above Impression Primary Impression: Migraine Departure Information Dispostion Home / Self-Care Condition GOOD Referrals Leon Ross D.O. (PCP) Forms HOME CARE DOCUMENTATION FORM, IMPORTANT VISIT INFORMATION Patient Instructions My [facility] Additional Instructions DO NOT drive, drink alcohol, operate machinery, or perform dangerous activities today. You were given medications in the ER that can affect your ability to safely function or operate a vehicle. Rest today in a quiet, peaceful, dark environment and get a full 8-10 hrs of sleep tonight. Avoid loud noises, smoke/smoking, alcohol, bright lights, stress, or physical exertion today to minimize the chance the headache may return. Continue current medications. Acetaminophen(Tylenol) may be used for fever or pain. Use 1000mg every six hours as needed. Avoid using more than 3000mg in a 24 hour period. Return to the ER for passing out, worsening headache, vision problems, neck stiffness/pain, fevers, vomiting, worsening of your condition, or as needed. Follow up with your primary physician and/or a neurologist in 2-3 days for a recheck of your current condition. Problem Qualifiers Primary Impression: Migraine Migraine type: without aura Status migrainosus presence: without status migrainosus Intractability: not intractable Qualified Codes: G43.009 - Migraine without aura, not intractable, without status migrainosus
== END 2017-01-24 22:18 | disposition home or self-care (01) ==
LOC: C.EDB 21:07 → C.EDD 22:18
DX: G43.009 Migraine without aura, not intractable, without status migrainosus (principal); F90.9 Attention-deficit hyperactivity disorder, unspecified type; I10 Essential (primary) hypertension; F31.9 Bipolar disorder, unspecified; E66.9 Obesity, unspecified; Z68.42 Body mass index [BMI] 45.0-49.9, adult; E11.9 Type 2 diabetes mellitus without complications; E88.81 Metabolic syndrome and other insulin resistance; K21.9 Gastro-esophageal reflux disease without esophagitis; F43.10 Post-traumatic stress disorder, unspecified; Z87.440 Personal history of urinary (tract) infections; Z83.3 Family history of diabetes mellitus; Z82.49 Family history of ischemic heart disease and other diseases of the circulatory system; Z84.1 Family history of disorders of kidney and ureter; F17.210 Nicotine dependence, cigarettes, uncomplicated; Z79.899 Other long term (current) drug therapy

== ENCOUNTER 2017-02-22 23:17 | Emergency (ER) | payer OTHER ==
[~2017-02-22] VITALS: Ht 180.3 cm; Wt 151.1 kg
[2017-02-22 23:18] VITALS: TEMP 36.6; Ht 180.3 cm; Wt 151.1 kg
--- NOTE | 2017-02-22 23:50 | EMERGENCY ROOM VISIT NOTE ---
History Report prepared by Apurva: Rebecca Llanos Under the Supervision of: Dr. Nato Wharton M.D. First contact with patient: 23:26 Chief Complaint: EDEMA TO EXTREMITY Stated Complaint: SEVERE SWELLING IN FEET & LEGS UNBEARABLE PAIN History of Present Illness The patient is a 32 year old female who presents to the Emergency Room with complaints of severe and persistent bilateral lower extremity pain and swelling starting 2 days ago. She has applied ice without relief. The patient traveled back from [facility] today after spending a week there. She [place] majority [place]. She reports it was 105 degrees Fahrenheit weather [place]. She denies any recent tick bites. She had multiple insect bites but denies anyone else on the trip having similar symptoms as the patient. She did not overconsume alcohol. She denies fevers, chills, or any other complaints. Source of History: patient Onset: 2 days ago Position: other (bilateral lower extremities) Symptom Intensity: severe Timing: other (persistent) Modifying Factors (Relieving): ice (without relief) Associated Symptoms: No fevers, No chills Review of Systems See HPI for pertinent positives & negatives. A total of 10 systems reviewed and were otherwise negative. Past Medical & Surgical Medical Problems: (1) Abdominal pain (2) Abnormal uterine bleeding (3) Abnormal uterine bleeding (4) Abnormal uterine bleeding (5) Abnormal vaginal bleeding (6) Attention deficit hyperactivity disorder (7) Back pain (8) Back pain (9) Back pain (10) Benign hypertension (11) Bipolar disorder (12) Body mass index 30+ - obesity (13) Cannabis abuse (14) Depression (15) Diabetes mellitus type 2 (16) Dysmenorrhea (17) Dysmenorrhea (18) dyspnea metabolic syndrome X (19) Gastroesophageal reflux disease (20) Headache (21) Hyperglycemia (22) Lower abdominal pain (23) Lower abdominal pain (24) Migraine (25) Migraine (26) Migraine (27) Pain, dental (28) PCOS (polycystic ovarian syndrome) (29) Polycystic ovaries (30) Posttraumatic stress disorder (31) Suicide by self-administered drug (32) Upper respiratory infection (33) Urinary tract infection (34) UTI (lower urinary tract infection) (35) UTI (lower urinary tract infection) Family History Diabetes mellitus FH: cancer FH: heart disease FH: lung disease FHx: gallbladder disease Hypertension Kidney disease Kidney stones Social History Smoking Status: Current Every Day Smoker Alcohol Use: none Drug Use: none Marital Status: single Housing Status: lives with family Occupation Status: employed Current/Historical Medications Scheduled Albuterol Hfa (Ventolin Hfa), 3 PUFFS INH Q6H Bupropion Hcl (Bupropion Hcl Er), 150 MG PO DAILY Furosemide (Lasix), 1 TAB PO DAILY Metformin Hcl (Glucophage), 500 MG PO BIDM Methylphenidate (Ritalin), 10 MG PO BID Multiple Vitamins W/ Minerals (Biotin Plus/Calcium/Vit D), 1 TAB PO TID Topiramate (Topamax), 100 MG PO HS Topiramate (Topamax ), 25 MG PO QAM Scheduled PRN Lorazepam (Ativan), 1 MG PO DAILY PRN for Anxiety/Agitation Omeprazole (Prilosec), 20 MG PO TID PRN for Acid Reflux Ondasetron Odt (Zofran Odt), 4 MG SL Q6H PRN for Nausea Allergies Coded Allergies: Kiwi (Verified Allergy, Intermediate, TONGUE SWELLS, 02/22/17) Adhesives (Verified Allergy, Unknown, BLISTERS, 02/22/17) Macias Pepper (Verified Allergy, Unknown, IRRITATES THROAT, 02/22/17) GREEN PEPPERS Sumatriptan (Verified Allergy, Unknown, neck pain, 02/22/17) Ibuprofen (Verified Adverse Reaction, Severe, GI BLEED, 02/22/17) Physical Exam Vital Signs Date Time Temp Pulse Resp B/P (MAP) Pulse Ox O2 Delivery O2 Flow Rate FiO2 02/23/17 01:52 84 18 130/94 96 02/23/17 00:48 79 18 109/73 97 Room Air 02/22/17 23:18 36.6 98 28 151/87 93 Room Air Physical Exam GENERAL: Patient is well appearing and in minimal distress. HEENT: No acute trauma, normocephalic atraumatic, mucous membranes moist, no nasal congestion, no scleral icterus. NECK: No stridor, no adenopathy, no meningismus, trachea is midline. LUNGS: No dyspnea. Clear to auscultation and equal bilaterally. No wheeze, no rhonchi. HEART: Regular rate and rhythm. No murmurs, rubs, gallops appreciated. ABDOMEN: Soft, nontender, bowel sounds positive, no masses appreciated, no peritonitis. BACK: No midline tenderness, no CVA tenderness EXTREMITIES: Normal motion all extremities, no cyanosis. Nonpitting, dependent edema bilateral legs. No erythema. No calf tenderness to palpation. Pulses are intact. NEUROLOGIC: Alert and oriented, no acute motor or sensory deficits, no focal weakness, cranial nerves grossly intact. SKIN: No rash, no jaundice, no diaphoresis. Medical Decision & Procedures ER Provider Diagnostic Interpretation: US results as stated below per interpretation by me and the radiologist: US VENOUS BILATERAL LOWER EXTREMITIES Limited visualization of bilateral calf veins. No evidence of deep vein thrombosis in bilateral lower extremities. Radiologist: Liu Grullon MD Laboratory Results 02/23/17 00:08 Red Blood Count 4.60, Mean Corpuscular Volume 91.1, Mean Corpuscular Hemoglobin 30.7, Mean Corpuscular Hemoglobin Concent 33.7, Mean Platelet Volume 9.6, Neutrophils (%) (Auto) 52.3, Lymphocytes (%) (Auto) 39.0, Monocytes (%) (Auto) 6.9, Eosinophils (%) (Auto) 1.3, Basophils (%) (Auto) 0.3, Neutrophils # (Auto) 4.50, Lymphocytes # (Auto) 3.35, Monocytes # (Auto) 0.59, Eosinophils # (Auto) 0.11, Basophils # (Auto) 0.03 02/23/17 00:08 Test 02/23/17 00:08 White Blood Count 8.60 K/uL (4.8-10.8) Red Blood Count 4.60 M/uL (4.2-5.4) Hemoglobin 14.1 g/dL (12.0-16.0) Hematocrit 41.9 % (37-47) Mean Corpuscular Volume 91.1 fL (80-100) Mean Corpuscular Hemoglobin 30.7 pg (25-34) Mean Corpuscular Hemoglobin Concent 33.7 g/dl (32-36) Platelet Count 276 K/uL (130-400) Mean Platelet Volume 9.6 fL (7.4-10.4) Neutrophils (%) (Auto) 52.3 % Lymphocytes (%) (Auto) 39.0 % Monocytes (%) (Auto) 6.9 % Eosinophils (%) (Auto) 1.3 % Basophils (%) (Auto) 0.3 % Neutrophils # (Auto) 4.50 K/uL (1.4-6.5) Lymphocytes # (Auto) 3.35 K/uL (1.2-3.4) Monocytes # (Auto) 0.59 K/uL (0.11-0.59) Eosinophils # (Auto) 0.11 K/uL (0-0.5) Basophils # (Auto) 0.03 K/uL (0-0.2) RDW Standard Deviation 43.9 fL (36.4-46.3) RDW Coefficient of Variation 13.2 % (11.5-14.5) Immature Granulocyte % (Auto) 0.2 % Immature Granulocyte # (Auto) 0.02 K/uL (0.00-0.02) Anion Gap 2.0 mmol/L (3-11) Est Creatinine Clear Calc Drug Dose 165.0 ml/min Estimated GFR () 113.0 Estimated GFR (Non- 97.5 BUN/Creatinine Ratio 9.3 (10-20) Calcium Level 8.6 mg/dl (8.5-10.1) Total Bilirubin 0.3 mg/dl (0.2-1) Aspartate Amino Transf (AST/SGOT) 22 U/L (15-37) Alanine Aminotransferase (ALT/SGPT) 50 U/L (12-78) Alkaline Phosphatase 91 U/L (45-117) Total Creatine Kinase 39 U/L (26-192) Total Protein 6.6 gm/dl (6.4-8.2) Albumin 3.1 gm/dl (3.4-5.0) Globulin 3.5 gm/dl (2.5-4.0) Albumin/Globulin Ratio 0.9 (0.9-2) Thyroid Stimulating Hormone (TSH) 1.890 uIu/ml (0.300-4.500) Lyme Disease IgG Antibody NEG (NEG) Lyme Disease IgM Antibody NEG (NEG) Laboratory results as reviewed by me. Medications Administered Medications (Trade) Dose Ordered Sig/Angela Route Start Time Stop Time Status Last Admin Dose Admin Furosemide (Lasix Tab) 20 mg NOW STAT PO 02/23/17 01:31 02/23/17 01:32 DC 02/23/17 01:47 20 MG ED Course 2326: The patient was evaluated in room B03B. A complete history and physical exam was performed. 0131: Lasix Tab 20 mg PO 0135: Reevaluated the patient. Discussed results and discharge instructions: She verbalized understanding and agreement. The patient is ready for discharge. Medical Decision Differential: DVT, CHF, Arterial Occlusion, Infectious, Joint Effusion, Trauma, Lymphedema, Idiopathic, Trauma, amongst other pathologies entertained. 32 yr old female arrives for evaluation of bilateral lower leg swelling and discomfort. Started post long drive then being in heat and camping for a week. Exam consistent with dependent edema. No CHF findings by exam. No evidence of infection by exam nor labs. Renal function intact. US bilateral negative for DVT. No effusions noted. No recent trauma. I suspect this is secondary to multifactorial dependent edema and is not in need of emergent admission nor IV lasix. Will give short course of lasix with instructions, though stressed most importantly need to keep legs elevated when possible. Advised she eat banana daily for next 5 days while on lasix. Medication Reconcilliation Current Medication List: was personally reviewed by me Blood Pressure Screening Patient's blood pressure: Elevated blood pressure Blood pressure disposition: Referred to PCP Impression Primary Impression: Bilateral edema of lower extremity Scribe Attestation The scribe's documentation has been prepared under my direction and personally reviewed by me in its entirety. I confirm that the note above accurately reflects all work, treatment, procedures, and medical decision making performed by me. Departure Information Dispostion Home / Self-Care Prescriptions Furosemide (LASIX) 20 Mg Tab 1 TAB PO DAILY for 5 Days, #5 TAB 1 Refill Prov: Nato Wharton M.D. 02/23/17 Referrals Leon Ross D.O. (PCP) Forms HOME CARE DOCUMENTATION FORM, IMPORTANT VISIT INFORMATION, WORK / SCHOOL INSTRUCTIONS Patient Instructions ED Leg Swelling Bilateral, My [facility] Additional Instructions Please follow up with your primary care provider for further evaluation. Make sure to increase your intake of foods with Potassium over then next few days, such as eating a banana once daily.
[2017-02-23 00:16] LABS: BASO % 0.3 %; BASO ABS # 0.03 K/uL (0-0.2); COMPLETE YES; EOS % 1.3 %; HEMATOCRIT 41.9 % (37-47); IG% 0.2 %; LYMPH ABS # 3.35 K/uL (1.2-3.4); MEAN CELL VOLUME 91.1 fL (80-100); MEAN CORPUSCULAR HEMOGLOBIN 30.7 pg (25-34); MEAN CORPUSCULAR HGB CONC 33.7 g/dl (32-36); MEAN PLATELET VOLUME 9.6 fL (7.4-10.4); MONO % 6.9 %; NEUT % 52.3 %; PLATELET COUNT 276 K/uL (130-400)
[2017-02-23 00:59] LABS: BUN/CREATININE RATIO 9.3 (10-20); CALCIUM 8.6 mg/dl (8.5-10.1); CREATININE 0.81 mg/dl (0.60-1.20); POTASSIUM 3.6 mmol/L (3.5-5.1)
[2017-02-23 01:09] LABS: ALB/GLOB RATIO 0.9 (0.9-2); THYROID STIMULATING HORMONE 1.89 uIu/ml (0.300-4.500)
[2017-02-23 01:12] LABS: LYME DISEASE AB IGG NEG (NEG); LYME DISEASE AB IGM NEG (NEG)
[2017-02-23] MEDS ORDERED: FUROSEMIDE 40 MG TAB PO STA (01:31)
[2017-02-23] MEDS ORDERED: FURO20TA PO (01:32)
[2017-02-23 01:52] VITALS: BP 130/94; PULSE 84; O2SAT 96
--- NOTE | 2017-02-23 08:14 | DIAGNOSTIC IMAGING REPORT ---
BILATERAL LOWER EXTREMITY VENOUS DOPPLER CLINICAL HISTORY: Bilateral lower extremity swelling s/p travel COMPARISON STUDY: Bilateral lower extremity venous Doppler February 05, 2016. TECHNIQUE: Sonography of the deep venous system of the bilateral lower extremities was performed. Compression and augmentation were evaluated. FINDINGS: The common femoral, superficial femoral and popliteal veins were compressible. Augmentation was normal. Flow was shown within the deep calf vessels although the calf vessels were suboptimally assessed on this exam. IMPRESSION: No evidence of deep venous thrombus within the bilateral lower extremities. Electronically signed by: Les Toro M.D. 02/23/2017 8:12 AM Dictated Date/Time: 02/23/2017 8:12 AM
== END 2017-02-23 01:52 | disposition home or self-care (01) ==
LOC: C.EDB 23:19
DX: R60.0 Localized edema (principal); I10 Essential (primary) hypertension; E11.9 Type 2 diabetes mellitus without complications; F31.9 Bipolar disorder, unspecified; K21.9 Gastro-esophageal reflux disease without esophagitis; E28.2 Polycystic ovarian syndrome; F32.9 Major depressive disorder, single episode, unspecified; F90.9 Attention-deficit hyperactivity disorder, unspecified type; F17.200 Nicotine dependence, unspecified, uncomplicated; Z86.19 Personal history of other infectious and parasitic diseases; Z87.440 Personal history of urinary (tract) infections; Z79.84 Long term (current) use of oral hypoglycemic drugs; Z79.899 Other long term (current) drug therapy; Z88.6 Allergy status to analgesic agent; Z88.8 Allergy status to other drugs, medicaments and biological substances; Z91.018 Allergy to other foods; Z91.09 Other allergy status, other than to drugs and biological substances; Z83.3 Family history of diabetes mellitus; Z80.9 Family history of malignant neoplasm, unspecified; Z82.49 Family history of ischemic heart disease and other diseases of the circulatory system; Z83.79 Family history of other diseases of the digestive system; Z84.1 Family history of disorders of kidney and ureter

== ENCOUNTER 2017-03-13 00:01 | Emergency (ER) | payer OTHER ==
[~2017-03-13] VITALS: Ht 180.3 cm; Wt 147.9 kg
[~2017-03-13 00:01] MED LIST changes: +FURO20TA PO
[2017-03-13 00:07] VITALS: TEMP 36.6; Ht 180.3 cm; Wt 147.9 kg
[2017-03-13] MEDS ORDERED: MoRPHine SULFATE 10 MG/ML CARP/VIAL IV STA (00:17)
[2017-03-13] MEDS ORDERED: ONDANSETRON INJ 2 MG/ML 2 ML VIAL IV STA (00:17)
[2017-03-13] MEDS ORDERED: MoRPHine SULFATE 4 MG/ML 1 ML CARP\\VIAL ONE (00:26)
[2017-03-13 00:30] LABS: HEMATOCRIT 43.9 % (37-47); MEAN CELL VOLUME 89.8 fL (80-100); MEAN CORPUSCULAR HEMOGLOBIN 32.5 pg (25-34); MEAN CORPUSCULAR HGB CONC 36.2 g/dl (32-36); MEAN PLATELET VOLUME 9.6 fL (7.4-10.4); PLATELET COUNT 308 K/uL (130-400); RED BLOOD COUNT 4.89 M/uL (4.2-5.4); WHITE BLOOD COUNT 12.33 K/uL (4.8-10.8)
[2017-03-13] MEDS ORDERED: SODIUM CHLORIDE 0.9% 1000ML 1,000 ML IV ONE (00:30)
[2017-03-13 00:48] LABS: BUN/CREATININE RATIO 12.3 (10-20); CALCIUM 9.4 mg/dl (8.5-10.1); CREATININE 0.89 mg/dl (0.60-1.20); POTASSIUM 4.1 mmol/L (3.5-5.1)
[2017-03-13 01:04] LABS: BASO % 0.2 %; BASO ABS # 0.03 K/uL (0-0.2); COMPLETE YES; EOS % 1.5 %; IG% 0.5 %; LYMPH % 30.8 %; MONO % 6.6 %; NEUT % 60.4 %
[2017-03-13] MEDS ORDERED: DiphenhydrAMINE HCL 50 MG/ML VIAL IV STA (01:26)
[2017-03-13] MEDS ORDERED: KETOROLAC TROMETHAMINE 30 MG/ML VIAL IV STA (01:26)
[2017-03-13] MEDS ORDERED: ACET-1256 PO (02:03)
[2017-03-13] MEDS ORDERED: ASPI-391 PO (02:03)
[2017-03-13 02:59] VITALS: BP 164/78; PULSE 90; O2SAT 98
--- NOTE | 2017-03-13 06:12 | EMERGENCY ROOM VISIT NOTE ---
History First contact with patient: 00:12 Chief Complaint: HEADACHE Stated Complaint: MIGRAINE,NAUSEA History of Present Illness The patient is a 32 year old female who presents to the Emergency Room with complaints of severe migraine headache and nausea with vomiting that began earlier today. The patient has a history of chronic migraines, and states this is "the worst I have had in 2 years". The patient is well-known to this facility for frequency of visits, and she is regularly seen for migraine headaches. The patient has not had fever or chills. She does not report chest pain, chest tightness, or shortness of breath. The patient denies chance of and has not taken anything [id number] because of her nausea and vomiting. She does follow with neurology, and states that she has an appointment next month. She rates her discomfort a 10/10. Review of Systems More than 10 systems were reviewed and otherwise negative with the exception of history of present illness. Past Medical/Surgical History Medical Problems: (1) Abdominal pain (2) Abnormal uterine bleeding (3) Abnormal uterine bleeding (4) Abnormal uterine bleeding (5) Abnormal vaginal bleeding (6) Attention deficit hyperactivity disorder (7) Back pain (8) Back pain (9) Back pain (10) Benign hypertension (11) Bipolar disorder (12) Body mass index 30+ - obesity (13) Cannabis abuse (14) Depression (15) Diabetes mellitus type 2 (16) Dysmenorrhea (17) Dysmenorrhea (18) dyspnea metabolic syndrome X (19) Gastroesophageal reflux disease (20) Headache (21) Hyperglycemia (22) Lower abdominal pain (23) Lower abdominal pain (24) Migraine (25) Migraine (26) Migraine (27) Pain, dental (28) PCOS (polycystic ovarian syndrome) (29) Polycystic ovaries (30) Posttraumatic stress disorder (31) Suicide by self-administered drug (32) Upper respiratory infection (33) Urinary tract infection (34) UTI (lower urinary tract infection) (35) UTI (lower urinary tract infection) Family History Diabetes mellitus FH: cancer FH: heart disease FH: lung disease FHx: gallbladder disease Hypertension Kidney disease Kidney stones Social History Smoking Status: Current Every Day Smoker Alcohol Use: none Drug Use: none Marital Status: single Housing Status: lives with family Occupation Status: employed Current/Historical Medications Scheduled Albuterol Hfa (Ventolin Hfa), 3 PUFFS INH Q6H Bupropion Hcl (Bupropion Hcl Er), 150 MG PO DAILY Furosemide (Lasix), 1 TAB PO DAILY Metformin Hcl (Glucophage), 500 MG PO BIDM Methylphenidate (Ritalin), 10 MG PO BID Multiple Vitamins W/ Minerals (Biotin Plus/Calcium/Vit D), 1 TAB PO TID Topiramate (Topamax), 100 MG PO HS Topiramate (Topamax ), 25 MG PO QAM Scheduled PRN Acetaminophen (Tylenol), 1,000 MG PO Q4 PRN for Pain Szzmpcx-Qgjehpfrksier-Tlblwzxy (Excedrin Extra Strength), 1 DOSE PO UD PRN for Pain Lorazepam (Ativan), 1 MG PO DAILY PRN for Anxiety/Agitation Omeprazole (Prilosec), 20 MG PO TID PRN for Acid Reflux Ondasetron Odt (Zofran Odt), 4 MG SL Q6H PRN for Nausea Physical Exam Vital Signs Date Time Temp Pulse Resp B/P (MAP) Pulse Ox O2 Delivery O2 Flow Rate FiO2 03/13/17 02:59 90 20 164/78 98 03/13/17 01:37 82 18 161/94 96 Room Air 03/13/17 00:07 36.6 114 22 138/96 97 Room Air Pain Rating (0-10): 2.0 Physical Exam VITALS: Vitals are noted on the nurse's note and reviewed by myself. Vital signs stable. GENERAL: Well-developed, well-nourished, white female who appears in moderate his comfort secondary to her stated complaint. She is with active vomiting upon my arrival to the room. HEAD: Normocephalic atraumatic. EARS: External ear normal. External auditory canals clear, tympanic membranes pearly bashir without erythema or effusion bilaterally. EYES: Pupils equal round and reactive to light and accommodation. Conjunctivae without injection, sclerae without icterus. Extraocular movements intact. NOSE: Patent, turbinates without inflammation or discharge. MOUTH: Mucous membranes moist. Tonsils are not enlarged. Pharynx without erythema, blood, or exudate. Uvula midline. Airway patent. NECK: Supple without nuchal rigidity. No lymphadenopathy. No thyromegaly. Cervical spine is nontender. No meningismus HEART: Regular rate and rhythm without murmurs gallops or rubs. LUNGS: Clear to auscultation bilaterally without wheezes, rales or rhonchi. No retractions or accessory muscle use. ABDOMEN: Positive normal bowel sounds x 4. Soft, nontender, without masses or organomegaly. No guarding or rebound tenderness. NEURO: Patient was alert and oriented to person place and time. CN II through XII grossly intact. Medical Decision & Procedures ER Provider Diagnostic Interpretation: Preliminary Findings Only See Final Report For Complete Findings ADDENDUM - Added by Karlos Ramirez M.D. on 03/13/2017 2:32 AM (-07:00) No acute intracranial abnormality identified. Tiny polyp versus mucous retention cyst in the right maxillary sinus. CT HEAD: Comparison: None Laboratory Results 03/13/17 00:20 Red Blood Count 4.89, Mean Corpuscular Volume 89.8, Mean Corpuscular Hemoglobin 32.5, Mean Corpuscular Hemoglobin Concent 36.2, Mean Platelet Volume 9.6, Neutrophils (%) (Auto) 60.4, Lymphocytes (%) (Auto) 30.8, Monocytes (%) (Auto) 6.6, Eosinophils (%) (Auto) 1.5, Basophils (%) (Auto) 0.2, Neutrophils # (Auto) 7.45, Lymphocytes # (Auto) 3.80, Monocytes # (Auto) 0.81, Eosinophils # (Auto) 0.18, Basophils # (Auto) 0.03 03/13/17 00:20 Test 03/13/17 00:20 White Blood Count 12.33 K/uL (4.8-10.8) Red Blood Count 4.89 M/uL (4.2-5.4) Hemoglobin 15.9 g/dL (12.0-16.0) Hematocrit 43.9 % (37-47) Mean Corpuscular Volume 89.8 fL (80-100) Mean Corpuscular Hemoglobin 32.5 pg (25-34) Mean Corpuscular Hemoglobin Concent 36.2 g/dl (32-36) Platelet Count 308 K/uL (130-400) Mean Platelet Volume 9.6 fL (7.4-10.4) Neutrophils (%) (Auto) 60.4 % Lymphocytes (%) (Auto) 30.8 % Monocytes (%) (Auto) 6.6 % Eosinophils (%) (Auto) 1.5 % Basophils (%) (Auto) 0.2 % Neutrophils # (Auto) 7.45 K/uL (1.4-6.5) Lymphocytes # (Auto) 3.80 K/uL (1.2-3.4) Monocytes # (Auto) 0.81 K/uL (0.11-0.59) Eosinophils # (Auto) 0.18 K/uL (0-0.5) Basophils # (Auto) 0.03 K/uL (0-0.2) RDW Standard Deviation 41.4 fL (36.4-46.3) RDW Coefficient of Variation 12.7 % (11.5-14.5) Immature Granulocyte % (Auto) 0.5 % Immature Granulocyte # (Auto) 0.06 K/uL (0.00-0.02) Red Blood Cell Morphology Unremarkable Anion Gap 7.0 mmol/L (3-11) Est Creatinine Clear Calc Drug Dose 148.3 ml/min Estimated GFR () 100.8 Estimated GFR (Non- 87.0 BUN/Creatinine Ratio 12.3 (10-20) Calcium Level 9.4 mg/dl (8.5-10.1) Medications Administered Medications (Trade) Dose Ordered Sig/Angela Route Start Time Stop Time Status Last Admin Dose Admin Sodium Chloride 1,000 ml @ 999 mls/hr Q1H1M ONCE IV 03/13/17 00:30 03/13/17 01:30 DC 03/13/17 00:30 999 MLS/HR Ondansetron HCl (Zofran Inj) 4 mg NOW STAT IV 03/13/17 00:17 03/13/17 00:20 DC 03/13/17 00:30 4 MG Morphine Sulfate (MoRPHine SULFATE INJ) 8 mg STK-MED ONCE .ROUTE 03/13/17 00:26 03/13/17 00:27 DC 03/13/17 00:30 8 MG Diphenhydramine HCl (Benadryl Inj) 25 mg NOW STAT IV 03/13/17 01:26 03/13/17 01:28 DC 03/13/17 01:33 25 MG Ketorolac Tromethamine (Toradol Inj) 30 mg NOW STAT IV 03/13/17 01:26 03/13/17 01:28 DC 03/13/17 01:33 30 MG ED Course Physical exam and history were performed. Nursing notes, EMR, and Medication List were personally reviewed. Patient appears to have a migraine headache for the past one day. The patient is well-known to myself, and she does appear in much more discomfort than her normal visits. She is actively vomiting upon my presentation to the room. She states this is the worst headache she has had in the past 2 years. IV access was established and labs were obtained. The patient was hydrated and medicated as above. CT scan was performed. The patient's blood work is as above and was reviewed. She does have a slightly elevated white blood cell count of 12,000, however this is felt to be from her vomiting. She does not have a significant anemia or gross electrolyte imbalance. Her remaining labs are nondiagnostic. CT scan of the head does not show acute findings. On reevaluation the patient was resting very comfortably in her emergency department bed. She did not have any recurrence of her symptoms. On repeat exam she continues without signs of meningitis or encephalitis. Clinically I suspect this is related to a normal migraine for her, and she will need to follow with neurology for further care and management. She was given discharge instructions as below and otherwise invited back to the ER with any new, worsening, or concerning symptoms. The chart was completed utilizing [employer] Speech Voice Recognition Software. Grammatical errors, random word insertions, pronoun errors, and incomplete sentences are an occasional consequence of this system due to software limitations, ambient noise, and hardware issues. Any formal questions or concerns about the content, text, or information contained within the body of this dictation should be directly addressed to the provider for clarification. . Medical Decision The differential diagnosis includes, but is not limited to: acute intracranial bleed, meningitis, encephalitis, mass or mass effect, sinusitis, infection, tumor, headache, temporal arteritis and carbon monoxide exposure, and migraine. Impression Primary Impression: Migraine Departure Information Dispostion Home / Self-Care Condition GOOD Referrals Leon Ross D.O. (PCP) Forms HOME CARE DOCUMENTATION FORM, IMPORTANT VISIT INFORMATION Patient Instructions My [facility] Additional Instructions You were seen and evaluated today on an emergency basis only. This is not a substitute for, or an effort to provide, complete comprehensive medical care. It is not possible to recognize and treat all injuries or illnesses in a single emergency department visit. For this reason it is recommended that you followup with your primary care physician or neurologist this week for ongoing care and evaluation. DO NOT drive, drink alcohol, operate machinery, or perform dangerous activities today. You were given medications in the ER that can affect your ability to safely function or operate a vehicle. Rest today in a quiet, peaceful, dark environment and get a full 8-10 hrs of sleep tonight. Avoid loud noises, smoke/smoking, alcohol, bright lights, stress, or physical exertion today to minimize the chance the headache may return. Continue current medications. Ibuprofen(Motrin, Advil) may be used for fever or pain. Use 600mg every six hours as needed. Take with food. Avoid using more than 2400mg in a 24 hour period. Do not use 2400mg per day for more than three consecutive days without physician direction. Prolonged inappropriate use can lead to stomach upset or ulcers. (AND/OR) Acetaminophen(Tylenol) may be used for fever or pain. Use 1000mg every six hours as needed. Avoid using more than 4000mg in a 24 hour period. Return to the ER for passing out, worsening headache, vision problems, neck stiffness/pain, fevers, vomiting, worsening of your condition, or as needed.
--- NOTE | 2017-03-13 06:49 | DIAGNOSTIC IMAGING REPORT ---
HEAD WITHOUT CONTRAST (CT) CT DOSE: 537.48 mGy.cm HISTORY: Mental status change Headache TECHNIQUE: Multiaxial CT images of the head were performed without the use of intravenous contrast. A dose lowering technique was utilized adhering to the principles of ALARA. Comparison: 03/11/2015 Findings: The paranasal sinuses and mastoid air cells are clear. The calvarium and skull base are intact. The ventricles and sulci are within normal limits. There is no mass, hematoma, midline shift, or acute infarct. Impression: No acute intracranial abnormality. The above report was generated using voice recognition software. It may contain grammatical, syntax or spelling errors. Electronically signed by: Sonido Monteiro M.D. 03/13/2017 6:47 AM Dictated Date/Time: 03/13/2017 6:46 AM
== END 2017-03-13 03:01 | disposition home or self-care (01) ==
LOC: C.EDB 00:01 → C.EDA 03:01
DX: G43.909 Migraine, unspecified, not intractable, without status migrainosus (principal); F90.9 Attention-deficit hyperactivity disorder, unspecified type; I10 Essential (primary) hypertension; F31.9 Bipolar disorder, unspecified; E66.9 Obesity, unspecified; F12.90 Cannabis use, unspecified, uncomplicated; F32.9 Major depressive disorder, single episode, unspecified; E11.9 Type 2 diabetes mellitus without complications; K21.9 Gastro-esophageal reflux disease without esophagitis; R73.9 Hyperglycemia, unspecified; E28.2 Polycystic ovarian syndrome; F43.10 Post-traumatic stress disorder, unspecified; Z83.3 Family history of diabetes mellitus; Z82.49 Family history of ischemic heart disease and other diseases of the circulatory system; F17.200 Nicotine dependence, unspecified, uncomplicated

== ENCOUNTER 2017-04-04 22:08 | Emergency (ER) | payer OTHER ==
[~2017-04-04] VITALS: Ht 180.3 cm; Wt 144.8 kg
[~2017-04-04 22:08] MED LIST changes: +ACET-1256 PO; +ASPI-391 PO
[2017-04-04 22:14] VITALS: TEMP 36.9; Ht 180.3 cm; Wt 144.8 kg
[2017-04-04] MEDS ORDERED: SODIUM CHLORIDE 0.9% 1000ML 1,000 ML IV STA ×2 (22:24)
[2017-04-04] MEDS ORDERED: DiphenhydrAMINE HCL 50 MG/ML VIAL IV STA (22:24)
[2017-04-04] MEDS ORDERED: METOCLOPRAMIDE HCL INJ 5 MG/ML 2 ML VIAL IV STA (22:24)
[2017-04-04] MEDS ORDERED: KETOROLAC TROMETHAMINE 30 MG/ML VIAL IV STA (22:24)
[2017-04-04] MEDS ORDERED: SNQ/25 PO (22:52)
[2017-04-04] MEDS ORDERED: ERGO500037 PO (22:52)
[2017-04-04 23:39] LABS: URINE APPEARANCE CLEAR (CLEAR); URINE BILIRUBIN NEG (NEG); URINE COLOR YELLOW; URINE EPITHELIAL CELL AUTO >30 /lpf (0-5); URINE NITRITE NEG (NEG); UROBILINOGEN NEG (NEG); ZZUR CULT IF INDIC CLEAN CATCH NO
[2017-04-04 23:59] LABS: BUN/CREATININE RATIO 9.2 (10-20); CALCIUM 9.2 mg/dl (8.5-10.1); CREATININE 0.83 mg/dl (0.60-1.20)
[2017-04-04 23:59] LABS: MANUAL MICROSCOPIC REQUIRED? NO; REVIEW REQ? NO
[2017-04-05 00:02] LABS: PREG INTERNAL NEGATIVE QC NEG CLEAR BACKGROUND; PREG INTERNAL POSITIVE QC POS CONTROL LINE
[2017-04-05 00:05] LABS: POTASSIUM 3.7 mmol/L (3.5-5.1)
[2017-04-05 01:05] LABS: HEMATOCRIT 42.5 % (37-47); MEAN CELL VOLUME 89.5 fL (80-100); MEAN CORPUSCULAR HEMOGLOBIN 31.2 pg (25-34); MEAN CORPUSCULAR HGB CONC 34.8 g/dl (32-36); MEAN PLATELET VOLUME 10.7 fL (7.4-10.4); PLATELET COUNT 294 K/uL (130-400); RED BLOOD COUNT 4.75 M/uL (4.2-5.4); WHITE BLOOD COUNT 9.51 K/uL (4.8-10.8)
[2017-04-05 01:09] LABS: BASO % 0.3 %; BASO ABS # 0.03 K/uL (0-0.2); COMPLETE YES; EOS % 1.3 %; IG% 0.3 %; LYMPH % 36.6 %; LYMPH ABS # 3.48 K/uL (1.2-3.4); MONO % 7.4 %; NEUT % 54.1 %; PLT ESTIMATE NORMAL
[2017-04-05] MEDS ORDERED: ONDANSETRON HOME PACK 4MG OD TAB PO ONE (01:15)
[2017-04-05 01:40] VITALS: BP 128/88; PULSE 80; O2SAT 98
--- NOTE | 2017-04-05 06:03 | EMERGENCY ROOM VISIT NOTE ---
History First contact with patient: 22:19 Chief Complaint: PELVIC PAIN Stated Complaint: SEVERE PELVIC/ABD PAIN History of Present Illness The patient is a 32 year old female who presents to the Emergency Room with complaints of right lower suprapubic abdominal pain for the past day that is recurrent problem for her. Pain currently 5 out of 10. Nothing makes it better or worse. It does not radiate. Patient appointment tomorrow morning with Dr. Gonzalez, her HEEL BUILDER. She has an IUD. Patient denies risk for STI's. She does not want pelvic exam or cultures. Patient denies vaginal discharge, vaginal odor, vaginal bleeding, urinary symptoms, back pain, chest pain, dyspnea , nausea, vomiting, diarrhea, fever, chills. Review of Systems See HPI for pertinent positives & negatives. A total of 10 systems reviewed and were otherwise negative. Past Medical/Surgical History Medical Problems: (1) Abdominal pain (2) Abnormal uterine bleeding (3) Abnormal uterine bleeding (4) Abnormal uterine bleeding (5) Abnormal vaginal bleeding (6) Attention deficit hyperactivity disorder (7) Back pain (8) Back pain (9) Back pain (10) Benign hypertension (11) Bipolar disorder (12) Body mass index 30+ - obesity (13) Cannabis abuse (14) Depression (15) Diabetes mellitus type 2 (16) Dysmenorrhea (17) Dysmenorrhea (18) dyspnea metabolic syndrome X (19) Gastroesophageal reflux disease (20) Headache (21) Hyperglycemia (22) Lower abdominal pain (23) Lower abdominal pain (24) Migraine (25) Migraine (26) Migraine (27) Pain, dental (28) PCOS (polycystic ovarian syndrome) (29) Polycystic ovaries (30) Posttraumatic stress disorder (31) Suicide by self-administered drug (32) Upper respiratory infection (33) Urinary tract infection (34) UTI (lower urinary tract infection) (35) UTI (lower urinary tract infection) Family History Diabetes mellitus FH: cancer FH: heart disease FH: lung disease FHx: gallbladder disease Hypertension Kidney disease Kidney stones Social History Smoking Status: Current Every Day Smoker Alcohol Use: none Drug Use: none Marital Status: single Housing Status: lives with family Occupation Status: employed Current/Historical Medications Scheduled Albuterol Hfa (Ventolin Hfa), 3 PUFFS INH Q6H Bupropion Hcl (Bupropion Hcl Er), 150 MG PO DAILY Doxepin (Sinequan), 25 MG PO HS Ergocalciferol (Vitamin D 19419 Unit), 50,000 UNIT PO WK Metformin Hcl (Glucophage), 500 MG PO BIDM Methylphenidate (Ritalin), 10 MG PO BID Multiple Vitamins W/ Minerals (Biotin Plus/Calcium/Vit D), 1 TAB PO TID Topiramate (Topamax), 100 MG PO HS Topiramate (Topamax ), 25 MG PO QAM Scheduled PRN Acetaminophen (Tylenol), 1,000 MG PO Q4 PRN for Pain Ybdtltm-Pgnqaifihomiy-Fdfytdzt (Excedrin Extra Strength), 1 DOSE PO UD PRN for Pain Lorazepam (Ativan), 1 MG PO DAILY PRN for Anxiety/Agitation Omeprazole (Prilosec), 20 MG PO TID PRN for Acid Reflux Ondasetron Odt (Zofran Odt), 4 MG SL Q6H PRN for Nausea Physical Exam Vital Signs Date Time Temp Pulse Resp B/P (MAP) Pulse Ox O2 Delivery O2 Flow Rate FiO2 04/05/17 01:40 80 16 128/88 98 04/05/17 00:03 80 16 110/69 99 Room Air 04/04/17 22:14 36.9 107 20 133/88 96 Room Air Pain Rating (0-10): 9.0 Physical Exam VITALS: Vitals are noted on the nurse's note and reviewed by myself. Vital signs stable. GENERAL: White female, in no acute distress, nondiaphoretic, well-developed well -nourished. SKIN: The skin was without rashes, erythema, edema, or bruising. There is no tenting of the skin. Capillary reflex less than 2 seconds. HEAD: Normocephalic atraumatic. EARS: External auditory canals clear, tympanic membranes pearly bashir without erythema or effusion bilaterally. EYES: Pupils equal round and reactive to light and accommodation. Conjunctivae without injection, sclerae without icterus. Extraocular movements intact. NOSE: Patent, turbinates without inflammation or discharge. MOUTH: Mucous membranes moist. Pharynx without erythema or exudate. Uvula midline. Airway patent. Tongue does not deviate. NECK: Supple without nuchal rigidity. No lymphadenopathy. No thyromegaly. Cervical spine is nontender. No JVD. HEART: Regular rate and rhythm without murmurs gallops or rubs. LUNGS: Clear to auscultation bilaterally without wheezes, rales or rhonchi. No dullness to percussion. No retractions or accessory muscle use. ABDOMEN: Positive bowel sounds x 4. Normal tympanic percussion. Soft, protuberant, obese, tender to palpation suprapubic area, no CVA tenderness, without masses or organomegaly. Posey sign negative. No guarding or rebound tenderness. MUSCULOSKELETAL: No muscle atrophy, erythema, or edema noted. NEURO: Patient was alert and oriented to person place and time. Normal sensation to light and sharp touch. No focal neurological deficits. Medical Decision & Procedures Laboratory Results 04/04/17 22:50 Red Blood Count 4.75, Mean Corpuscular Volume 89.5, Mean Corpuscular Hemoglobin 31.2, Mean Corpuscular Hemoglobin Concent 34.8, Mean Platelet Volume 10.7, Neutrophils (%) (Auto) 54.1, Lymphocytes (%) (Auto) 36.6, Monocytes (%) (Auto) 7.4, Eosinophils (%) (Auto) 1.3, Basophils (%) (Auto) 0.3, Neutrophils # (Auto) 5.15, Lymphocytes # (Auto) 3.48, Monocytes # (Auto) 0.70, Eosinophils # (Auto) 0.12, Basophils # (Auto) 0.03 04/04/17 22:50 Test 04/04/17 22:50 04/04/17 23:00 White Blood Count 9.51 K/uL (4.8-10.8) Red Blood Count 4.75 M/uL (4.2-5.4) Hemoglobin 14.8 g/dL (12.0-16.0) Hematocrit 42.5 % (37-47) Mean Corpuscular Volume 89.5 fL (80-100) Mean Corpuscular Hemoglobin 31.2 pg (25-34) Mean Corpuscular Hemoglobin Concent 34.8 g/dl (32-36) Platelet Count 294 K/uL (130-400) Mean Platelet Volume 10.7 fL (7.4-10.4) Neutrophils (%) (Auto) 54.1 % Lymphocytes (%) (Auto) 36.6 % Monocytes (%) (Auto) 7.4 % Eosinophils (%) (Auto) 1.3 % Basophils (%) (Auto) 0.3 % Neutrophils # (Auto) 5.15 K/uL (1.4-6.5) Lymphocytes # (Auto) 3.48 K/uL (1.2-3.4) Monocytes # (Auto) 0.70 K/uL (0.11-0.59) Eosinophils # (Auto) 0.12 K/uL (0-0.5) Basophils # (Auto) 0.03 K/uL (0-0.2) RDW Standard Deviation 40.8 fL (36.4-46.3) RDW Coefficient of Variation 12.5 % (11.5-14.5) Immature Granulocyte % (Auto) 0.3 % Immature Granulocyte # (Auto) 0.03 K/uL (0.00-0.02) Platelet Estimate NORMAL Anion Gap 7.0 mmol/L (3-11) Est Creatinine Clear Calc Drug Dose 157.1 ml/min Estimated GFR () 109.7 Estimated GFR (Non- 94.6 BUN/Creatinine Ratio 9.2 (10-20) Calcium Level 9.2 mg/dl (8.5-10.1) Human Chorionic Gonadotropin, Qual NEG (NEG) Urine Color YELLOW Urine Appearance CLEAR (CLEAR) Urine pH 7.0 (4.5-7.5) Urine Specific [place] 1.020 (1.000-1.030) Urine Protein NEG (NEG) Urine Glucose (UA) NEG (NEG) Urine Ketones NEG (NEG) Urine Occult Blood 2+ (NEG) Urine Nitrite NEG (NEG) Urine Bilirubin NEG (NEG) Urine Urobilinogen NEG (NEG) Urine Leukocyte Esterase TRACE (NEG) Urine WBC (Auto) 1-5 /hpf (0-5) Urine RBC (Auto) 0-4 /hpf (0-4) Urine Hyaline Casts (Auto) 1-5 /lpf (0-5) Urine Epithelial Cells (Auto) >30 /lpf (0-5) Urine Bacteria (Auto) NEG (NEG) Medications Administered Medications (Trade) Dose Ordered Sig/Angela Route Start Time Stop Time Status Last Admin Dose Admin Sodium Chloride 1,000 ml @ 999 mls/hr Q1H1M STAT IV 04/04/17 22:24 04/04/17 23:24 DC 04/04/17 23:04 999 MLS/HR Ketorolac Tromethamine (Toradol Inj) 30 mg NOW STAT IV 04/04/17 22:24 04/04/17 22:26 DC 04/04/17 23:05 30 MG Metoclopramide HCl (Reglan Inj) 10 mg NOW STAT IV 04/04/17 22:24 04/04/17 22:26 DC 04/04/17 23:06 10 MG Diphenhydramine HCl (Benadryl Inj) 12.5 mg NOW STAT IV 04/04/17 22:24 04/04/17 22:26 DC 04/04/17 23:04 12.5 MG Ondansetron HCl (ZOFRAN ODT 4MG Home Pack) 1 homepack UD ONCE PO 04/05/17 01:15 04/05/17 01:16 DC 04/05/17 01:42 1 HOMEPACK ED Course Prior records/ancillary studies reviewed. Triage Nursing notes reviewed. Additional history obtained from friend The patient's history was concerning for suprapubic abdominal pain. Differential diagnosis: Differential diagnosis includes salpingitis, , ectopic , incomplete , septic , ruptured ovarian cyst, ovarian torsion, Mittelschmerz, endometritis, dysmenorrhea, appendicitis, PID, and others. Physical examination findings: As above. ER treatment provided: Toradol, Reglan, Benadryl, IV fluids On reassessment the patient felt better. Diagnostics interpreted by me: The labs revealed no worrisome leukocytosis. Negative urine. Negative hCG Imaging studies: Ultrasound shows blood flow to both ovaries per radiology Exam and history seem consistent with recurrent superpubic pelvic pain. Unclear etiology. Patient declined pelvic. Negative ultrasound. No white count. Negative urine. She is not . This could be related to her IUD. She is advised follow-up in a few hours with her HEEL BUILDER or here in the ER sooner for abdominal pain, fevers, vomiting, worsening signs or symptoms or as needed. Patient did not have acute abdomen on exam. She is well-appearing. By the evaluation outlined above emergent etiologies such as salpingitis, , ectopic , incomplete , septic , ruptured ovarian cyst, ovarian torsion, Mittelschmerz, endometritis, dysmenorrhea, appendicitis, PID, as well as others were deemed relatively unlikely. The pt informed about the findings as listed above. All questions were answered and pleased with the treatment. Return instructions were outlined and the patient was discharged in stable condition. Outpatient prescription management: Zofran Referral: The patient was referred back to their HEEL BUILDER this morning as scheduled for a recheck of the current condition. Case reviewed with my attending Medical Decision As above Medication Reconcilliation Current Medication List: was personally reviewed by me Blood Pressure Screening Patient's blood pressure: Normal blood pressure Impression Primary Impression: Pelvic pain Departure Information Dispostion Home / Self-Care Condition FAIR Forms WORK / SCHOOL INSTRUCTIONS, HOME CARE DOCUMENTATION FORM, IMPORTANT VISIT INFORMATION Patient Instructions My [facility], ED Pelvic Pain [facility] Additional Instructions Rest. Stay well hydrated. No strenuous activity or intercourse until cleared by HEEL BUILDER. Zofran 4 tablet every 6 hours as needed for nausea and vomiting. Acetaminophen(Tylenol) may be used for fever or pain. Use 1000mg every six hours as needed. Avoid using more than 3000mg in a 24 hour period. Rest and drink plenty of fluids as tolerated. Continue current medications. Return to the ER immediately for abdominal pain, vomiting, fevers, chest pains , difficulty breathing, worsening of your condition, or as needed. Follow up with your HEEL BUILDER in 2-3 days for a recheck of your current condition.
--- NOTE | 2017-04-05 06:36 | DIAGNOSTIC IMAGING REPORT ---
PELVIC ULTRASOUND CLINICAL HISTORY: Pelvic pain. COMPARISON STUDY: Pelvic ultrasound November 24, 2016. TECHNIQUE: Transabdominal and transvaginal sonography of the pelvis was performed. FINDINGS: The uterus measures 6.8 x 4 x 4.5 cm. Intrauterine device is appropriately positioned. The endometrium measures 6 mm in thickness. The right ovary measures 4.2 x 2.5 x 2 cm and the left measures 4.1 x 2.8 x 3 cm. Evaluation of the ovaries is compromised given suboptimal penetration. Color flow is identified within each ovary. Follicles were shown within each ovary. No free fluid was identified. IMPRESSION: 1. Unremarkable pelvic ultrasound. 2. Appropriately positioned intrauterine device. Electronically signed by: Les Toro M.D. 04/05/2017 6:35 AM Dictated Date/Time: 04/05/2017 6:30 AM
== END 2017-04-05 01:45 | disposition home or self-care (01) ==
LOC: C.EDB 22:09
DX: R10.2 Pelvic and perineal pain (principal); Z97.5 Presence of (intrauterine) contraceptive device; F90.9 Attention-deficit hyperactivity disorder, unspecified type; I10 Essential (primary) hypertension; F31.9 Bipolar disorder, unspecified; K21.9 Gastro-esophageal reflux disease without esophagitis; E11.9 Type 2 diabetes mellitus without complications; E28.2 Polycystic ovarian syndrome; F43.10 Post-traumatic stress disorder, unspecified; Z87.440 Personal history of urinary (tract) infections; Z83.3 Family history of diabetes mellitus; Z80.9 Family history of malignant neoplasm, unspecified; Z82.49 Family history of ischemic heart disease and other diseases of the circulatory system; Z84.1 Family history of disorders of kidney and ureter; F17.210 Nicotine dependence, cigarettes, uncomplicated; Z79.899 Other long term (current) drug therapy

== ENCOUNTER 2017-04-23 14:11 | Emergency (ER) | payer OTHER ==
[~2017-04-23] VITALS: Ht 180.3 cm; Wt 156.0 kg
[~2017-04-23 14:11] MED LIST changes: +ERGO500037 PO; -FURO20TA PO; +SNQ/25 PO
[2017-04-23 14:15] VITALS: TEMP 36.9; Ht 180.3 cm; Wt 156.0 kg
[2017-04-23] MEDS ORDERED: KETOROLAC TROMETHAMINE 60 MG/2 ML VIAL IM STA (14:28)
--- NOTE | 2017-04-23 14:32 | EMERGENCY ROOM VISIT NOTE ---
ED Visit Note First contact with patient: 14:19 CHIEF COMPLAINT: Right ankle pain HISTORY OF PRESENT ILLNESS: This 32-year-old female patient presents to the emergency department, ambulatory, approximately 1-1/2 hours after sustaining an injury to the right ankle and foot with a twisting, inversion motion while walking. The patient states she has had pain and problems in her right foot for several weeks. She states they have been getting better. The patient states today, she was out for a walk, when she slipped and heard a pop in her right ankle. She states she immediately began experiencing pain from the lateral foot up into the ankle. The patient that she did have a previous injury to her Achilles tendon, and is concerned that she could have injured it again. The patient complains of pain along the outside of the ankle. The patient does report pain of the lateral foot. The patient rates the pain as cramping, throbbing, stabbing and 8/10 at rest, 10/10 while walking. The patient states while she is walking, the pain brings her to tears. The patient is able to bear weight on the foot. Constant pain, worse with movement, weight bearing, and the dependent position. No knee pain, the patient is able to move their toes. No numbness or weakness of the foot, no laceration. The patient has not had a previous fracture to this ankle. The patient has taken 2000 mg Tylenol for the pain without any relief. The patient denies any other injury. She states her mother was coming to the hospital anyway, so she figured she would come and be evaluated at this time. REVIEW OF SYSTEMS: A 6 system review of systems was completed with positives and pertinent negatives listed in the HPI. ALLERGIES: Adhesives, macias Pepper, Kiwi, ibuprofen, sumatriptan MEDICATIONS: Acetaminophen, Ventolin, Excedrin, bupropion, doxepin, vitamin D, lorazepam, metformin, Ritalin, multivitamin, omeprazole, Zofran, Topamax PMH: Asthma, migraines, vitamin D deficiency, anxiety, ADHD, GERD SOCIAL HISTORY: The patient lives locally with family. She denies drug or alcohol use. The patient states she quit smoking cigarettes last night. PHYSICAL EXAM: Vital Signs: Reviewed Nurse's notes, vital signs stable. GENERAL : This is an obese 32-year-old white female, no acute distress, but appears in pain, well-developed, well-nourished. MENTAL STATUS: Alert, oriented to person place and time, and cooperative. MUSCULOSKELETAL: The right ankle is very mildly swollen and tender over the lateral malleolus, but the skin is intact and there is no ligamentous instability. There is mild fifth metatarsal tenderness. There is mild tenderness from the medial aspect of the foot to the lateral aspect on palpation. There is no tenderness over the Achilles tendon. There is no calf or tibia/fibular tenderness. There is no visual deformity. The foot and toes are warm and well-perfused. Dorsalis pedis pulse 2+. Sensation to pain and light touch is intact. Capillary refill less than 2 seconds. RADIOLOGY: X-Ray Right Foot: RIGHT FOOT MIN 3 VIEWS ROUTINE CLINICAL HISTORY: 32 years-old Female presenting with twisted right ankle, lateral foot/ankle pain Right. TECHNIQUE: Frontal, oblique, and lateral views of the right foot were obtained. COMPARISON: None. FINDINGS: No acute fracture, malalignment, or radiopaque foreign body. No significant soft tissue swelling along the foot. No degenerative change. IMPRESSION: No acute osseous injury of the right foot. X-Ray Right Ankle: RIGHT ANKLE 4 VIEWS CLINICAL HISTORY: Right ankle injury. FINDINGS: 4 views of the right ankle are obtained. No prior studies are available for comparison at the time of dictation. The skeletal structures are well mineralized. No fracture is seen. The ankle mortise is intact. There is no joint effusion. Mild soft tissue swelling is present, greatest overlying the medial malleolus. IMPRESSION: Soft tissue swelling with no radiographic evidence of right ankle fracture. EMERGENCY DEPARTMENT COURSE: I examined the patient. The patient was given 60 g Toradol IM and an ice pack. She reported very mild improvement in her symptoms. X-rays of the right foot and ankle were reviewed by myself and read by radiology and reveal No acute fracture or abnormality. A gel ankle splint was applied to the ankle under my direction and the position was satisfactory. Neurovascular status was rechecked and intact. The patient was instructed on the use of crutches. The patient was discharged home in good condition. DIFFERENTIAL DIAGNOSIS: Fracture, sprain, contusion, strain, ligament injury, and others DIAGNOSIS: Right Ankle Sprain DISCHARGE INSTRUCTIONS: You have been treated in the Emergency Department for an Ankle sprain. X-Rays of the right ankle and foot were performed that did show mild swelling, but no acute fracture or dislocation. For pain control, you can use the following rhaf-qei-ecprudt medicines (if >12 yo): Acetaminophen(Tylenol) may be used for fever or pain. Use 1000mg every six hours as needed. Avoid using more than 3000mg in a 24 hour period. If this is a recent injury (<24 hrs), ice can be applied to the area of pain for the first 3 days to help decrease pain and inflammation. You have been provided the number for an Orthopaedic Surgeon. You should call this number to establish a follow-up visit from today's Emergency Department visit if no improvement over the next 1-2 weeks. It is important to note that you may experience discomfort for 6-8 weeks from an ankle sprain. Keep the ankle brace/splint in place until cleared by Orthopedics/your PCP or you are pain free. Use the crutches you have been provided to keep ALL weight off of the ankle until weight bearing is tolerable. Return to the Emergency Department if your current symptoms worsen despite treatment course outlined above, or if you develop any of the following symptoms : intractable pain despite aforementioned treatment course or new onset of numbness or tingling of the foot. Problem List Medical Problems: (1) Abdominal pain Status: Resolved (2) Abnormal uterine bleeding Status: Resolved (3) Abnormal uterine bleeding Status: Resolved (4) Abnormal uterine bleeding Status: Resolved (5) Abnormal vaginal bleeding Status: Resolved (6) Attention deficit hyperactivity disorder Status: Chronic (7) Back pain Status: Resolved (8) Back pain Status: Resolved (9) Back pain Status: Resolved (10) Benign hypertension Status: Chronic (11) Bipolar disorder Status: Chronic (12) Body mass index 30+ - obesity Status: Chronic (13) Cannabis abuse Status: Chronic (14) Depression Status: Chronic (15) Diabetes mellitus type 2 Status: Chronic (16) Dysmenorrhea Status: Resolved (17) Dysmenorrhea Status: Resolved (18) dyspnea metabolic syndrome X Status: Chronic (19) Gastroesophageal reflux disease Status: Chronic (20) Headache Status: Resolved (21) Hyperglycemia Status: Resolved (22) Lower abdominal pain Status: Resolved (23) Lower abdominal pain Status: Resolved (24) Migraine Status: Resolved (25) Migraine Status: Resolved (26) Migraine Status: Chronic (27) Pain, dental Status: Resolved (28) PCOS (polycystic ovarian syndrome) Status: Chronic (29) Polycystic ovaries Status: Chronic (30) Posttraumatic stress disorder Status: Chronic (31) Suicide by self-administered drug Status: Resolved (32) Upper respiratory infection Status: Resolved (33) Urinary tract infection Status: Resolved (34) UTI (lower urinary tract infection) Status: Resolved (35) UTI (lower urinary tract infection) Status: Resolved Current/Historical Medications Scheduled Albuterol Hfa (Ventolin Hfa), 3 PUFFS INH Q6H Bupropion Hcl (Bupropion Hcl Er), 150 MG PO DAILY Doxepin (Sinequan), 25 MG PO HS Ergocalciferol (Vitamin D 76720 Unit), 50,000 UNIT PO WK Metformin Hcl (Glucophage), 500 MG PO BIDM Methylphenidate (Ritalin), 10 MG PO BID Multiple Vitamins W/ Minerals (Biotin Plus/Calcium/Vit D), 1 TAB PO TID Topiramate (Topamax), 100 MG PO HS Topiramate (Topamax ), 25 MG PO QAM Scheduled PRN Acetaminophen (Tylenol), 1,000 MG PO Q4 PRN for Pain Cqujwse-Xftdivgdrxfvt-Arbymrha (Excedrin Extra Strength), 1 DOSE PO UD PRN for Pain Lorazepam (Ativan), 1 MG PO DAILY PRN for Anxiety/Agitation Omeprazole (Prilosec), 20 MG PO TID PRN for Acid Reflux Ondasetron Odt (Zofran Odt), 4 MG SL Q6H PRN for Nausea Allergies Coded Allergies: Kiwi (Verified Allergy, Intermediate, TONGUE SWELLS, 04/04/17) Adhesives (Verified Allergy, Unknown, BLISTERS, 04/04/17) Macias Pepper (Verified Allergy, Unknown, IRRITATES THROAT, 04/04/17) GREEN PEPPERS Sumatriptan (Verified Allergy, Unknown, neck pain, 04/04/17) Ibuprofen (Verified Adverse Reaction, Severe, GI BLEED, 04/04/17) Vital Signs Date Time Temp Pulse Resp B/P (MAP) Pulse Ox O2 Delivery O2 Flow Rate FiO2 04/23/17 14:15 36.9 84 17 151/90 97 Room Air Medications Administered Medications (Trade) Dose Ordered Sig/Angela Route Start Time Stop Time Status Last Admin Dose Admin Ketorolac Tromethamine (Toradol Inj) 60 mg NOW STAT IM 04/23/17 14:28 04/23/17 14:30 DC 04/23/17 14:37 60 MG Departure Information Impression Primary Impression: Right ankle sprain Dispostion Home / Self-Care Condition GOOD Referrals Leon Ross D.O. (PCP) Patient Instructions ED Sprain Ankle, My [facility] Additional Instructions You have been treated in the Emergency Department for an Ankle sprain. X-Rays of the right ankle and foot were performed that did show mild swelling, but no acute fracture or dislocation. For pain control, you can use the following gznv-jmb-tmfpbod medicines (if >12 yo): Acetaminophen(Tylenol) may be used for fever or pain. Use 1000mg every six hours as needed. Avoid using more than 3000mg in a 24 hour period. If this is a recent injury (<24 hrs), ice can be applied to the area of pain for the first 3 days to help decrease pain and inflammation. You have been provided the number for an Orthopaedic Surgeon. You should call this number to establish a follow-up visit from today's Emergency Department visit if no improvement over the next 1-2 weeks. It is important to note that you may experience discomfort for 6-8 weeks from an ankle sprain. Keep the ankle brace/splint in place until cleared by Orthopedics/your PCP or you are pain free. Use the crutches you have been provided to keep ALL weight off of the ankle until weight bearing is tolerable. Return to the Emergency Department if your current symptoms worsen despite treatment course outlined above, or if you develop any of the following symptoms : intractable pain despite aforementioned treatment course or new onset of numbness or tingling of the foot. Problem Qualifiers Primary Impression: Right ankle sprain Encounter type: initial encounter Involved ligament of ankle: unspecified ligament Qualified Codes: S93.401A - Sprain of unspecified ligament of right ankle, initial encounter
--- NOTE | 2017-04-23 15:00 | DIAGNOSTIC IMAGING REPORT ---
RIGHT ANKLE 4 VIEWS CLINICAL HISTORY: Right ankle injury. FINDINGS: 4 views of the right ankle are obtained. No prior studies are available for comparison at the time of dictation. The skeletal structures are well mineralized. No fracture is seen. The ankle mortise is intact. There is no joint effusion. Mild soft tissue swelling is present, greatest overlying the medial malleolus. IMPRESSION: Soft tissue swelling with no radiographic evidence of right ankle fracture. Electronically signed by: Amarjit Jay M.D. 04/23/2017 2:59 PM Dictated Date/Time: 04/23/2017 2:57 PM
--- NOTE | 2017-04-23 15:02 | DIAGNOSTIC IMAGING REPORT ---
RIGHT FOOT MIN 3 VIEWS ROUTINE CLINICAL HISTORY: 32 years-old Female presenting with twisted right ankle, lateral foot/ankle pain Right. TECHNIQUE: Frontal, oblique, and lateral views of the right foot were obtained. COMPARISON: None. FINDINGS: No acute fracture, malalignment, or radiopaque foreign body. No significant soft tissue swelling along the foot. No degenerative change. IMPRESSION: No acute osseous injury of the right foot. Electronically signed by: German Hayden M.D. 04/23/2017 3:00 PM Dictated Date/Time: 04/23/2017 2:59 PM
[2017-04-23 15:39] VITALS: BP 158/98; PULSE 80; O2SAT 95
== END 2017-04-23 15:35 | disposition home or self-care (01) ==
LOC: C.EDB 14:13 → C.EDD 15:35
DX: S93.401A Sprain of unspecified ligament of right ankle, initial encounter (principal); W18.40XA Slipping, tripping and stumbling without falling, unspecified, initial encounter; X50.1XXA Overexertion from prolonged static or awkward postures, initial encounter; Y93.01 Activity, walking, marching and hiking; Y99.8 Other external cause status; I10 Essential (primary) hypertension; E28.2 Polycystic ovarian syndrome; E11.9 Type 2 diabetes mellitus without complications; J45.909 Unspecified asthma, uncomplicated; E55.9 Vitamin D deficiency, unspecified; K21.9 Gastro-esophageal reflux disease without esophagitis; F90.9 Attention-deficit hyperactivity disorder, unspecified type; F41.9 Anxiety disorder, unspecified; Z87.440 Personal history of urinary (tract) infections; Z91.5 Personal history of self-harm; Z79.84 Long term (current) use of oral hypoglycemic drugs; Z79.899 Other long term (current) drug therapy

== ENCOUNTER 2017-05-22 20:04 | Emergency (ER) | payer OTHER ==
[~2017-05-22] VITALS: Ht 180.3 cm; Wt 156.5 kg
[2017-05-22 20:12] VITALS: TEMP 37; Ht 180.3 cm; Wt 156.5 kg
[2017-05-22] MEDS ORDERED: DEXAMETHASONE SOD INJ 4 MG/ML VIAL IM STA (20:31)
[2017-05-22] MEDS ORDERED: AMOXICILLIN/CLAVULANATE TAB 875 MG TAB PO ONE (20:45)
[2017-05-22] MEDS ORDERED: AMOXICIL/CLAVU 875MG HOME PACK PO ONE (20:45)
[2017-05-22] MEDS ORDERED: FLUO20CA35 PO (20:55)
--- NOTE | 2017-05-22 21:30 | EMERGENCY ROOM VISIT NOTE ---
History Report prepared by Apurva: Hien Vuong Under the Supervision of: Dr. Yunior Buchanan D.O. First contact with patient: 20:26 Chief Complaint: SORETHROAT Stated Complaint: SORE THROAT,SWOLLEN GLANDS,ACHING EVERYWHERE History of Present Illness The patient is a 32 year old female who presents to the Emergency Room with complaints of persistent sore throat starting 2 nights ago. She has been waking up in the middle of the night for the past 2 nights with sore throat and throat swelling. She reports chills, body aches, and cough. She denies fever or rhinorrhea. She has a history of strep. She is unsure if she has had any sick contacts. She denies any alcohol use. She quit smoking 2 weeks ago. Source of History: patient Onset: 2 nights ago Position: throat Quality: other (sore) Timing: other (persistent) Associated Symptoms: + chills, + cough, No fevers Note: Pt reports body aches. Pt denies rhinorrhea. Review of Systems See HPI for pertinent positives & negatives. A total of 10 systems reviewed and were otherwise negative. Past Medical & Surgical Medical Problems: (1) Abdominal pain (2) Abnormal uterine bleeding (3) Abnormal uterine bleeding (4) Abnormal uterine bleeding (5) Abnormal vaginal bleeding (6) Attention deficit hyperactivity disorder (7) Back pain (8) Back pain (9) Back pain (10) Benign hypertension (11) Bipolar disorder (12) Body mass index 30+ - obesity (13) Cannabis abuse (14) Depression (15) Diabetes mellitus type 2 (16) Dysmenorrhea (17) Dysmenorrhea (18) dyspnea metabolic syndrome X (19) Gastroesophageal reflux disease (20) Headache (21) Hyperglycemia (22) Lower abdominal pain (23) Lower abdominal pain (24) Migraine (25) Migraine (26) Migraine (27) Pain, dental (28) PCOS (polycystic ovarian syndrome) (29) Polycystic ovaries (30) Posttraumatic stress disorder (31) Suicide by self-administered drug (32) Upper respiratory infection (33) Urinary tract infection (34) UTI (lower urinary tract infection) (35) UTI (lower urinary tract infection) Family History Diabetes mellitus FH: cancer FH: heart disease FH: lung disease FHx: gallbladder disease Hypertension Kidney disease Kidney stones Social History Smoking Status: Former Smoker Alcohol Use: none Drug Use: none Marital Status: single Housing Status: lives with family Occupation Status: employed Current/Historical Medications Scheduled Albuterol Hfa (Ventolin Hfa), 3 PUFFS INH Q6H Amoxicillin & Pot Clavulanate (Augmentin 875-125 mg), 875 MG PO BID Bupropion Hcl (Bupropion Hcl Er), 150 MG PO DAILY Ergocalciferol (Vitamin D 79647 Unit), 50,000 UNIT PO WK Fluoxetine (Prozac), 20 MG PO DAILY Metformin Hcl (Glucophage), 500 MG PO BIDM Methylphenidate (Ritalin), 10 MG PO BID Multiple Vitamins W/ Minerals (Biotin Plus/Calcium/Vit D), 1 TAB PO TID Topiramate (Topamax), 100 MG PO HS Topiramate (Topamax ), 25 MG PO QAM Scheduled PRN Acetaminophen (Tylenol), 1,000 MG PO Q4 PRN for Pain Edheqog-Tuykocfbiafql-Yqqtakny (Excedrin Extra Strength), 1 DOSE PO UD PRN for Pain Lorazepam (Ativan), 1 MG PO DAILY PRN for Anxiety/Agitation Omeprazole (Prilosec), 20 MG PO TID PRN for Acid Reflux Ondasetron Odt (Zofran Odt), 4 MG SL Q6H PRN for Nausea Allergies Coded Allergies: Kiwi (Verified Allergy, Intermediate, TONGUE SWELLS, 05/22/17) Adhesives (Verified Allergy, Unknown, BLISTERS, 05/22/17) Macias Pepper (Verified Allergy, Unknown, IRRITATES THROAT, 05/22/17) GREEN PEPPERS Sumatriptan (Verified Allergy, Unknown, neck pain, 05/22/17) Ibuprofen (Verified Adverse Reaction, Severe, GI BLEED, 05/22/17) Physical Exam Vital Signs Date Time Temp Pulse Resp B/P (MAP) Pulse Ox O2 Delivery O2 Flow Rate FiO2 05/22/17 21:48 95 18 134/59 99 05/22/17 20:20 99 05/22/17 20:12 37.0 107 18 159/90 99 Room Air Physical Exam GENERAL: Patient is awake, alert, and in no acute distress. Patient is resting comfortably and showing no signs of anxiety EYES: The conjunctivae are clear. The pupils are round and reactive. EARS, NOSE, MOUTH AND THROAT: TMs clear bilaterally. Bilateral tonsillar erythema as well as bilateral tonsillar enlargement. There was no soft palate involvement. No unilateral swelling noted. NECK: Left sided cervical adenopathy noted. No midline tenderness. No drooling was noted. RESPIRATORY: Normal respiratory effort is noted there is no evidence of wheezing rhonchi or rales CARDIOVASCULAR: Regular rate and rhythm noted there no murmurs rubs or gallops normal S1 normal S2 GASTROINTESTINAL: The abdomen is soft. Bowel sounds are present in all quadrants. Abdomen is nontender MUSCULOSKELETAL/EXTREMITIES: There is no evidence of gross deformity full range of motion is noted in the hips and shoulders SKIN: There is no obvious evidence of any rash. There are no petechiae, pallor or cyanosis noted. NEUROLOGIC: Patient is awake alert and oriented x3 Medical Decision & Procedures Medications Administered Medications (Trade) Dose Ordered Sig/Angela Route Start Time Stop Time Status Last Admin Dose Admin Dexamethasone Sodium Phosphate (Decadron Inj) 10 mg NOW STAT IM 05/22/17 20:31 05/22/17 20:33 DC 05/22/17 20:42 10 MG Amoxicillin/ Clavulanate Potassium (Augmentin 875MG Home Pack) 1 homepack UD ONCE PO 05/22/17 20:45 05/22/17 20:46 DC 05/22/17 20:41 1 HOMEPACK Amoxicillin/ Clavulanate Potassium (Augmentin Tab) 875 mg NOW ONCE PO 05/22/17 20:45 05/22/17 20:46 DC 05/22/17 20:41 875 MG ED Course 2027: The patient was evaluated in room A12B. A complete history and physical examination were performed. 2030: Decadron Inj 10 mg IM. 2044: Augmentin Tab 875 mg PO, Augmentin 875 mg 1 homepack PO. 2144: Upon reevaluation, the patient is resting comfortably. I discussed the results and treatment plan with her. She verbalized agreement of the treatment plan. She was discharged home. Medical Decision Prior records/ancillary studies reviewed. Triage Nursing notes reviewed. The patient's history was concerning for a sore throat. Differential diagnosis: Etiologies such as viral syndrome, tonsillitis, streptococcal pharyngitis, mononucleosis, peritonsillar abscess, retropharyngeal abscess, otitis, pneumonia , influenza, as well as others were entertained. The patient is a 32-year-old female who presented to the emergency department for an evaluation of sore throat. Her history and physical exam appeared to be consistent with tonsillitis. She did not appear to have a physical exam consistent with peritonsillar abscess. She was not drooling and did not have any anterior neck tenderness. I do not feel this is consistent with epiglottitis. She was treated with Decadron and an antibiotic in the emergency department. She was encouraged to continue using Tylenol for pain and fever and follow-up with her primary care physician respiratory assistant is possible. Otherwise she was encouraged to continue all medications as prescribed and return to the emergency department immediately if symptoms change worsen or the need arises. Medication Reconcilliation Current Medication List: was personally reviewed by me Blood Pressure Screening Patient's blood pressure: Elevated blood pressure Blood pressure disposition: Referred to PCP Impression Primary Impression: Tonsillitis Scribe Attestation The scribe's documentation has been prepared under my direction and personally reviewed by me in its entirety. I confirm that the note above accurately reflects all work, treatment, procedures, and medical decision making performed by me. Departure Information Dispostion Home / Self-Care Prescriptions Amoxicillin & Pot Clavulanate (Augmentin 875-125 mg) 1 Tab Tab 875 MG PO BID for 7 Days, #14 TAB Prov: Yunior Buchanan, 05/22/17 Referrals Leon Ross D.O. (PCP) Forms HOME CARE DOCUMENTATION FORM, IMPORTANT VISIT INFORMATION Patient Instructions ED Fever Control, ED Strep Pharyngitis Aicha, My [facility] Additional Instructions Continue all medications as prescribed. Continue using Tylenol for fever and body aches. Call your family to schedule a follow-up appointment as soon as possible. Drink plenty clear liquids.
[2017-05-22] MEDS ORDERED: AMOX875T PO (21:42)
[2017-05-22 21:48] VITALS: BP 134/59; PULSE 95; O2SAT 99
== END 2017-05-22 21:58 | disposition home or self-care (01) ==
LOC: C.EDB 20:05 → C.EDA 21:58
DX: J03.90 Acute tonsillitis, unspecified (principal); I10 Essential (primary) hypertension; E11.9 Type 2 diabetes mellitus without complications; K21.9 Gastro-esophageal reflux disease without esophagitis; E28.2 Polycystic ovarian syndrome; Z87.440 Personal history of urinary (tract) infections; Z86.19 Personal history of other infectious and parasitic diseases; F31.9 Bipolar disorder, unspecified; F32.9 Major depressive disorder, single episode, unspecified; F90.9 Attention-deficit hyperactivity disorder, unspecified type; Z87.891 Personal history of nicotine dependence; Z79.84 Long term (current) use of oral hypoglycemic drugs; Z79.899 Other long term (current) drug therapy; Z88.6 Allergy status to analgesic agent; Z88.8 Allergy status to other drugs, medicaments and biological substances; Z91.018 Allergy to other foods; Z91.09 Other allergy status, other than to drugs and biological substances; Z83.3 Family history of diabetes mellitus; Z80.9 Family history of malignant neoplasm, unspecified; Z82.49 Family history of ischemic heart disease and other diseases of the circulatory system; Z83.79 Family history of other diseases of the digestive system; Z84.1 Family history of disorders of kidney and ureter

== ENCOUNTER 2017-08-13 11:18 | Emergency (ER) | payer OTHER ==
[~2017-08-13] VITALS: Ht 180.3 cm; Wt 156.2 kg
[~2017-08-13 11:18] MED LIST changes: +FLUO20CA35 PO; -SNQ/25 PO
[2017-08-13 11:21] VITALS: TEMP 36.8; Ht 180.3 cm; Wt 156.2 kg
[2017-08-13] MEDS ORDERED: DiphenhydrAMINE HCL 50 MG/ML VIAL IV STA (12:17)
[2017-08-13] MEDS ORDERED: ACETAMINOPHEN 500 MG TAB PO STA (12:17)
[2017-08-13] MEDS ORDERED: METOCLOPRAMIDE HCL INJ 5 MG/ML 2 ML VIAL IM STA (12:17)
--- NOTE | 2017-08-13 12:20 | EMERGENCY ROOM VISIT NOTE ---
History Report prepared by Apurva: Ghulam Cooper Under the Supervision of: Dr. Earl Blake M.D. First contact with patient: 11:42 Chief Complaint: FLU LIKE SX Stated Complaint: VOMITING,EAR ACHES,MIGRAINE History of Present Illness The patient is a 32 year old white female with a past medical history of PCOS, IUD in place, diabetes, depression, and bipolar disorder who presents to the ED with a cc of flu-like symptoms beginning recently. Positive headache (typical migraine), bilateral ear pain, cough with green sputum production, nausea, vomiting, RUQ abdominal pain, generalized body aches, and mild ankle edema. Negative fevers, chest pain, and rash. She states that she has positive sick contacts and work and at home, which she believes may be the cause of her symptoms. She is taking Metformin for her diabetes and has been taking it regularly. She denies any recent antibiotic use, stream water, or well water exposure. She has been taking Zofran for her nausea and vomiting, but has not been able to keep it down. Source of History: patient Onset: recently Position: other (Global) Symptom Intensity: moderate Quality: other (Flu-like symptoms) Timing: constant Associated Symptoms: + headache, + cough (green sputum production), + nausea , + vomiting, + abdominal pain (RUQ), No fevers, No chest pain, No rash Note: Positive bilateral ear pain, generalized body aches, and mild ankle edema Review of Systems See HPI for pertinent positives and negatives. A total of ten systems were reviewed and were otherwise negative. Past Medical & Surgical Medical Problems: (1) Abdominal pain (2) Abnormal uterine bleeding (3) Abnormal uterine bleeding (4) Abnormal uterine bleeding (5) Abnormal vaginal bleeding (6) Attention deficit hyperactivity disorder (7) Back pain (8) Back pain (9) Back pain (10) Benign hypertension (11) Bipolar disorder (12) Body mass index 30+ - obesity (13) Cannabis abuse (14) Depression (15) Diabetes mellitus type 2 (16) Dysmenorrhea (17) Dysmenorrhea (18) dyspnea metabolic syndrome X (19) Gastroesophageal reflux disease (20) Headache (21) Hyperglycemia (22) Lower abdominal pain (23) Lower abdominal pain (24) Migraine (25) Migraine (26) Migraine (27) Pain, dental (28) PCOS (polycystic ovarian syndrome) (29) Polycystic ovaries (30) Posttraumatic stress disorder (31) Suicide by self-administered drug (32) Upper respiratory infection (33) Urinary tract infection (34) UTI (lower urinary tract infection) (35) UTI (lower urinary tract infection) Family History Diabetes mellitus FH: cancer FH: heart disease FH: lung disease FHx: gallbladder disease Hypertension Kidney disease Kidney stones Social History Smoking Status: Current Some Day Smoker Alcohol Use: none Drug Use: none Marital Status: single Housing Status: lives with family Occupation Status: employed Current/Historical Medications Scheduled Albuterol Hfa (Ventolin Hfa), 3 PUFFS INH Q6H Bupropion Hcl (Bupropion Hcl Er), 150 MG PO DAILY Fluoxetine (Prozac), 20 MG PO DAILY Metformin Hcl (Glucophage), 500 MG PO BIDM Methylphenidate (Ritalin), 10 MG PO BID Multiple Vitamins W/ Minerals (Biotin Plus/Calcium/Vit D), 1 TAB PO TID Topiramate (Topamax), 100 MG PO HS Topiramate (Topamax ), 25 MG PO QAM Scheduled PRN Acetaminophen (Tylenol), 1,000 MG PO Q4 PRN for Pain Vasoess-Panudetpzznwb-Kaqcfabm (Excedrin Extra Strength), 1 DOSE PO UD PRN for Pain Lorazepam (Ativan), 1 MG PO DAILY PRN for Anxiety/Agitation Omeprazole (Prilosec), 20 MG PO TID PRN for Acid Reflux Ondasetron Odt (Zofran Odt), 4 MG SL Q6H PRN for Nausea Allergies Coded Allergies: Kiwi (Verified Allergy, Intermediate, TONGUE SWELLS, 08/13/17) Adhesives (Verified Allergy, Unknown, BLISTERS, 08/13/17) Macias Pepper (Verified Allergy, Unknown, IRRITATES THROAT, 08/13/17) GREEN PEPPERS Sumatriptan (Verified Allergy, Unknown, neck pain, 08/13/17) Ibuprofen (Verified Adverse Reaction, Severe, GI BLEED, 08/13/17) Physical Exam Vital Signs Date Time Temp Pulse Resp B/P (MAP) Pulse Ox O2 Delivery O2 Flow Rate FiO2 08/13/17 15:52 85 20 118/68 98 08/13/17 14:21 75 18 135/60 96 Room Air 08/13/17 11:21 36.8 110 18 129/82 98 Room Air Physical Exam GENERAL: Awake, alert, well-appearing, NAD HENT: Normocephalic, atraumatic. EYES: Normal conjunctiva. Sclera non-icteric. NECK: Supple. No nuchal rigidity. FROM. RESPIRATORY: CTAB, no rhonchi, wheezing, crackles CARDIAC: RRR, no MRG ABDOMEN: Soft and obese, RUQ and epigastric TTP, ND, BS+ MSK: No chest wall TTP, no LE edema NEURO: GCS 15, CN 2-12 intact, moves all 4s on command SKIN: No rash or jaundice noted. Medical Decision & Procedures Laboratory Results 08/13/17 12:30 Red Blood Count 4.87, Mean Corpuscular Volume 90.8, Mean Corpuscular Hemoglobin 31.8, Mean Corpuscular Hemoglobin Concent 35.1, Mean Platelet Volume 9.8, Neutrophils (%) (Auto) 68.1, Lymphocytes (%) (Auto) 25.8, Monocytes (%) (Auto) 4.1, Eosinophils (%) (Auto) 1.4, Basophils (%) (Auto) 0.3, Neutrophils # (Auto) 5.29, Lymphocytes # (Auto) 2.00, Monocytes # (Auto) 0.32, Eosinophils # (Auto) 0.11, Basophils # (Auto) 0.02 08/13/17 12:30 Test 08/13/17 12:30 08/13/17 14:20 White Blood Count 7.76 K/uL (4.8-10.8) Red Blood Count 4.87 M/uL (4.2-5.4) Hemoglobin 15.5 g/dL (12.0-16.0) Hematocrit 44.2 % (37-47) Mean Corpuscular Volume 90.8 fL (80-100) Mean Corpuscular Hemoglobin 31.8 pg (25-34) Mean Corpuscular Hemoglobin Concent 35.1 g/dl (32-36) Platelet Count 307 K/uL (130-400) Mean Platelet Volume 9.8 fL (7.4-10.4) Neutrophils (%) (Auto) 68.1 % Lymphocytes (%) (Auto) 25.8 % Monocytes (%) (Auto) 4.1 % Eosinophils (%) (Auto) 1.4 % Basophils (%) (Auto) 0.3 % Neutrophils # (Auto) 5.29 K/uL (1.4-6.5) Lymphocytes # (Auto) 2.00 K/uL (1.2-3.4) Monocytes # (Auto) 0.32 K/uL (0.11-0.59) Eosinophils # (Auto) 0.11 K/uL (0-0.5) Basophils # (Auto) 0.02 K/uL (0-0.2) RDW Standard Deviation 42.7 fL (36.4-46.3) RDW Coefficient of Variation 12.9 % (11.5-14.5) Immature Granulocyte % (Auto) 0.3 % Immature Granulocyte # (Auto) 0.02 K/uL (0.00-0.02) Anion Gap 6.0 mmol/L (3-11) Est Creatinine Clear Calc Drug Dose 179.3 ml/min Estimated GFR () 122.0 Estimated GFR (Non- 105.3 BUN/Creatinine Ratio 13.3 (10-20) Calcium Level 9.1 mg/dl (8.5-10.1) Total Bilirubin 0.5 mg/dl (0.2-1) Direct Bilirubin < 0.1 mg/dl (0-0.2) Aspartate Amino Transf (AST/SGOT) 42 U/L (15-37) Alanine Aminotransferase (ALT/SGPT) 79 U/L (12-78) Alkaline Phosphatase 98 U/L (45-117) Total Protein 7.4 gm/dl (6.4-8.2) Albumin 3.1 gm/dl (3.4-5.0) Lipase 138 U/L (73-393) Urine Color YELLOW Urine Appearance CLOUDY (CLEAR) Urine pH 5.0 (4.5-7.5) Urine Specific [place] 1.034 (1.000-1.030) Urine Protein NEG (NEG) Urine Glucose (UA) NEG (NEG) Urine Ketones TRACE (NEG) Urine Occult Blood NEG (NEG) Urine Nitrite NEG (NEG) Urine Bilirubin NEG (NEG) Urine Urobilinogen NEG (NEG) Urine Leukocyte Esterase TRACE (NEG) Urine WBC (Auto) 10-30 /hpf (0-5) Urine RBC (Auto) 5-10 /hpf (0-4) Urine Hyaline Casts (Auto) 1-5 /lpf (0-5) Urine Epithelial Cells (Auto) >30 /lpf (0-5) Urine Bacteria (Auto) 1+ (NEG) Urine Crystals CALCIUM OXALATE (NONE Urine Yeast (Auto) (NONE PRSENT) Urine Test NEG (NEG) Laboratory results reviewed by me Medications Administered Medications (Trade) Dose Ordered Sig/Angela Route Start Time Stop Time Status Last Admin Dose Admin Metoclopramide HCl (Reglan Inj) 10 mg NOW STAT IM 08/13/17 12:17 08/13/17 13:24 DC 08/13/17 13:22 10 MG Acetaminophen (Tylenol Tab) 1,000 mg NOW STAT PO 08/13/17 12:17 08/13/17 12:20 DC 08/13/17 13:18 1,000 MG Diphenhydramine HCl (Benadryl Inj) 25 mg NOW STAT IV 08/13/17 12:17 08/13/17 12:20 DC 08/13/17 13:19 25 MG Acetaminophen/ Butalbital/ Caffeine (Fioricet Tab) 2 tab NOW STAT PO 08/13/17 14:13 08/13/17 14:14 DC 08/13/17 14:20 2 TAB ED Course 1142: The patient was evaluated in room B5. A complete history and physical exam was performed. 1404: Upon reevaluation, the patient is beginning to feel better. We are waiting on her urinalysis. 1530: I reevaluated the patient. Discussed results and discharge instructions: She verbalized understanding and agreement. The patient is ready for discharge. Medical Decision The patient is a 32 year old white female with a past medical history of PCOS, IUD in place, diabetes, depression, and bipolar disorder who presents to the ED with a cc of flu-like symptoms beginning recently. Positive headache (typical migraine), bilateral ear pain, cough with green sputum production, nausea, vomiting, RUQ abdominal pain, generalized body aches, and mild ankle edema. Negative fevers, chest pain, and rash. Differential diagnosis: Etiologies such as migraine headache, meningitis, sinusitis, CO exposure, ICH, SAH, infection, tumor, headache, sinus thrombosis, arterial dissection, as well as others were entertained. Patient was seen and evaluated the bedside. Patient did complain some flulike symptoms in addition to headache and ear pain. On exam the patient is nontoxic in appearance. Patient did have some mild right upper quadrant tenderness palpation. The bilateral TMs appeared clear and I do not believe she has an ear infection. Patient did complains mild cough however I did not auscultate any abnormal breath sounds. Patient also did complain of some generalized body aches. Patient did have blood work that was completed along with a urinalysis. Of note the patient does have trace elevations in her LFTs. These are slightly elevated compared to priors. Patient was told that due to her PCO S she does have fatty liver. Patient does not have an elevated white blood cell count. Patient's headache improved with medications. Patient has no focal neurologic deficits thus I do not believe she requires any advanced imaging as this is typical of her migraine headaches. Upon reevaluation the patient was feeling improved. Patient was deemed suitable for outpatient follow-up and treatment. Patient not show any signs of meningismus that I thought would require any more advanced imaging or procedures like a lumbar puncture. Medication Reconcilliation Current Medication List: was personally reviewed by me Blood Pressure Screening Patient's blood pressure: Normal blood pressure Blood pressure disposition: Did not require urgent referral Impression Primary Impression: Influenza-like symptoms Additional Impressions: Upper respiratory infection Migraine Scribe Attestation The scribe's documentation has been prepared under my direction and personally reviewed by me in its entirety. I confirm that the note above accurately reflects all work, treatment, procedures, and medical decision making performed by me. Departure Information Dispostion Home / Self-Care Referrals Leon Ross D.O. (PCP) Forms HOME CARE DOCUMENTATION FORM, IMPORTANT VISIT INFORMATION Patient Instructions ED Headache Migraine, ED URI Viral, My [facility] Additional Instructions Please return to the emergency department if you have worsening or recurrent symptoms not amenable to at-home treatment. Please call for a follow-up appointment with her primary care physician. Please take your medications as prescribed. If you have other concerns and/or complaints please feel free to also call your primary care physician's office or return the ED for further evaluation, management, and treatment. You may take 600 mg Ibuprofen every 6 hours as needed for pain with food for no more than 2 consecutive days. You may take tylenol 1000 mg every 6 hours as needed for pain. You may take motrin and tylenol separately or at the same time. Take your medications as prescribed. You have been examined and treated today on an emergency basis only. This is not a substitute for, or an effort to provide, complete comprehensive medical care. It is impossible to recognize and treat all injuries or illnesses in a single emergency department visit. It is therefore important that you follow up closely with [facility], your PCP, and/or your specialist(s). Call as soon as possible for an appointment. Thank you for your time and consideration. I look forward to speaking with you again soon. Please don't hesitate to call us if you have any questions. Problem Qualifiers Additional Impressions: Upper respiratory infection URI type: unspecified URI Qualified Codes: J06.9 - Acute upper respiratory infection, unspecified Migraine Migraine type: unspecified Status migrainosus presence: without status migrainosus Intractability: not intractable Qualified Codes: G43.909 - Migraine, unspecified, not intractable, without status migrainosus
[2017-08-13 13:19] LABS: ALBUMIN 3.1 gm/dl (3.4-5.0); ALKALINE PHOSPHATASE 98 U/L (45-117); ALT/SGPT 79 U/L (12-78); AST/SGOT 42 U/L (15-37); LIPASE 138 U/L (73-393); TOTAL PROTEIN 7.4 gm/dl (6.4-8.2)
[2017-08-13 13:21] LABS: BASO % 0.3 %; BASO ABS # 0.02 K/uL (0-0.2); EOS % 1.4 %; EOS ABS # 0.11 K/uL (0-0.5); HEMATOCRIT 44.2 % (37-47); HEMOGLOBIN 15.5 g/dL (12.0-16.0); IG# 0.02 K/uL (0.00-0.02); LYMPH % 25.8 %; MEAN CELL VOLUME 90.8 fL (80-100); MEAN CORPUSCULAR HEMOGLOBIN 31.8 pg (25-34); MEAN CORPUSCULAR HGB CONC 35.1 g/dl (32-36); MEAN PLATELET VOLUME 9.8 fL (7.4-10.4); MONO % 4.1 %; MONO ABS # 0.32 K/uL (0.11-0.59); NEUT % 68.1 %; NEUT ABS # 5.29 K/uL (1.4-6.5); PLATELET COUNT 307 K/uL (130-400); RED CELL DISTRIBUTION WIDTH CV 12.9 % (11.5-14.5); RED CELL DISTRIBUTION WIDTH SD 42.7 fL (36.4-46.3); WHITE BLOOD COUNT 7.76 K/uL (4.8-10.8)
[2017-08-13] MEDS ORDERED: METOCLOPRAMIDE HCL INJ 5 MG/ML 2 ML VIAL IV. STA (13:23)
[2017-08-13] MEDS ORDERED: BUTALBITAL/ACETAMIN/CAFFEINE TAB PO STA (14:13)
[2017-08-13 15:03] LABS: CALCIUM 9.1 mg/dl (8.5-10.1); CREATININE 0.76 mg/dl (0.60-1.20); POTASSIUM 3.9 mmol/L (3.5-5.1)
[2017-08-13 15:52] VITALS: BP 118/68; PULSE 85; O2SAT 98
== END 2017-08-13 15:53 | disposition home or self-care (01) ==
LOC: C.EDB 11:19
DX: J11.1 Influenza due to unidentified influenza virus with other respiratory manifestations (principal); J06.9 Acute upper respiratory infection, unspecified; G43.909 Migraine, unspecified, not intractable, without status migrainosus; E11.9 Type 2 diabetes mellitus without complications; I10 Essential (primary) hypertension; F31.9 Bipolar disorder, unspecified; K21.9 Gastro-esophageal reflux disease without esophagitis; E28.2 Polycystic ovarian syndrome; F90.9 Attention-deficit hyperactivity disorder, unspecified type; F32.9 Major depressive disorder, single episode, unspecified; F17.200 Nicotine dependence, unspecified, uncomplicated; Z86.19 Personal history of other infectious and parasitic diseases; Z87.440 Personal history of urinary (tract) infections; Z87.19 Personal history of other diseases of the digestive system; Z79.84 Long term (current) use of oral hypoglycemic drugs; Z79.899 Other long term (current) drug therapy; Z91.018 Allergy to other foods; Z88.8 Allergy status to other drugs, medicaments and biological substances; Z91.09 Other allergy status, other than to drugs and biological substances; Z83.3 Family history of diabetes mellitus; Z80.9 Family history of malignant neoplasm, unspecified; Z82.49 Family history of ischemic heart disease and other diseases of the circulatory system; Z83.79 Family history of other diseases of the digestive system; Z84.1 Family history of disorders of kidney and ureter

== ENCOUNTER 2017-09-18 10:42 | Emergency (ER) | payer OTHER ==
[~2017-09-18] VITALS: Ht 180.3 cm; Wt 154.3 kg
[~2017-09-18 10:42] MED LIST changes: -ERGO500037 PO
[2017-09-18 10:44] VITALS: TEMP 36.6; Ht 180.3 cm; Wt 154.3 kg
[2017-09-18] MEDS ORDERED: HYDROmorphone INJ 1 MG/ML SYR IV STA ×2 (10:58→12:51)
--- NOTE | 2017-09-18 11:02 | EMERGENCY ROOM VISIT NOTE ---
History Report prepared by Apurva: Jose Abbasi Under the Supervision of: Dr. Tomas Gardner M.D. First contact with patient: 10:54 Chief Complaint: PELVIC PAIN Stated Complaint: SEVERE PELVIC PAIN,DIZZINESS,NAUSEA History of Present Illness The patient is a 32 year old female who presents to the Emergency Room with complaints of worsening and severe right lower quadrant abdominal pain that began this morning at 0230, 8.5 hours prior to arrival. The patient states that her pain feels like "period cramps" but has not had her period in over 3 years secondary to her control use. She attempted to go to work, and her pain worsened. She also developed nausea and chest pain secondary to her cramping. She has a history of ovarian cysts, but does not know if this pain feels similar to what she experienced in the past. Source of History: patient Onset: 8.5 [employer]AL GRE[employer] Position: abdomen (RLQ) Quality: cramping Associated Symptoms: + chest pain, + nausea Review of Systems See HPI for pertinent positives & negatives. A total of 10 systems reviewed and were otherwise negative. Past Medical & Surgical Medical Problems: (1) Abdominal pain (2) Abnormal uterine bleeding (3) Abnormal uterine bleeding (4) Abnormal uterine bleeding (5) Abnormal vaginal bleeding (6) Attention deficit hyperactivity disorder (7) Back pain (8) Back pain (9) Back pain (10) Benign hypertension (11) Bipolar disorder (12) Body mass index 30+ - obesity (13) Cannabis abuse (14) Depression (15) Diabetes mellitus type 2 (16) Dysmenorrhea (17) Dysmenorrhea (18) dyspnea metabolic syndrome X (19) Gastroesophageal reflux disease (20) Headache (21) Hyperglycemia (22) Lower abdominal pain (23) Lower abdominal pain (24) Migraine (25) Migraine (26) Migraine (27) Pain, dental (28) PCOS (polycystic ovarian syndrome) (29) Polycystic ovaries (30) Posttraumatic stress disorder (31) Suicide by self-administered drug (32) Upper respiratory infection (33) Urinary tract infection (34) UTI (lower urinary tract infection) (35) UTI (lower urinary tract infection) Family History Diabetes mellitus FH: cancer FH: heart disease FH: lung disease FHx: gallbladder disease Hypertension Kidney disease Kidney stones Social History Smoking Status: Current Every Day Smoker Alcohol Use: none Drug Use: none Marital Status: single Housing Status: lives with family Occupation Status: employed Current/Historical Medications Scheduled Albuterol Hfa (Ventolin Hfa), 3 PUFFS INH Q6H Bupropion Hcl (Bupropion Hcl Er), 150 MG PO DAILY Dicyclomine Hcl (Bentyl), 10 MG PO TID Fluoxetine (Prozac), 20 MG PO DAILY Fluoxetine (Prozac), 10 MG PO DAILY Metformin Hcl (Glucophage), 500 MG PO BIDM Methylphenidate (Ritalin), 10 MG PO BID Multiple Vitamins W/ Minerals (Biotin Plus/Calcium/Vit D), 1 TAB PO TID Scheduled PRN Acetaminophen (Tylenol), 1,000 MG PO Q4 PRN for Pain Vrbrixa-Ttwflwuzlzzny-Snhudyvj (Excedrin Extra Strength), 1 DOSE PO UD PRN for Pain Lorazepam (Ativan), 1 MG PO DAILY PRN for Anxiety/Agitation Omeprazole (Prilosec), 20 MG PO TID PRN for Acid Reflux Allergies Coded Allergies: Kiwi (Verified Allergy, Intermediate, TONGUE SWELLS, 09/18/17) Adhesives (Verified Allergy, Unknown, BLISTERS, 09/18/17) Macias Pepper (Verified Allergy, Unknown, IRRITATES THROAT, 09/18/17) GREEN PEPPERS Sumatriptan (Verified Allergy, Unknown, neck pain, 09/18/17) Ibuprofen (Verified Adverse Reaction, Severe, GI BLEED, 09/18/17) Physical Exam Vital Signs Date Time Temp Pulse Resp B/P (MAP) Pulse Ox O2 Delivery O2 Flow Rate FiO2 09/18/17 13:37 80 18 151/75 98 09/18/17 12:51 82 18 135/81 97 Room Air 09/18/17 10:44 36.6 101 18 147/95 97 Room Air Physical Exam GENERAL: Patient is a healthy-appearing well-nourished [] HEAD: Normocephalic atraumatic EYES: Ocular movements intact pupils equal and react to light OROPHARYNX mucous membranes are moist no exudates present no erythema or edema present NECK: Supple no nuchal rigidity CHEST: Good equal expansion LUNGS: Clear and equal to auscultation CARDIAC: Normal S1 and S2 ABDOMEN: Soft with tenderness to the right pubic area. no guarding BACK: No CVA tenderness EXTREMITIES: No pain upon palpation normal muscle strength in all groups no clubbing cyanosis or edema NEURO: Patient is following commands and answering questions appropriately. Alert and oriented x3 Cranial Nerves 2-12 grossly intact Medical Decision & Procedures ER Provider Diagnostic Interpretation: Radiology results as stated below per my review and radiologist interpretation: PELVIC COMPLETE NON OB HISTORY: 32 years-old Female Pt c/o Rt pelvic pain acute right-sided pelvic pain COMPARISON: Pelvic ultrasound 04/04/2017 TECHNIQUE: Multiple real-time sonographic images of the deep pelvic structures were obtained transabdominally and transvaginally assessing grayscale appearance, color and spectral flow FINDINGS: TRANSABDOMINAL: Anteflexed uterus measures 7.0 x 3.3 x 4.7 cm and is unremarkable. Endometrium measures 0.4 cm in thickness. Right ovary measures 3.4 x 2.9 x 3.6 cm and is unremarkable with arterial inflow documented. Left ovary measures 4.6 x 3.2 x 2.8 cm and is also unremarkable measuring arterial inflow. TRANSVAGINAL: Small nabothian cyst is seen, 4 mm. Anteflexed uterus measures within normal limits. Intrauterine device appears to be appropriately positioned within the endometrial canal. The left ovary measures 3.6 x 4.3 x 3.0 cm with arterial inflow. No left adnexal mass lesions identified. Right ovary is not visualized transvaginally. No significant free pelvic fluid. IMPRESSION: 1. Unremarkable sonographic appearance of the uterus, endometrium and ovaries. 2. IUD appears to be appropriately positioned. The above report was generated using voice recognition software. It may contain grammatical, syntax or spelling errors. Electronically signed by: Alexander Bradford M.D. 09/18/2017 1:00 PM Dictated Date/Time: 09/18/2017 12:56 PM Laboratory Results 09/18/17 11:13 Red Blood Count 4.53, Mean Corpuscular Volume 88.7, Mean Corpuscular Hemoglobin 31.6, Mean Corpuscular Hemoglobin Concent 35.6, Mean Platelet Volume 9.5, Neutrophils (%) (Auto) 71.5, Lymphocytes (%) (Auto) 21.7, Monocytes (%) (Auto) 5.4, Eosinophils (%) (Auto) 1.1, Basophils (%) (Auto) 0.2, Neutrophils # (Auto) 5.74, Lymphocytes # (Auto) 1.74, Monocytes # (Auto) 0.43, Eosinophils # (Auto) 0.09, Basophils # (Auto) 0.02 09/18/17 11:13 Test 09/18/17 11:13 09/18/17 11:51 White Blood Count 8.03 K/uL (4.8-10.8) Red Blood Count 4.53 M/uL (4.2-5.4) Hemoglobin 14.3 g/dL (12.0-16.0) Hematocrit 40.2 % (37-47) Mean Corpuscular Volume 88.7 fL (80-100) Mean Corpuscular Hemoglobin 31.6 pg (25-34) Mean Corpuscular Hemoglobin Concent 35.6 g/dl (32-36) Platelet Count 269 K/uL (130-400) Mean Platelet Volume 9.5 fL (7.4-10.4) Neutrophils (%) (Auto) 71.5 % Lymphocytes (%) (Auto) 21.7 % Monocytes (%) (Auto) 5.4 % Eosinophils (%) (Auto) 1.1 % Basophils (%) (Auto) 0.2 % Neutrophils # (Auto) 5.74 K/uL (1.4-6.5) Lymphocytes # (Auto) 1.74 K/uL (1.2-3.4) Monocytes # (Auto) 0.43 K/uL (0.11-0.59) Eosinophils # (Auto) 0.09 K/uL (0-0.5) Basophils # (Auto) 0.02 K/uL (0-0.2) RDW Standard Deviation 39.5 fL (36.4-46.3) RDW Coefficient of Variation 12.3 % (11.5-14.5) Immature Granulocyte % (Auto) 0.1 % Immature Granulocyte # (Auto) 0.01 K/uL (0.00-0.02) Anion Gap 7.0 mmol/L (3-11) Est Creatinine Clear Calc Drug Dose 138.0 ml/min Estimated GFR () 89.7 Estimated GFR (Non- 77.4 BUN/Creatinine Ratio 9.8 (10-20) Calcium Level 8.8 mg/dl (8.5-10.1) Total Bilirubin 0.4 mg/dl (0.2-1) Direct Bilirubin < 0.1 mg/dl (0-0.2) Aspartate Amino Transf (AST/SGOT) 39 U/L (15-37) Alanine Aminotransferase (ALT/SGPT) 58 U/L (12-78) Alkaline Phosphatase 93 U/L (45-117) Total Protein 7.2 gm/dl (6.4-8.2) Albumin 3.1 gm/dl (3.4-5.0) Lipase 133 U/L (73-393) Urine Color YELLOW Urine Appearance CLEAR (CLEAR) Urine pH 7.0 (4.5-7.5) Urine Specific [place] 1.021 (1.000-1.030) Urine Protein NEG (NEG) Urine Glucose (UA) 2+ (NEG) Urine Ketones TRACE (NEG) Urine Occult Blood NEG (NEG) Urine Nitrite NEG (NEG) Urine Bilirubin NEG (NEG) Urine Urobilinogen NEG (NEG) Urine Leukocyte Esterase NEG (NEG) Urine Test NEG (NEG) Labs reviewed by ED physician. Medications Administered Medications (Trade) Dose Ordered Sig/Angela Route Start Time Stop Time Status Last Admin Dose Admin Hydromorphone HCl (Dilaudid Inj) 1 mg NOW STAT IV 09/18/17 10:58 09/18/17 11:01 DC 09/18/17 11:19 1 MG Hydromorphone HCl (Dilaudid Inj) 1 mg NOW STAT IV 09/18/17 12:51 09/18/17 12:53 DC 09/18/17 12:56 1 MG ED Course 1055: Past medical records reviewed. The patient was evaluated in room C9. A complete history and physical examination was performed. 1058: Ordered Dilaudid Inj 1 mg IV. 1251: Ordered Dilaudid Inj 1 mg IV. 1341: Upon reexamination the patient is resting in bed. I discussed results and treatment plan with the patient. She verbalizes agreement and understanding. The patient is ready for discharge Medical Decision Differential diagnosis: Etiologies such as appendicitis, diverticulitis, PUD, biliary pathology, UTI, pancreatitis, obstruction, mesenteric ischemia, aortic pathology, infections, inflammatory bowel disease, renal colic, as well as others were entertained. This is a 32-year-old female who presents emergency department complaining of right-sided pelvic pain. Patient has a history of ovarian cysts and feels that this is the issue. I will note patient is afebrile does not have an elevation in her white blood count cell count as a normal renal profile has a normal liver profile has a normal lipase. Patient was given Dilaudid here in the emergency department. Repeat examination revealed improvement patient's symptoms. I do feel that the patient is well enough to be discharged home for follow-up with OB. Patient was in agreement with the treatment plan. Medication Reconcilliation Current Medication List: was personally reviewed by me Blood Pressure Screening Patient's blood pressure: Elevated blood pressure Blood pressure disposition: Elevated BP felt to be situational Impression Primary Impression: Pelvic pain in female Scribe Attestation The scribe's documentation has been prepared under my direction and personally reviewed by me in its entirety. I confirm that the note above accurately reflects all work, treatment, procedures, and medical decision making performed by me. Departure Information Dispostion Home / Self-Care Prescriptions Dicyclomine Hcl (BENTYL) 10 Mg Cap 10 MG PO TID for 10 Days, #30 CAP Prov: Tomas Gardner MD 09/18/17 Referrals Leon Ross D.O. (PCP) Forms HOME CARE DOCUMENTATION FORM, IMPORTANT VISIT INFORMATION, WORK / SCHOOL INSTRUCTIONS Patient Instructions My [facility] Additional Instructions You have been examined and treated today on an emergency basis only. This is not a substitute for, or an effort to provide, complete comprehensive medical care. It is impossible to recognize and treat all injuries or illnesses in a single emergency department visit. It is therefore important that you follow up closely with Dr Ross. Call as soon as possible for an appointment. Thank you for your time and consideration. I look forward to speaking with you again soon. Please don't hesitate to call us if you have any questions.
[2017-09-18] MEDS ORDERED: FLUO10CA48 PO (11:20)
[2017-09-18 11:45] LABS: BASO % 0.2 %; BASO ABS # 0.02 K/uL (0-0.2); EOS % 1.1 %; EOS ABS # 0.09 K/uL (0-0.5); HEMATOCRIT 40.2 % (37-47); HEMOGLOBIN 14.3 g/dL (12.0-16.0); IG# 0.01 K/uL (0.00-0.02); LYMPH % 21.7 %; LYMPH ABS # 1.74 K/uL (1.2-3.4); MEAN CELL VOLUME 88.7 fL (80-100); MEAN CORPUSCULAR HEMOGLOBIN 31.6 pg (25-34); MEAN CORPUSCULAR HGB CONC 35.6 g/dl (32-36); MEAN PLATELET VOLUME 9.5 fL (7.4-10.4); MONO % 5.4 %; MONO ABS # 0.43 K/uL (0.11-0.59); NEUT % 71.5 %; NEUT ABS # 5.74 K/uL (1.4-6.5); PLATELET COUNT 269 K/uL (130-400); RED CELL DISTRIBUTION WIDTH CV 12.3 % (11.5-14.5); RED CELL DISTRIBUTION WIDTH SD 39.5 fL (36.4-46.3); WHITE BLOOD COUNT 8.03 K/uL (4.8-10.8)
[2017-09-18 12:05] LABS: ALBUMIN 3.1 gm/dl (3.4-5.0); ALT/SGPT 58 U/L (12-78); BLOOD UREA NITROGEN 10 mg/dl (7-18); CALCIUM 8.8 mg/dl (8.5-10.1); CARBON DIOXIDE 26 mmol/L (21-32); CREATININE 0.98 mg/dl (0.60-1.20); GLUCOSE 196 mg/dl (70-99); LIPASE 133 U/L (73-393); POTASSIUM 3.9 mmol/L (3.5-5.1); SODIUM 137 mmol/L (136-145)
[2017-09-18 12:08] LABS: ALKALINE PHOSPHATASE 93 U/L (45-117); AST/SGOT 39 U/L (15-37); TOTAL PROTEIN 7.2 gm/dl (6.4-8.2)
--- NOTE | 2017-09-18 13:01 | DIAGNOSTIC IMAGING REPORT ---
PELVIC COMPLETE NON OB HISTORY: 32 years-old Female Pt c/o Rt pelvic pain acute right-sided pelvic pain COMPARISON: Pelvic ultrasound 04/04/2017 TECHNIQUE: Multiple real-time sonographic images of the deep pelvic structures were obtained transabdominally and transvaginally assessing grayscale appearance, color and spectral flow FINDINGS: TRANSABDOMINAL: Anteflexed uterus measures 7.0 x 3.3 x 4.7 cm and is unremarkable. Endometrium measures 0.4 cm in thickness. Right ovary measures 3.4 x 2.9 x 3.6 cm and is unremarkable with arterial inflow documented. Left ovary measures 4.6 x 3.2 x 2.8 cm and is also unremarkable measuring arterial inflow. TRANSVAGINAL: Small nabothian cyst is seen, 4 mm. Anteflexed uterus measures within normal limits. Intrauterine device appears to be appropriately positioned within the endometrial canal. The left ovary measures 3.6 x 4.3 x 3.0 cm with arterial inflow. No left adnexal mass lesions identified. Right ovary is not visualized transvaginally. No significant free pelvic fluid. IMPRESSION: 1. Unremarkable sonographic appearance of the uterus, endometrium and ovaries. 2. IUD appears to be appropriately positioned. The above report was generated using voice recognition software. It may contain grammatical, syntax or spelling errors. Electronically signed by: Alexander Bradford M.D. 09/18/2017 1:00 PM Dictated Date/Time: 09/18/2017 12:56 PM
[2017-09-18] MEDS ORDERED: DICY10CA55 PO (13:27)
[2017-09-18 13:37] VITALS: BP 151/75; PULSE 80; O2SAT 98
== END 2017-09-18 13:39 | disposition home or self-care (01) ==
LOC: C.EDB 10:43 → C.EDC 13:39
DX: R10.2 Pelvic and perineal pain (principal); F90.9 Attention-deficit hyperactivity disorder, unspecified type; I10 Essential (primary) hypertension; F31.9 Bipolar disorder, unspecified; F32.9 Major depressive disorder, single episode, unspecified; E11.9 Type 2 diabetes mellitus without complications; K21.9 Gastro-esophageal reflux disease without esophagitis; F43.10 Post-traumatic stress disorder, unspecified

== ENCOUNTER 2017-09-23 14:53 | Emergency (ER) | payer OTHER ==
[~2017-09-23] VITALS: Ht 180.3 cm; Wt 155.0 kg
[~2017-09-23 14:53] MED LIST changes: +DICY10CA55 PO; +FLUO10CA48 PO; -ONDA4TAB10 SL; -TOPI100T20 PO; -TOPI25TA99 PO
[2017-09-23 14:56] VITALS: TEMP 37.2; Ht 180.3 cm; Wt 155.0 kg
[2017-09-23] MEDS ORDERED: SPIR25TA PO (15:20)
--- NOTE | 2017-09-23 16:10 | EMERGENCY ROOM VISIT NOTE ---
History Report prepared by Apurva: Shara Caballero Under the Supervision of: Dr. Duke Crockett M.D. First contact with patient: 15:37 Chief Complaint: MENTAL HEALTH EVALUATION Stated Complaint: MENTAL BREAK DOWN History of Present Illness The patient is a 32 year old female who presents to the Emergency Room for a mental health evaluation secondary to a persistent mental breakdown that occurred earlier today. The patient states that she hitting an all time low, noting that she has not been eating or sleeping, stopped caring about a lot of things, can't concentrate, and has been feeling worthless. She reports that she has been smoking Marijuana almost every night because it is the only way she can fall asleep. She notes that she recently went through a bad romantic break up on 08/05/17. The patient states that she also found out her grandmother has cancer and reached a breaking point after her friend from brain cancer. She reports that she has been having auditory hallucinations, noting she sees a psychiatrist about every 3 months for these symptoms, who believes she is having these symptoms secondary to her bipolar disorder. The patient states that her auditory hallucinations have never told her to hurt herself or others and is more prevalent while she is trying to fall asleep. She notes some nausea and diarrhea, which she thinks might be due to a medication she takes. Source of History: patient Onset: today Position: other (mental) Quality: other (mental breakdown) Timing: other (persistent) Associated Symptoms: + chest pain, + nausea, + diarrhea Note: Associated symptoms include: not been eating or sleeping, stopped caring about a lot of things, can't concentrate, and has been feeling worthless. Review of Systems See HPI for pertinent positives and negatives. A total of ten systems were reviewed and were otherwise negative. Past Medical & Surgical Medical Problems: (1) Abdominal pain (2) Abnormal uterine bleeding (3) Abnormal uterine bleeding (4) Abnormal uterine bleeding (5) Abnormal vaginal bleeding (6) Attention deficit hyperactivity disorder (7) Back pain (8) Back pain (9) Back pain (10) Benign hypertension (11) Bipolar disorder (12) Body mass index 30+ - obesity (13) Cannabis abuse (14) Depression (15) Diabetes mellitus type 2 (16) Dysmenorrhea (17) Dysmenorrhea (18) dyspnea metabolic syndrome X (19) Gastroesophageal reflux disease (20) Headache (21) Hyperglycemia (22) Lower abdominal pain (23) Lower abdominal pain (24) Migraine (25) Migraine (26) Migraine (27) Pain, dental (28) PCOS (polycystic ovarian syndrome) (29) Polycystic ovaries (30) Posttraumatic stress disorder (31) Suicide by self-administered drug (32) Upper respiratory infection (33) Urinary tract infection (34) UTI (lower urinary tract infection) (35) UTI (lower urinary tract infection) Family History Diabetes mellitus FH: cancer FH: heart disease FH: lung disease FHx: gallbladder disease Hypertension Kidney disease Kidney stones Social History Smoking Status: Current Every Day Smoker Alcohol Use: none Drug Use: marijuana Marital Status: single Housing Status: lives with family Occupation Status: employed Current/Historical Medications Scheduled Bupropion Hcl (Bupropion Hcl Er), 150 MG PO DAILY Dicyclomine Hcl (Bentyl), 10 MG PO TID Fluoxetine (Prozac), 20 MG PO DAILY Fluoxetine (Prozac), 10 MG PO DAILY Metformin Hcl (Glucophage), 500 MG PO BIDM Methylphenidate (Ritalin), 10 MG PO BID Multiple Vitamins W/ Minerals (Biotin Plus/Calcium/Vit D), 1 TAB PO TID Spironolactone (Aldactone), 1 TAB PO BID Scheduled PRN Albuterol Hfa (Ventolin Hfa), 3 PUFFS INH Q6H PRN for SOB/Wheezing Lorazepam (Ativan), 1 MG PO DAILY PRN for Anxiety/Agitation Allergies Coded Allergies: Kiwi (Verified Allergy, Intermediate, TONGUE SWELLS, 09/23/17) Adhesives (Verified Allergy, Unknown, BLISTERS, 09/23/17) Macias Pepper (Verified Allergy, Unknown, IRRITATES THROAT, 09/23/17) GREEN PEPPERS Sumatriptan (Verified Allergy, Unknown, neck pain, 09/23/17) Ibuprofen (Verified Adverse Reaction, Severe, GI BLEED, 09/23/17) Physical Exam Vital Signs Date Time Temp Pulse Resp B/P (MAP) Pulse Ox O2 Delivery O2 Flow Rate FiO2 09/23/17 19:21 69 16 111/76 96 09/23/17 16:39 77 16 128/75 97 Room Air 09/23/17 14:56 37.2 70 16 145/93 99 Room Air Physical Exam GENERAL: Depressed affect. Tearful intermittently. Awake, alert, well-appearing , in no distress HENT: Normocephalic, atraumatic. Oropharynx unremarkable. EYES: Normal conjunctiva. Sclera non-icteric. NECK: Supple. No nuchal rigidity. FROM. No JVD. RESPIRATORY: Clear to auscultation. CARDIAC: Regular rate, normal rhythm. Extremities warm and well perfused. Pulses equal. ABDOMEN: Soft, non-distended. No tenderness to palpation. No rebound or guarding. No masses. RECTAL: Deferred. MUSCULOSKELETAL: Chest examination reveals no tenderness. The back is symmetrical on inspection without obvious abnormality. There is no CVA tenderness to palpation. No joint edema. LOWER EXTREMITIES: Calves are equal size bilaterally and non-tender. No edema. No discoloration. NEURO: Normal sensorium. No sensory or motor deficits noted. SKIN: No rash or jaundice noted. PSYCH: +depression, +auditory hallucinations (not command) denies SI/HI. Medical Decision & Procedures Laboratory Results 09/23/17 16:22 Red Blood Count 5.08, Mean Corpuscular Volume 89.0, Mean Corpuscular Hemoglobin 31.9, Mean Corpuscular Hemoglobin Concent 35.8, Mean Platelet Volume 9.7, Neutrophils (%) (Auto) 71.9, Lymphocytes (%) (Auto) 22.3, Monocytes (%) (Auto) 4.9, Eosinophils (%) (Auto) 0.5, Basophils (%) (Auto) 0.2, Neutrophils # (Auto) 9.24, Lymphocytes # (Auto) 2.86, Monocytes # (Auto) 0.63, Eosinophils # (Auto) 0.06, Basophils # (Auto) 0.02 09/23/17 16:22 Test 09/23/17 15:16 09/23/17 16:22 Urine Color YELLOW Urine Appearance CLEAR (CLEAR) Urine pH 5.0 (4.5-7.5) Urine Specific [place] 1.021 (1.000-1.030) Urine Protein NEG (NEG) Urine Glucose (UA) NEG (NEG) Urine Ketones NEG (NEG) Urine Occult Blood 1+ (NEG) Urine Nitrite NEG (NEG) Urine Bilirubin NEG (NEG) Urine Urobilinogen NEG (NEG) Urine Leukocyte Esterase TRACE (NEG) Urine WBC (Auto) 10-30 /hpf (0-5) Urine RBC (Auto) 0-4 /hpf (0-4) Urine Hyaline Casts (Auto) 1-5 /lpf (0-5) Urine Epithelial Cells (Auto) >30 /lpf (0-5) Urine Bacteria (Auto) 1+ (NEG) Urine Opiates Screen NEG (NEG) Urine Methadone, Qualitative NEG (NEG) Urine Barbiturates NEG (NEG) Urine Phencyclidine (PCP) Level NEG (NEG) Ur Amphetamine/Methamphetamine NEG (NEG) MDMA (Ecstasy) Screen POS (NEG) Urine Benzodiazepines Screen NEG (NEG) Urine Cocaine Metabolite NEG (NEG) Urine Marijuana (THC) POS (NEG) White Blood Count 12.83 K/uL (4.8-10.8) Red Blood Count 5.08 M/uL (4.2-5.4) Hemoglobin 16.2 g/dL (12.0-16.0) Hematocrit 45.2 % (37-47) Mean Corpuscular Volume 89.0 fL (80-100) Mean Corpuscular Hemoglobin 31.9 pg (25-34) Mean Corpuscular Hemoglobin Concent 35.8 g/dl (32-36) Platelet Count 264 K/uL (130-400) Mean Platelet Volume 9.7 fL (7.4-10.4) Neutrophils (%) (Auto) 71.9 % Lymphocytes (%) (Auto) 22.3 % Monocytes (%) (Auto) 4.9 % Eosinophils (%) (Auto) 0.5 % Basophils (%) (Auto) 0.2 % Neutrophils # (Auto) 9.24 K/uL (1.4-6.5) Lymphocytes # (Auto) 2.86 K/uL (1.2-3.4) Monocytes # (Auto) 0.63 K/uL (0.11-0.59) Eosinophils # (Auto) 0.06 K/uL (0-0.5) Basophils # (Auto) 0.02 K/uL (0-0.2) RDW Standard Deviation 40.3 fL (36.4-46.3) RDW Coefficient of Variation 12.5 % (11.5-14.5) Immature Granulocyte % (Auto) 0.2 % Immature Granulocyte # (Auto) 0.02 K/uL (0.00-0.02) Anion Gap 9.0 mmol/L (3-11) Est Creatinine Clear Calc Drug Dose 152.4 ml/min Estimated GFR () 100.8 Estimated GFR (Non- 87.0 BUN/Creatinine Ratio 7.6 (10-20) Calcium Level 9.1 mg/dl (8.5-10.1) Total Bilirubin 0.4 mg/dl (0.2-1) Direct Bilirubin < 0.1 mg/dl (0-0.2) Aspartate Amino Transf (AST/SGOT) 47 U/L (15-37) Alanine Aminotransferase (ALT/SGPT) 81 U/L (12-78) Alkaline Phosphatase 99 U/L (45-117) Total Protein 8.3 gm/dl (6.4-8.2) Albumin 3.6 gm/dl (3.4-5.0) Globulin 4.7 gm/dl (2.5-4.0) Albumin/Globulin Ratio 0.8 (0.9-2) Thyroid Stimulating Hormone (TSH) 2.970 uIu/ml (0.300-4.500) Ethyl Alcohol mg/dL < 3.0 mg/dl (0-3) Laboratory results reviewed by me Medications Administered Medications (Trade) Dose Ordered Sig/Angela Route Start Time Stop Time Status Last Admin Dose Admin Acetaminophen (Tylenol Tab) 1,000 mg STK-MED ONCE PO 09/23/17 17:43 09/23/17 17:44 DC 09/23/17 17:43 1,000 MG Ondansetron HCl (Zofran Odt) 4 mg STK-MED ONCE .ROUTE 09/23/17 17:43 09/23/17 17:44 DC 09/23/17 17:43 4 MG ED Course 1529: The patient was evaluated in room A12. A complete history and physical exam was performed. 190: I reevaluated the patient. Discussed results and discharge instructions: she verbalized understanding and agreement. The patient is ready for discharge. Medical Decision I reviewed the patient's past medical history, medications, and the nursing notes as described above. Differential diagnosis: Etiologies such as mood disorder, infection, hypoglycemia, electrolyte abnormalities, cardiac sources, intracerebral event, toxicologic, neurologic, as well as others were entertained. The patient is a 32 y/o woman with a pmhx BPD followed by outpatient psychiatrist and therapist presents to the emergency department with worsening depression in the setting of multiple life stressors including the of her friend to cancer per HPI. On arrival, the patient is depressed appearing, intermittently tearful but in NAD, AFVSS. Reports h/o auditory hallucinations ( not command) that her providers are aware of and believer are related to her BPD. WBC 12 nonspecific. UA dirty. Patient denies any dysuria at this time and thus we agree to wait for Ucx. Patient was medically cleared. Seen by psych CM and upon further evaluation patient was feeling improved. Patient denies SI, HI and feels comfortable following up with her outpatient providers. Findings and plan for follow-up reviewed with patient. Patient agreeable and d/c'd per discharge instructions. Medication Reconcilliation Current Medication List: was personally reviewed by me Impression Primary Impression: Depression Scribe Attestation The scribe's documentation has been prepared under my direction and personally reviewed by me in its entirety. I confirm that the note above accurately reflects all work, treatment, procedures, and medical decision making performed by me. Departure Information Dispostion Home / Self-Care Referrals No Doctor, Assigned (PCP) Forms HOME CARE DOCUMENTATION FORM, IMPORTANT VISIT INFORMATION Patient Instructions Depression Causes, Depression Counseling, ED Grief Reaction, Grief Moving Through, Grief and Loss, My [facility] Additional Instructions Please follow up with your outpatient providers this week for re-evaluation. Otherwise, your exam and lab results did not show signs of an emergent condition at this time. Return to the emergency department for worsening symptoms as described in the accompanying instructions. Work Instructions Return To Work: 1 week Additional Instructions: Please allow 1 week excuse from work as needed and thereafter as determined by her providers.
[2017-09-23 16:33] LABS: BASO % 0.2 %; BASO ABS # 0.02 K/uL (0-0.2); EOS % 0.5 %; EOS ABS # 0.06 K/uL (0-0.5); HEMATOCRIT 45.2 % (37-47); HEMOGLOBIN 16.2 g/dL (12.0-16.0); IG# 0.02 K/uL (0.00-0.02); LYMPH % 22.3 %; LYMPH ABS # 2.86 K/uL (1.2-3.4); MEAN CORPUSCULAR HEMOGLOBIN 31.9 pg (25-34); MEAN CORPUSCULAR HGB CONC 35.8 g/dl (32-36); MEAN PLATELET VOLUME 9.7 fL (7.4-10.4); MONO % 4.9 %; MONO ABS # 0.63 K/uL (0.11-0.59); NEUT % 71.9 %; NEUT ABS # 9.24 K/uL (1.4-6.5); PLATELET COUNT 264 K/uL (130-400); RED CELL DISTRIBUTION WIDTH CV 12.5 % (11.5-14.5); RED CELL DISTRIBUTION WIDTH SD 40.3 fL (36.4-46.3); WHITE BLOOD COUNT 12.83 K/uL (4.8-10.8)
[2017-09-23 17:03] LABS: ALBUMIN 3.6 gm/dl (3.4-5.0); ALT/SGPT 81 U/L (12-78); BLOOD UREA NITROGEN 7 mg/dl (7-18); CALCIUM 9.1 mg/dl (8.5-10.1); CARBON DIOXIDE 25 mmol/L (21-32); CREATININE 0.89 mg/dl (0.60-1.20); GLUCOSE 89 mg/dl (70-99); POTASSIUM 3.8 mmol/L (3.5-5.1); SODIUM 138 mmol/L (136-145)
[2017-09-23 17:14] LABS: ALKALINE PHOSPHATASE 99 U/L (45-117); AST/SGOT 47 U/L (15-37); TOTAL PROTEIN 8.3 gm/dl (6.4-8.2)
[2017-09-23] MEDS ORDERED: ONDANSETRON 4MG OD TAB ONE (17:43)
[2017-09-23] MEDS ORDERED: ACETAMINOPHEN 500 MG TAB PO ONE (17:43)
[2017-09-23 19:21] VITALS: BP 111/76; PULSE 69; O2SAT 96
== END 2017-09-23 19:22 | disposition home or self-care (01) ==
LOC: C.EDB 14:54 → C.EDA 19:22
DX: F32.9 Major depressive disorder, single episode, unspecified (principal); F90.9 Attention-deficit hyperactivity disorder, unspecified type; I10 Essential (primary) hypertension; F31.9 Bipolar disorder, unspecified; E11.9 Type 2 diabetes mellitus without complications; Z83.3 Family history of diabetes mellitus; Z82.49 Family history of ischemic heart disease and other diseases of the circulatory system; F17.200 Nicotine dependence, unspecified, uncomplicated; F12.90 Cannabis use, unspecified, uncomplicated; Z91.018 Allergy to other foods; Z88.8 Allergy status to other drugs, medicaments and biological substances

== ENCOUNTER 2017-11-11 15:13 | Emergency (ER) | payer OTHER ==
[~2017-11-11] VITALS: Ht 180.3 cm; Wt 159.4 kg
[~2017-11-11 15:13] MED LIST changes: -ACET-1256 PO; -ASPI-391 PO; -BUPR-267 PO; -DICY10CA55 PO; -GLC/500 PO; -METH10TA4 PO; -PRLSR20 PO
[2017-11-11] MEDS ORDERED: SPIR25TA PO (15:20)
[2017-11-11 15:32] VITALS: TEMP 36.7; Ht 180.3 cm; Wt 159.4 kg
--- NOTE | 2017-11-11 16:00 | DIAGNOSTIC IMAGING REPORT ---
R FOOT MIN 3 VIEWS ROUTINE HISTORY: 32 years-old Female R foot/heel pain acute right foot pain COMPARISON: Right foot radiographs 04/23/2017 TECHNIQUE: 3 views of the right foot FINDINGS: No acute fracture or dislocation. Small enthesophytes about the Achilles and plantar portions of the calcaneus. Otherwise, no significant degenerative changes. Mild dorsal forefoot soft tissue swelling. No opaque foreign body. IMPRESSION: 1. No acute fracture or dislocation. 2. Small enthesophytes about the Achilles and plantar portions of the calcaneus. The above report was generated using voice recognition software. It may contain grammatical, syntax or spelling errors. Electronically signed by: Alexander Bradford M.D. 11/11/2017 3:59 PM Dictated Date/Time: 11/11/2017 3:57 PM
[2017-11-11] MEDS ORDERED: FLUO40CA8 PO (16:02)
[2017-11-11] MEDS ORDERED: MULT-1018 PO (16:02)
[2017-11-11] MEDS ORDERED: METH10TA4 PO (17:03)
[2017-11-11 17:40] VITALS: BP 155/105; PULSE 95; O2SAT 97
[2017-11-11] MEDS ORDERED: GLC/500 PO (19:09)
--- NOTE | 2017-11-11 19:32 | EMERGENCY ROOM VISIT NOTE ---
History First contact with patient: 15:42 Chief Complaint: FOOT PAIN Stated Complaint: SEVERE PAIN IN RIGHT FOOT AT HEEL History of Present Illness The patient is a 32 year old female who presents to the Emergency Room with complaints of right foot pain for the past week. The patient complains of heel pain in triage, but complains to me about first MTP pain. The patient denies any known injury to her foot. The patient does spend a lot of time on her feet at work. The patient is employed at [employer]. She denies any prior history of significant right foot injuries, and rates her discomfort a 7 out of 10 with weightbearing. Review of Systems 10 system review was performed and was negative except for pertinent positives and negatives as indicated in history of present illness Past Medical/Surgical History Medical Problems: (1) Abdominal pain (2) Abnormal uterine bleeding (3) Abnormal uterine bleeding (4) Abnormal uterine bleeding (5) Abnormal vaginal bleeding (6) Attention deficit hyperactivity disorder (7) Back pain (8) Back pain (9) Back pain (10) Benign hypertension (11) Bipolar disorder (12) Body mass index 30+ - obesity (13) Cannabis abuse (14) Depression (15) Diabetes mellitus type 2 (16) Dysmenorrhea (17) Dysmenorrhea (18) dyspnea metabolic syndrome X (19) Gastroesophageal reflux disease (20) Headache (21) Hyperglycemia (22) Lower abdominal pain (23) Lower abdominal pain (24) Migraine (25) Migraine (26) Migraine (27) Pain, dental (28) PCOS (polycystic ovarian syndrome) (29) Polycystic ovaries (30) Posttraumatic stress disorder (31) Suicide by self-administered drug (32) Upper respiratory infection (33) Urinary tract infection (34) UTI (lower urinary tract infection) (35) UTI (lower urinary tract infection) Family History Diabetes mellitus FH: cancer FH: heart disease FH: lung disease FHx: gallbladder disease Hypertension Kidney disease Kidney stones Social History Smoking Status: Former Smoker Alcohol Use: none Drug Use: marijuana Marital Status: single Housing Status: lives with family Occupation Status: employed Current/Historical Medications Scheduled Bupropion Hcl (Bupropion Hcl Er), 150 MG PO DAILY Fluoxetine (Prozac), 40 MG PO DAILY Metformin Hcl (Glucophage), 500 MG PO BIDM Methylphenidate (Ritalin), 10 MG PO BID Multiple Vitamins W/ Minerals (Hair Skin and Nails Formu), 1 TAB PO TID Spironolactone (Aldactone), 1 TAB PO BID Scheduled PRN Albuterol Hfa (Ventolin Hfa), 3 PUFFS INH Q6H PRN for SOB/Wheezing Lorazepam (Ativan), 1 MG PO DAILY PRN for Anxiety/Agitation Physical Exam Vital Signs Date Time Temp Pulse Resp B/P (MAP) Pulse Ox O2 Delivery O2 Flow Rate FiO2 11/11/17 17:40 95 18 155/105 97 11/11/17 15:32 36.7 104 18 145/93 97 Room Air Physical Exam CONSTITUTIONAL: Morbidly obese female, alert and oriented X 3 with positive affect. HEENT: Normocephalic, atraumatic. Pupils equal, round and reactive. NECK: Full active range of motion without discomfort. MUSCULOSKELETAL: Examination of the right foot shows dependent edema without pretibial pitting edema. Pedal pulses are intact. Patient has general tenderness to palpation along the plantar first MTP region and plantar fascia. She also has mild tenderness to palpation through the heel. No focal tenderness through the medial calcaneus or Achilles tendon. No tenderness to palpation across the dorsal midfoot. INTEGUMENTARY: No rash or other significant dermatologic conditions noted. NEUROLOGIC: Right foot and toes are sensory intact. Medical Decision & Procedures ER Provider Diagnostic Interpretation: My interpretation of right foot x-ray shows a calcaneal spur, otherwise no other acute fractures or dislocations noted. Radiologist report is as follows: R FOOT MIN 3 VIEWS ROUTINE HISTORY: 32 years-old Female R foot/heel pain acute right foot pain COMPARISON: Right foot radiographs 04/23/2017 TECHNIQUE: 3 views of the right foot FINDINGS: No acute fracture or dislocation. Small enthesophytes about the Achilles and plantar portions of the calcaneus. Otherwise, no significant degenerative changes. Mild dorsal forefoot soft tissue swelling. No opaque foreign body. IMPRESSION: 1. No acute fracture or dislocation. 2. Small enthesophytes about the Achilles and plantar portions of the calcaneus. ED Course Patient history and physical exam were performed. Nurse's notes were reviewed. Vital signs were reviewed, showing an elevated blood pressure 145/93. X-rays of the right foot were normal. The patient was encouraged to keep her weight off of the foot as much as possible. The patient was offered crutches, but reports that she cannot use them at work, and would not use them anyway. She was encouraged to intermittently apply ice and elevate the foot for swelling. Tylenol as needed for pain. She was instructed to follow-up with [facility] if symptoms are not improving. Patient was happy with plan of care , voiced understanding of all discharge instructions, and rated her discomfort a 5 out of 10 at the conclusion of my exam. Medical Decision Medication Reconcilliation Current Medication List: was personally reviewed by me Blood Pressure Screening Patient's blood pressure: Elevated blood pressure Blood pressure disposition: Did not require urgent referral Impression Primary Impression: Right foot pain Departure Information Dispostion Home / Self-Care Condition GOOD Referrals Eddie Nicholas D.O. Forms HOME CARE DOCUMENTATION FORM, IMPORTANT VISIT INFORMATION Patient Instructions My [facility] [employer] Additional Instructions Intermittently apply ice and elevate foot for swelling and pain. Minimize weight on foot until you are reevaluated by [facility] ( Dr. Nicholas) - call office for an appointment.
[2017-11-11] MEDS ORDERED: BUPR-267 PO (21:42)
== END 2017-11-11 17:40 | disposition home or self-care (01) ==
LOC: C.EDB 15:16 → C.EDD 17:40
DX: M79.671 Pain in right foot (principal); I10 Essential (primary) hypertension; E11.9 Type 2 diabetes mellitus without complications; E28.2 Polycystic ovarian syndrome; F90.9 Attention-deficit hyperactivity disorder, unspecified type; F32.9 Major depressive disorder, single episode, unspecified; Z91.5 Personal history of self-harm; Z87.440 Personal history of urinary (tract) infections; Z87.891 Personal history of nicotine dependence; Z83.3 Family history of diabetes mellitus; Z82.49 Family history of ischemic heart disease and other diseases of the circulatory system; Z84.1 Family history of disorders of kidney and ureter; Z79.84 Long term (current) use of oral hypoglycemic drugs; Z79.899 Other long term (current) drug therapy

== ENCOUNTER 2017-12-14 08:07 | Emergency (ER) | payer OTHER ==
[~2017-12-14] VITALS: Ht 180.3 cm; Wt 160.4 kg
[~2017-12-14 08:07] MED LIST changes: +BUPR-267 PO; -FLUO10CA48 PO; -FLUO20CA35 PO; +FLUO40CA8 PO; +GLC/500 PO; +METH10TA4 PO; +MULT-1018 PO; -MULT-67 PO; +SPIR25TA PO
[2017-12-14 08:13] VITALS: TEMP 36.7; Ht 180.3 cm; Wt 160.4 kg
[2017-12-14] MEDS ORDERED: SODIUM CHLORIDE 0.9% 1000ML 1,000 ML IV STA (08:46)
[2017-12-14] MEDS ORDERED: ONDANSETRON INJ 2 MG/ML 2 ML VIAL IV STA (08:46)
[2017-12-14] MEDS ORDERED: OPTIRAY 320 IV PRN (09:00)
[2017-12-14] MEDS ORDERED: ACETAMINOPHEN IV 100 ML IV ONE (09:00)
[2017-12-14 09:22] LABS: BASO % 0.3 %; BASO ABS # 0.02 K/uL (0-0.2); EOS % 1.6 %; EOS ABS # 0.12 K/uL (0-0.5); IG# 0.04 K/uL (0.00-0.02); LYMPH % 29.8 %; LYMPH ABS # 2.18 K/uL (1.2-3.4); MEAN CELL VOLUME 86.8 fL (80-100); MEAN CORPUSCULAR HGB CONC 35.7 g/dl (32-36); MEAN PLATELET VOLUME 9.7 fL (7.4-10.4); MONO % 5.6 %; MONO ABS # 0.41 K/uL (0.11-0.59); NEUT % 62.2 %; NEUT ABS # 4.55 K/uL (1.4-6.5); PLATELET COUNT 180 K/uL (130-400); RED CELL DISTRIBUTION WIDTH CV 12.6 % (11.5-14.5); WHITE BLOOD COUNT 7.32 K/uL (4.8-10.8)
[2017-12-14] MEDS ORDERED: PRLSR20 PO (09:31)
[2017-12-14 09:38] LABS: ALBUMIN 3.1 gm/dl (3.4-5.0); CALCIUM 8.2 mg/dl (8.5-10.1); CREATININE 0.82 mg/dl (0.60-1.20); POTASSIUM 3.9 mmol/L (3.5-5.1)
[2017-12-14 09:41] LABS: TOTAL PROTEIN 7.6 gm/dl (6.4-8.2)
[2017-12-14] MEDS ORDERED: MoRPHine SULFATE 4 MG/ML 1 ML CARP\\VIAL IV STA (10:17)
--- NOTE | 2017-12-14 10:38 | DIAGNOSTIC IMAGING REPORT ---
ABDOMEN AND PELVIS CT WITH IV CONTRAST CT DOSE: 1958.06 mGy.cm HISTORY: Acute right-sided abdominal pain with history of prior cholecystectomy R sided abd pain; s/p shane TECHNIQUE: Multiaxial CT images of the abdomen and pelvis were performed following the use of intravenous contrast. A dose lowering technique was utilized adhering to the principles of ALARA. COMPARISON STUDY: CT abdomen and pelvis 04/08/2016. FINDINGS: Lung bases are generally clear. There is no pneumatosis or pneumoperitoneum identified. Imaged inferior cardiac chambers are unremarkable. Prior cholecystectomy. Hepatic steatosis with hepatomegaly. No intrahepatic biliary ductal dilation. Spleen is mildly enlarged, 13.7 cm. Pancreas and right adrenal gland are unremarkable. Indeterminate soft tissue attenuating 1.1 cm lesion of the lateral limb left adrenal gland is unchanged, indeterminate however too testicular benign. Kidneys, ureters and bladder are unremarkable. Intrauterine device appears to be in appropriate positioning within the uterus. Changes of the bilateral ovaries, 3.4 cm on the right and 3.6 cm on the left. No aortic aneurysm or pathologic adenopathy. IVC appears patent. There is no bowel obstruction or focal bowel wall thickening identified. Normal appendix. No mesenteric edema or ascites. Soft tissues are unremarkable. The bones appear intact. No significant degenerative changes. IMPRESSION: 1. No acute intra-abdominal or intrapelvic abnormality identified. 2. No bowel obstruction or focal bowel wall thickening. Normal appendix. 3. Hepatosplenomegaly with hepatic steatosis. 4. Cystic changes about the bilateral ovaries. 5. Prior cholecystectomy. Electronically signed by: Alexander Bradford M.D. 12/14/2017 10:37 AM Dictated Date/Time: 12/14/2017 10:31 AM
[2017-12-14 11:21] VITALS: BP 142/89; PULSE 70; O2SAT 97
--- NOTE | 2017-12-14 14:23 | EMERGENCY ROOM VISIT NOTE ---
ED Visit Note First contact with patient: 08:35 Chief Complaint: Right-sided abdominal pain. History of Present Illness: Ms. Myles is a 32 year-old white female who ambulates into the ED complaining of right sided abdominal pain. Historically patient reports she has a history of GERD, polycystic ovary syndrome, lower GI bleed, and she is status post cholecystectomy and D&C. Patient reports a gradual onset of right side abdominal pain that started approximately 2 months ago. Since that time her pain has been constant and waxes and wanes in intensity. She describes a underscoring constant achy pain and rates her discomfort 6/10. Then she reports over the last 2 weeks she has had intermittent sharp pain with prominence in the right upper quadrant that increases her pain to a level of 9/10. She cannot ascertain the site of her pain but reports it is completely on the right side of the abdomen from the upper portion of the right upper quadrant down into the right pelvic area. Her pain also extends into the right flank area. She reports movement at the waist and palpation increases her discomfort. She has not identified any alleviating factors related to the pain. She has been using acetaminophen multiple times throughout the day with minimal relief of her discomfort; she does report that she is taking up to 5000 mg per day. Associated with the pain there has been a decreased appetite, nausea with a couple episodes of vomiting and diarrhea; she does report that she has had diarrhea from her cholecystectomy many years ago but that has not increased in intensity. Patient denies fevers, chills, sweats, skin eruptions, skin color changes, upper respiratory tract symptoms, shortness of breath, chest pain, constipation , rectal bleeding, black/tarry stools, urinary symptoms, hematuria. Review of Systems: As noted above in history of present illness. All body systems were reviewed and found to be negative as noted above. Past Medical History: As previously noted and unspecified skin disorder, bronchitis, asthma, pneumonia, frequent urinary tract infections, kidney stones. Current Medications: Medications Dose Route/Sig Max Daily Dose Days Date Category Prilosec (Omeprazole) 20 Mg Capcr 20 Mg PO TID 12/14/17 Reported Hair Skin and Nails Formu (Multiple Vitamins W/ Minerals) 1 Tab Tab 1 Tab PO TID 11/11/17 Reported Prozac (Fluoxetine HCl) 40 Mg Cap 40 Mg PO DAILY 11/11/17 Reported Aldactone (Spironolactone) Unknown Strength Tab 1 Tab PO BID 09/23/17 Reported Ventolin Hfa (Albuterol) 200 Puffs/92486 Mcg Aers 3 Puffs INH Q6H PRN 11/24/16 Reported Ativan (Lorazepam) 1 Mg Tab 1 Mg PO DAILY PRN 02/05/16 Reported Bupropion Hcl Er (Bupropion Hcl) 150 Mg Tab 150 Mg PO DAILY 09/07/14 Reported Glucophage (Metformin Hcl) 500 Mg Tab 500 Mg PO BIDM 08/23/13 Reported Ritalin (Methylphenidate HCl) 10 Mg Tab 10 Mg PO BID 10/06/11 Reported Allergies to Medications: Advil and Imitrex. Social History: Patient is currently employed; she feels safe in her home environment; she denies tobacco and alcohol use. Physical Examination: Vital Signs: Date Time Temp Pulse Resp B/P (MAP) Pulse Ox O2 Delivery O2 Flow Rate FiO2 12/14/17 11:21 70 16 142/89 97 12/14/17 10:37 72 12/14/17 10:12 72 15 160/98 98 Room Air 12/14/17 08:13 36.7 97 18 175/114 96 Room Air GENERAL: 32-year-old female in mild to moderate distress due to pain, chronically ill-appearing, afebrile and hemodynamically stable. NEUROLOGICAL: Awake, alert and oriented to person, place and time. Answering questions appropriately and following commands. Normal gait. Good hand eye coordination. SKIN: Warm, dry and pink. No soft tissue eruptions or trauma noted. HEENT: Atraumatic and normocephalic. PERRLA. Sclera white and conjunctiva pink. Oral cavity moist and pink. Pharynx is nonerythematous or edematous. Speech normal. No lymphadenopathy. Trachea midline. No jugular venous distention. BACK: No tenderness over the bony spine. Mild right sided CVA tenderness. THORAX: Lungs sounds are clear to auscultation and equal bilaterally with symmetrical chest wall. No wheezing, rales or rhonchi. No crepitus, tenderness , subcutaneous air or deformities noted. HEART: Regular rate and rhythm. No gallops, rubs or murmurs are appreciated. ABDOMEN: Obese and soft with moderate tenderness in the right upper quadrant and mild tenderness in the mid and lower quadrant. . Positive bowel sounds in all quadrants. No guarding, rigidity or organomegaly. EXTREMITIES: Moves all extremities well on command and with purpose. All distal neurovascular statuses are intact and equal bilaterally. ED Course: Patient is assessed as noted above. Patient's medication list was reviewed. Laboratory Testing: Test 12/14/17 09:10 Range/Units White Blood Count 7.32 4.8-10.8 K/uL Red Blood Count 4.84 4.2-5.4 M/uL Hemoglobin 15.0 12.0-16.0 g/dL Hematocrit 42.0 37-47 % Mean Corpuscular Volume 86.8 80-100 fL Mean Corpuscular Hemoglobin 31.0 25-34 pg Mean Corpuscular Hemoglobin Concent 35.7 32-36 g/dl Platelet Count 180 130-400 K/uL Mean Platelet Volume 9.7 7.4-10.4 fL Neutrophils (%) (Auto) 62.2 % Lymphocytes (%) (Auto) 29.8 % Monocytes (%) (Auto) 5.6 % Eosinophils (%) (Auto) 1.6 % Basophils (%) (Auto) 0.3 % Neutrophils # (Auto) 4.55 1.4-6.5 K/uL Lymphocytes # (Auto) 2.18 1.2-3.4 K/uL Monocytes # (Auto) 0.41 0.11-0.59 K/uL Eosinophils # (Auto) 0.12 0-0.5 K/uL Basophils # (Auto) 0.02 0-0.2 K/uL RDW Standard Deviation 40.0 36.4-46.3 fL RDW Coefficient of Variation 12.6 11.5-14.5 % Immature Granulocyte % (Auto) 0.5 % Immature Granulocyte # (Auto) 0.04 0.00-0.02 K/uL Urine Color YELLOW Urine Appearance CLEAR CLEAR Urine pH 5.0 4.5-7.5 Urine Specific [place] 1.024 1.000-1.030 Urine Protein NEG NEG Urine Glucose (UA) 2+ NEG Urine Ketones NEG NEG Urine Occult Blood NEG NEG Urine Nitrite NEG NEG Urine Bilirubin NEG NEG Urine Urobilinogen NEG NEG Urine Leukocyte Esterase NEG NEG Urine Test NEG NEG Sodium Level 137 136-145 mmol/L Potassium Level 3.9 3.5-5.1 mmol/L Chloride Level 107 98-107 mmol/L Carbon Dioxide Level 26 21-32 mmol/L Anion Gap 4.0 3-11 mmol/L Blood Urea Nitrogen 8 7-18 mg/dl Creatinine 0.82 0.60-1.20 mg/dl Est Creatinine Clear Calc Drug Dose 168.8 ml/min Estimated GFR () 111.3 Estimated GFR (Non- 96.0 BUN/Creatinine Ratio 9.8 10-20 Random Glucose 225 70-99 mg/dl Calcium Level 8.2 8.5-10.1 mg/dl Total Bilirubin 0.4 0.2-1 mg/dl Direct Bilirubin 0.1 0-0.2 mg/dl Aspartate Amino Transf (AST/SGOT) 59 15-37 U/L Alanine Aminotransferase (ALT/SGPT) 89 12-78 U/L Alkaline Phosphatase 117 45-117 U/L Total Protein 7.6 6.4-8.2 gm/dl Albumin 3.1 3.4-5.0 gm/dl Lipase 226 73-393 U/L IV Contrast Abdominal/Pelvic CT: Was reviewed by myself and read by the radiologist and shows no acute intra-abdominal or intrapelvic abnormalities, no bowel obstruction or focal bowel wall thickening. Normal-appearing appendix. Hepatosplenomegaly with steatosis, cystic changes about the bilateral ovaries. Prior cholecystectomy. Patient was hydrated with normal saline and she was initially given 4 mg of Zofran IV and 1 g of acetaminophen IV. Patient was reassessed multiple times during her stay in the emergency department. After her return from the radiology department she felt like her pain increased in intensity and she was given 4 mg of morphine IV. Patient's case was reviewed with Dr. Franco; we agreed on diagnostic approach, treatment, disposition and plan. Patient was educated about today's findings and instructed on her treatment plan ; she verbalized understanding and agreement with this plan. Clinical Impression: Right sided abdominal pain. Decision-Making: Initially my differential diagnosis I considered bowel obstruction, hepatitis, pancreatitis, kidney stone, pyelonephritis, perforated viscus, constipation and other causes. Disposition: Patient discharged to home in stable condition; prior to departure she was reassessed and subjectively reported she was feeling much better. Plan: Patient was encouraged to use 650 mg of acetaminophen every 6 hours as needed for pain; I informed her she should not increase this dose because of her elevated LFTs. Patient was encouraged to stay well-hydrated with increased clear fluids. Patient did inform me she had prescriptions for Phenergan and Zofran at home and she was encouraged to use those as prescribed for nausea/vomiting. Patient was encouraged to have close follow-up with her family physician for recheck, reevaluation of her liver enzymes and her blood sugar. Additionally she was encouraged to speak to her family doctor about possible referral to gastroenterology. Patient was encouraged return the ED for worsening pain, fevers, bloody vomitus , bloody stools or any new/concerning symptoms.
== END 2017-12-14 11:22 | disposition home or self-care (01) ==
LOC: C.EDB 08:08 → C.EDA 11:22
DX: R10.9 Unspecified abdominal pain (principal); K21.9 Gastro-esophageal reflux disease without esophagitis; E28.2 Polycystic ovarian syndrome; Z90.49 Acquired absence of other specified parts of digestive tract; J45.909 Unspecified asthma, uncomplicated; Z87.01 Personal history of pneumonia (recurrent); Z87.440 Personal history of urinary (tract) infections; Z87.442 Personal history of urinary calculi; Z79.899 Other long term (current) drug therapy; Z79.84 Long term (current) use of oral hypoglycemic drugs; Z88.8 Allergy status to other drugs, medicaments and biological substances

== ENCOUNTER 2017-12-27 20:55 | Emergency (ER) | payer OTHER ==
[~2017-12-27] VITALS: Ht 180.3 cm; Wt 160.2 kg
[~2017-12-27 20:55] MED LIST changes: -BUPR-267 PO; +PRLSR20 PO
[2017-12-27 20:59] VITALS: TEMP 36.8; Ht 180.3 cm; Wt 160.2 kg
[2017-12-27] MEDS ORDERED: METOCLOPRAMIDE HCL INJ 5 MG/ML 2 ML VIAL IV. STA (21:18)
--- NOTE | 2017-12-27 21:19 | EMERGENCY ROOM VISIT NOTE ---
History Report prepared by Apurva: Philip Hernandez Under the Supervision of: Dr. Tomas Gardner M.D. First contact with patient: 21:14 Chief Complaint: ABDOMINAL PAIN Stated Complaint: SEVERE ABDOMINAL PAIN History of Present Illness The patient is a 32 year old female who presents to the Emergency Room with complaints of constant abdominal pain beginning three days ago. The patient states that she reached across her bed three days and developed a sharp, ripping , pain in her abdomen. She notes that her pain worsens when she lies down and when she gets up. She reports that she last took Tylenol an hour ago with no relief of her pain. Source of History: patient Onset: three days ago Position: abdomen Quality: sharp, other (ripping) Timing: constant Modifying Factors (Worsening): other (lying down, getting up) Review of Systems See HPI for pertinent positives & negatives. A total of 10 systems reviewed and were otherwise negative. Past Medical & Surgical Medical Problems: (1) Abdominal pain (2) Abnormal uterine bleeding (3) Abnormal uterine bleeding (4) Abnormal uterine bleeding (5) Abnormal vaginal bleeding (6) Attention deficit hyperactivity disorder (7) Back pain (8) Back pain (9) Back pain (10) Benign hypertension (11) Bipolar disorder (12) Body mass index 30+ - obesity (13) Cannabis abuse (14) Depression (15) Diabetes mellitus type 2 (16) Dysmenorrhea (17) Dysmenorrhea (18) dyspnea metabolic syndrome X (19) Gastroesophageal reflux disease (20) Headache (21) Hyperglycemia (22) Lower abdominal pain (23) Lower abdominal pain (24) Migraine (25) Migraine (26) Migraine (27) Pain, dental (28) PCOS (polycystic ovarian syndrome) (29) Polycystic ovaries (30) Posttraumatic stress disorder (31) Suicide by self-administered drug (32) Upper respiratory infection (33) Urinary tract infection (34) UTI (lower urinary tract infection) (35) UTI (lower urinary tract infection) Family History Diabetes mellitus FH: cancer FH: heart disease FH: lung disease FHx: gallbladder disease Hypertension Kidney disease Kidney stones Social History Smoking Status: Former Smoker Alcohol Use: none Drug Use: marijuana Marital Status: single Housing Status: lives with family Occupation Status: unemployed Current/Historical Medications Scheduled Acetaminophen (Tylenol), 1,000 MG PO PRN UD Bupropion Hcl (Bupropion Hcl Er), 150 MG PO DAILY Fluoxetine (Prozac), 40 MG PO DAILY Metformin Hcl (Glucophage), 500 MG PO BIDM Methylphenidate (Ritalin), 10 MG PO BID Multiple Vitamins W/ Minerals (Hair Skin and Nails Formu), 1 TAB PO TID Nitrofurantoin Monohyd Macrocr (Macrobid), 100 MG PO BID Omeprazole (Prilosec), 20 MG PO TID Spironolactone (Aldactone), 1 TAB PO BID Scheduled PRN Albuterol Hfa (Ventolin Hfa), 3 PUFFS INH Q6H PRN for SOB/Wheezing Lorazepam (Ativan), 1 MG PO DAILY PRN for Anxiety/Agitation Allergies Coded Allergies: Kiwi (Verified Allergy, Intermediate, TONGUE SWELLS, 12/14/17) Adhesives (Verified Allergy, Unknown, BLISTERS, 12/14/17) Macias Pepper (Verified Allergy, Unknown, IRRITATES THROAT, 12/14/17) GREEN PEPPERS Sumatriptan (Verified Allergy, Unknown, neck pain, 12/14/17) Ibuprofen (Verified Adverse Reaction, Severe, GI BLEED, 12/14/17) Physical Exam Vital Signs Date Time Temp Pulse Resp B/P (MAP) Pulse Ox O2 Delivery O2 Flow Rate FiO2 12/27/17 23:41 93 18 128/90 99 12/27/17 22:49 93 20 157/89 96 Room Air 12/27/17 20:59 36.8 89 18 153/86 96 Room Air Physical Exam GENERAL: Awake, alert, well-appearing, in no acute distress HENT: Normocephalic, atraumatic. Oropharynx unremarkable. EYES: Normal conjunctiva. Sclera non-icteric. NECK: Supple. No nuchal rigidity. FROM. No JVD. RESPIRATORY: Clear to auscultation. CARDIAC: Regular rate, normal rhythm. Extremities warm and well perfused. Pulses equal. ABDOMEN: Soft, non-distended. No tenderness to palpation. No rebound or guarding. No masses. RECTAL: Deferred. MUSCULOSKELETAL: Chest examination reveals no tenderness. The back is symmetrical on inspection without obvious abnormality. There is no CVA tenderness to palpation. No joint edema. LOWER EXTREMITIES: Calves are equal size bilaterally and non-tender. No edema. No discoloration. NEURO: Normal sensorium. No sensory or motor deficits noted. SKIN: No rash or jaundice noted. Medical Decision & Procedures ER Provider Diagnostic Interpretation: Radiology results as stated below per my review and radiologist interpretation: PA CHEST RADIOGRAPH AND UPRIGHT AND SUPINE AP RADIOGRAPHS OF THE ABDOMEN FINDINGS: Lung volumes are normal. Lungs are clear. No pneumothorax or pleural effusion is noted. Cardiac size is normal. Mediastinal contours are normal. There is no evidence for pulmonary edema. There is no free air. Intrauterine device is noted. Bowel gas pattern is normal. There are cholecystectomy clips. IMPRESSION: 1. No free air or evidence of bowel obstruction. 2. No acute cardiopulmonary findings. Electronically signed by: Les Toro M.D. 12/27/2017 10:52 PM Laboratory Results 12/27/17 21:30 Red Blood Count 4.76, Mean Corpuscular Volume 86.3, Mean Corpuscular Hemoglobin 31.1, Mean Corpuscular Hemoglobin Concent 36.0, Mean Platelet Volume 9.9, Neutrophils (%) (Auto) 59.9, Lymphocytes (%) (Auto) 32.0, Monocytes (%) (Auto) 6.0, Eosinophils (%) (Auto) 1.6, Basophils (%) (Auto) 0.2, Neutrophils # (Auto) 5.21, Lymphocytes # (Auto) 2.79, Monocytes # (Auto) 0.52, Eosinophils # (Auto) 0.14, Basophils # (Auto) 0.02 12/27/17 21:30 Test 12/27/17 21:30 12/27/17 22:00 White Blood Count 8.71 K/uL (4.8-10.8) Red Blood Count 4.76 M/uL (4.2-5.4) Hemoglobin 14.8 g/dL (12.0-16.0) Hematocrit 41.1 % (37-47) Mean Corpuscular Volume 86.3 fL (80-100) Mean Corpuscular Hemoglobin 31.1 pg (25-34) Mean Corpuscular Hemoglobin Concent 36.0 g/dl (32-36) Platelet Count 205 K/uL (130-400) Mean Platelet Volume 9.9 fL (7.4-10.4) Neutrophils (%) (Auto) 59.9 % Lymphocytes (%) (Auto) 32.0 % Monocytes (%) (Auto) 6.0 % Eosinophils (%) (Auto) 1.6 % Basophils (%) (Auto) 0.2 % Neutrophils # (Auto) 5.21 K/uL (1.4-6.5) Lymphocytes # (Auto) 2.79 K/uL (1.2-3.4) Monocytes # (Auto) 0.52 K/uL (0.11-0.59) Eosinophils # (Auto) 0.14 K/uL (0-0.5) Basophils # (Auto) 0.02 K/uL (0-0.2) RDW Standard Deviation 39.7 fL (36.4-46.3) RDW Coefficient of Variation 12.4 % (11.5-14.5) Immature Granulocyte % (Auto) 0.3 % Immature Granulocyte # (Auto) 0.03 K/uL (0.00-0.02) Anion Gap 8.0 mmol/L (3-11) Est Creatinine Clear Calc Drug Dose 141.2 ml/min Estimated GFR () 89.7 Estimated GFR (Non- 77.4 BUN/Creatinine Ratio 7.5 (10-20) Calcium Level 8.8 mg/dl (8.5-10.1) Total Bilirubin 0.3 mg/dl (0.2-1) Direct Bilirubin 0.1 mg/dl (0-0.2) Aspartate Amino Transf (AST/SGOT) 48 U/L (15-37) Alanine Aminotransferase (ALT/SGPT) 83 U/L (12-78) Alkaline Phosphatase 113 U/L (45-117) Total Protein 7.1 gm/dl (6.4-8.2) Albumin 3.1 gm/dl (3.4-5.0) Lipase 108 U/L (73-393) Beta-Hydroxybutyric Acid 1.27 mg/dL (0.2-2.81) Urine Color YELLOW Urine Appearance CLOUDY (CLEAR) Urine pH 5.0 (4.5-7.5) Urine Specific [place] 1.030 (1.000-1.030) Urine Protein NEG (NEG) Urine Glucose (UA) 3+ (NEG) Urine Ketones TRACE (NEG) Urine Occult Blood NEG (NEG) Urine Nitrite NEG (NEG) Urine Bilirubin NEG (NEG) Urine Urobilinogen NEG (NEG) Urine Leukocyte Esterase NEG (NEG) Urine WBC (Auto) 10-30 /hpf (0-5) Urine RBC (Auto) 0-4 /hpf (0-4) Urine Hyaline Casts (Auto) 1-5 /lpf (0-5) Urine Epithelial Cells (Auto) >30 /lpf (0-5) Urine Bacteria (Auto) 1+ (NEG) Urine Test NEG (NEG) Labs reviewed by ED physician. Medications Administered Medications (Trade) Dose Ordered Sig/Angela Route Start Time Stop Time Status Last Admin Dose Admin Dicyclomine HCl (Bentyl Inj) 20 mg NOW ONCE IM 12/27/17 21:30 12/27/17 21:31 DC 12/27/17 21:56 20 MG Metoclopramide HCl (Reglan Inj) 10 mg NOW STAT IV. 12/27/17 21:18 12/27/17 21:20 DC 12/27/17 21:56 10 MG Sodium Chloride 1,000 ml @ 999 mls/hr Q1H1M STAT IV 12/27/17 22:17 12/27/17 23:17 DC 12/27/17 22:45 999 MLS/HR Ketorolac Tromethamine (Toradol Inj) 30 mg NOW STAT IV 12/27/17 22:17 12/27/17 22:18 DC 12/27/17 22:45 30 MG Nitrofurantoin Macrocrystals (Macrobid Cap) 100 mg ONE STAT PO 12/27/17 22:24 12/27/17 22:26 DC 12/27/17 22:59 100 MG ED Course 2116: Past medical records reviewed. The patient was evaluated in room A12. A complete history and physical examination was performed. 2300: I reevaluated and updated the patient. We had a long conversation about getting her sugar under control. 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 2320: Upon reexamination the patient is stable. I discussed results and treatment plan with the patient. She verbalizes agreement and understanding. The patient is ready for discharge. Medical Decision Differential diagnosis: Etiologies such as appendicitis, diverticulitis, PUD, biliary pathology, UTI, pancreatitis, obstruction, mesenteric ischemia, aortic pathology, infections, inflammatory bowel disease, renal colic, as well as others were entertained. This is a 32-year-old female who presents emergency department complaining of right flank pain. I will note that the patient has been here multiple visits for the similar pain. She was given Bentyl here in the emergency department along with Toradol. Patient's sugar was found to be in the 300s. I will discuss this with patient stress she needs follow-up with her primary care physician and make sure that this is under control. Patient was given a normal saline bolus for the hyperglycemia here in the emergency department along with Toradol. She does appear to have a UTI for this reason the patient was placed on Macrobid. I feel that the patient can be safely discharged home. Serial abdominal examinations were performed and the patient in the emergency department at no time the patient exhibited surgical abdomen. Patient was in agreement with the treatment plan. Medication Reconcilliation Current Medication List: was personally reviewed by me Blood Pressure Screening Patient's blood pressure: Elevated blood pressure Blood pressure disposition: Referred to PCP Impression Primary Impression: UTI (lower urinary tract infection) Additional Impressions: Acute abdominal pain Hyperglycemia Scribe Attestation The scribe's documentation has been prepared under my direction and personally reviewed by me in its entirety. I confirm that the note above accurately reflects all work, treatment, procedures, and medical decision making performed by me. Departure Information Dispostion Home / Self-Care Prescriptions Nitrofurantoin Monohyd Macrocr (Macrobid) 100 Mg Cap 100 MG PO BID for 7 Days, #14 CAP Prov: Tomas Gardner MD 12/27/17 Referrals Leon Ross D.O. (PCP) Forms HOME CARE DOCUMENTATION FORM, IMPORTANT VISIT INFORMATION Patient Instructions My [facility] Additional Instructions Need follow up with Dr Ross for hyperglycemia Culture results are usually available in approx 48 hours You have been examined and treated today on an emergency basis only. This is not a substitute for, or an effort to provide, complete comprehensive medical care. It is impossible to recognize and treat all injuries or illnesses in a single emergency department visit. It is therefore important that you follow up closely with [facility]. Call as soon as possible for an appointment. Thank you for your time and consideration. I look forward to speaking with you again soon. Please don't hesitate to call us if you have any questions. Problem Qualifiers
[2017-12-27] MEDS ORDERED: DICYCLOMINE HCL 10 MG/ML 2 ML AMP IM ONE (21:30)
[2017-12-27] MEDS ORDERED: BUPR-267 PO (21:42)
[2017-12-27 21:43] LABS: BASO % 0.2 %; BASO ABS # 0.02 K/uL (0-0.2); EOS % 1.6 %; EOS ABS # 0.14 K/uL (0-0.5); HEMATOCRIT 41.1 % (37-47); HEMOGLOBIN 14.8 g/dL (12.0-16.0); IG# 0.03 K/uL (0.00-0.02); LYMPH ABS # 2.79 K/uL (1.2-3.4); MEAN CELL VOLUME 86.3 fL (80-100); MEAN CORPUSCULAR HEMOGLOBIN 31.1 pg (25-34); MEAN PLATELET VOLUME 9.9 fL (7.4-10.4); MONO ABS # 0.52 K/uL (0.11-0.59); NEUT % 59.9 %; NEUT ABS # 5.21 K/uL (1.4-6.5); PLATELET COUNT 205 K/uL (130-400); RED CELL DISTRIBUTION WIDTH CV 12.4 % (11.5-14.5); RED CELL DISTRIBUTION WIDTH SD 39.7 fL (36.4-46.3); WHITE BLOOD COUNT 8.71 K/uL (4.8-10.8)
[2017-12-27 22:04] LABS: ALBUMIN 3.1 gm/dl (3.4-5.0); CALCIUM 8.8 mg/dl (8.5-10.1); CREATININE 0.98 mg/dl (0.60-1.20); POTASSIUM 3.6 mmol/L (3.5-5.1); TOTAL PROTEIN 7.1 gm/dl (6.4-8.2)
[2017-12-27] MEDS ORDERED: ACET-1256 PO (22:06)
[2017-12-27] MEDS ORDERED: KETOROLAC TROMETHAMINE 30 MG/ML VIAL IV STA (22:17)
[2017-12-27] MEDS ORDERED: SODIUM CHLORIDE 0.9% 1000ML 1,000 ML IV STA (22:17)
[2017-12-27] MEDS ORDERED: NITROFURANTOIN MONOHYDRATE 100 MG CAP PO STA (22:24)
--- NOTE | 2017-12-27 22:53 | DIAGNOSTIC IMAGING REPORT ---
PA CHEST RADIOGRAPH AND UPRIGHT AND SUPINE AP RADIOGRAPHS OF THE ABDOMEN CLINICAL HISTORY: Right lower quadrant abdominal pain. COMPARISON STUDY: Chest radiograph September 17, [address] of the abdomen and pelvis December 14, 2017. FINDINGS: Lung volumes are normal. Lungs are clear. No pneumothorax or pleural effusion is noted. Cardiac size is normal. Mediastinal contours are normal. There is no evidence for pulmonary edema. There is no free air. Intrauterine device is noted. Bowel gas pattern is normal. There are cholecystectomy clips. IMPRESSION: 1. No free air or evidence of bowel obstruction. 2. No acute cardiopulmonary findings. Electronically signed by: Les Toro M.D. 12/27/2017 10:52 PM Dictated Date/Time: 12/27/2017 10:51 PM
[2017-12-27] MEDS ORDERED: NITR-5 PO (23:02)
[2017-12-27 23:41] VITALS: BP 128/90; PULSE 93; O2SAT 99
[2017-12-31] MEDS ORDERED: DOXY1TAB6 PO (20:58)
== END 2017-12-27 23:41 | disposition home or self-care (01) ==
LOC: C.EDB 20:56 → C.EDA 23:41
DX: N39.0 Urinary tract infection, site not specified (principal); R10.9 Unspecified abdominal pain; R73.9 Hyperglycemia, unspecified; I10 Essential (primary) hypertension; F90.9 Attention-deficit hyperactivity disorder, unspecified type; F31.9 Bipolar disorder, unspecified; E66.9 Obesity, unspecified; F12.90 Cannabis use, unspecified, uncomplicated; F32.9 Major depressive disorder, single episode, unspecified; E11.9 Type 2 diabetes mellitus without complications; E28.2 Polycystic ovarian syndrome; Z87.891 Personal history of nicotine dependence; Z91.018 Allergy to other foods; Z88.8 Allergy status to other drugs, medicaments and biological substances

== ENCOUNTER 2020-12-06 07:35 | Observation (INO) ==
--- NOTE | 2020-11-18 15:31 | PAT Medication Instructions ---
Medication Instructions Date of Service November 18, 2020 Home Medications Medication Instructions Recorded ondansetron 4 mg PO Q6 PRN #14 tab 10/27/20 Victoza 2-Eddie 1.8 mg SUBCUT QAM albuterol sulfate [Ventolin HFA] 2 puff INHALATION QID PRN methylphenidate HCl [Ritalin] 10 mg PO AMPM omeprazole 20 mg PO BID fluoxetine [Prozac] 80 mg PO QAM metformin 1,000 mg PO BID Jardiance 10 mg PO QAM multivitamin with minerals [Hair,Skin and Nails] 1 tab PO QAM propranolol 10 mg PO BID bupropion HCl [Wellbutrin SR] 150 mg PO AMPM clonazepam [Klonopin] 0.5 mg PO DAILY PRN Medical Marijuana 0 mg INHALATION DIRECTED PRN lamotrigine 50 mg PO AMPM tizanidine [Zanaflex] 4 mg PO Q6H PRN acetaminophen [Tylenol Extra Strength] 1,000 mg PO Q6H PRN ondansetron 4 mg PO Q6 PRN diphenhydramine HCl [Benadryl] 25 mg PO DAILY STOP taking 2 weeks before surgery (or as soon as possible if surgery is within 2 weeks) multivitamin with minerals [Hair,Skin and Nails] 1 tab PO QAM DO NOT take the morning of surgery methylphenidate HCl [Ritalin] 10 mg PO AMPM metformin 1,000 mg PO BID Jardiance 10 mg PO QAM Medical Marijuana 0 mg INHALATION DIRECTED PRN tizanidine [Zanaflex] 4 mg PO Q6H PRN diphenhydramine HCl [Benadryl] 25 mg PO DAILY Take morning of surgery With a small sip of water, OTHERWISE NOTHING TO EAT OR DRINK AFTER MIDNIGHT: Victoza 2-Eddie 1.8 mg SUBCUT QAM albuterol sulfate [Ventolin HFA] 2 puff INHALATION QID PRN (use if needed; please bring rescue inhaler with you to hospital day of surgery if possible) omeprazole 20 mg PO BID fluoxetine [Prozac] 80 mg PO QAM propranolol 10 mg PO BID bupropion HCl [Wellbutrin SR] 150 mg PO AMPM clonazepam [Klonopin] 0.5 mg PO DAILY PRN (if needed) lamotrigine 50 mg PO AMPM acetaminophen [Tylenol Extra Strength] 1,000 mg PO Q6H PRN (okay to take up to 4 hours prior to surgery if needed) ondansetron 4 mg PO Q6 PRN (if needed) Take evening before surgery albuterol sulfate [Ventolin HFA] 2 puff INHALATION QID PRN (if needed) methylphenidate HCl [Ritalin] 10 mg PO AMPM omeprazole 20 mg PO BID metformin 1,000 mg PO BID propranolol 10 mg PO BID bupropion HCl [Wellbutrin SR] 150 mg PO AMPM clonazepam [Klonopin] 0.5 mg PO DAILY PRN (if needed) Medical Marijuana 0 mg INHALATION DIRECTED PRN (if needed) lamotrigine 50 mg PO AMPM tizanidine [Zanaflex] 4 mg PO Q6H PRN (if needed) acetaminophen [Tylenol Extra Strength] 1,000 mg PO Q6H PRN (if needed) ondansetron 4 mg PO Q6 PRN (if needed) Other Notes If you have any questions please call us at [phone] or [phone] or [phone] or [phone]
--- NOTE | 2020-11-23 12:23 | Anesthesiology Consultation ---
Date of Service November 23, 2020 Assessment & Plan (1) Encounter for pre-operative examination: - COVID screening: Per assessment on 11/23: Travel screen negative, no known COVID-19 positive contacts or current COVID-19 related symptoms. Surgeon arrangi ng preop COVID testing. Awaiting results. - S/P EGD with biopsies (04/23/19): MAC at [facility] - Check BSG, test AM DOS Chart Review Chart Review: Acceptable Risk for Surgery and Patient seen in Pre Admission Testing Teaching & Discussion Pre-Anesthesia Teaching/Discussion Notes: Instructed NPO after midnight before surgery,except medications with 15 cc of water. Medication instructions provided according to the PAT guidelines. History Surgery Operation Date: 12/06/20 10:35 Proposed Procedures p Tonsillectomy - Jamaal Turk MD Height/Weight Height: 6 ft Weight: 150.6 kg Allergies Allergy/AdvReac Type Severity Reaction Status Date / Time adhesive Allergy Intermediate Blistering Verified 11/21/20 12:13 kiwi Allergy Intermediate Tongue Verified 11/21/20 12:13 swelling ibuprofen AdvReac Severe GI bleed Verified 11/21/20 12:13 sumatriptan AdvReac Intermediate Increases Verified 11/21/20 12:13 neck pain and stiffness Macias Pepper Allergy Intermediate Throat Uncoded 11/21/20 12:13 irritation Medications Home Medications Medication Instructions Recorded Confirmed Last Taken Victoza 2-Eddie 1.8 mg SUBCUT QAM 04/30/18 11/18/20 10/26/20 albuterol sulfate [Ventolin HFA] 2 puff INHALATION QID PRN 04/30/18 11/18/20 06/18/20 methylphenidate HCl [Ritalin] 10 mg PO AMPM 04/30/18 11/18/20 10/26/20 omeprazole 20 mg PO BID 04/30/18 11/18/20 10/26/20 fluoxetine [Prozac] 80 mg PO QAM 07/02/18 11/18/20 10/26/20 metformin 1,000 mg PO BID 11/28/18 11/18/20 10/26/20 Jardiance 10 mg PO QAM 02/28/19 11/18/20 10/26/20 multivitamin with minerals 1 tab PO QAM 04/13/19 11/18/20 10/26/20 [Hair,Skin and Nails] propranolol 10 mg PO BID 04/13/19 11/18/20 10/26/20 bupropion HCl [Wellbutrin SR] 150 mg PO AMPM 11/19/19 11/18/20 10/26/20 clonazepam [Klonopin] 0.5 mg PO DAILY PRN 02/06/20 11/18/20 09/24/20 21:30 Medical Marijuana 0 mg INHALATION DIRECTED PRN 04/03/20 11/18/20 09/25/20 lamotrigine 50 mg PO AMPM 04/03/20 11/18/20 10/26/20 tizanidine [Zanaflex] 4 mg PO Q6H PRN 06/18/20 11/18/20 09/24/20 acetaminophen [Tylenol Extra 1,000 mg PO Q6H PRN 10/27/20 11/18/20 10/26/20 Strength] 1000 mg ondansetron 4 mg PO Q6 PRN #14 tab 10/27/20 11/18/20 Unknown diphenhydramine HCl [Benadryl] 25 mg PO DAILY 11/18/20 11/18/20 Unknown Past Medical History Medical History Anxiety Asthma Exercise induced (inhaler PRN) Chronic back pain Depression Diabetes mellitus, type 2 NIDDM Dysmenorrhea Fatty liver Migraine Morbid obesity Osteoarthritis PCOS (polycystic ovarian syndrome) Sleep apnea CPAP ordered (does not use) Symptoms consistent with irritable bowel syndrome Temporomandibular joint disorder + clicking, occasional locking* Exercise / Class Metabolic Activity II 4-5 Yardwork/Stairs/Walk up hill Past Family History Family History Aunt Family history of diabetes mellitus Uncle Family history of diabetes mellitus Grandfather Hearing loss Hypertension Cancer Heart disease Grandmother Hypertension Stroke Cancer Asthma Mother Cancer Other Allergies No family history of adverse response to anesthesia No family history of bleeding disorder Past Surgical History Surgical History History of cholecystectomy History of colonoscopy History of dilatation and curettage History of esophagogastroduodenoscopy (EGD) EGD with biopsies (9/19/19): MAC sedation at [facility] History of hemorrhoidectomy History of tooth extraction History of wisdom tooth extraction Past Anesthesia History No Hx of Anesthesia Complications and No Family Hx of Anesthesia Complications (except sister had seizure reaction) History of PONV No Hx of PONV and No Hx of Motion Sickness Social History Smoking Status: Never smoker tobacco type: e-cigarettes Smoking cigarettes per day: 4-6/day Do You Dip or Chew Tobacco: No Hx Alcohol Use: No Alcohol type: wine and hard liquor alcohol intake frequency: holidays/special occasions only Hx Substance Use: Yes substance use type: marijuana Last Used Substance: Hours (ago) Last Used Substance Other:: [facility] Review of Systems Patient denies chest pain, shortness of breath, fever, chills, cough, wheezing, palpitations. Physical Exam Vital Signs VITALS BP 134/86 P 88 TEMP 98.4 SP02 96%RA RESP 18 PHYSICAL Full cervical extension range of motion. Full TMJ range of motion. TMD 4 finger breaths Mallampati Score 4 Dentition: missing molars, several chipped including upper front Lungs: clear throughout to auscultation Cardiac: regular rate and rhythm, no murmurs noted Spine: normal Carotid arteries: negative bruit Extremities: no edema Thick neck Testing Laboratory Results 11/23/20 12:58 11/23/20 12:58 Hemoglobin A1c 6.1 % (4.5-5.6) H 11/23/20 12:58 Electrocardiogram Date: 06/18/20 NSR at 88bpm. No significant change compared to 04/03/20 EKG per jewelry polisher review. *Poor data quality. Chest X-Ray Date: 06/18/20 Findings: + NAD
[2020-11-23 13:15] LABS: Basophils # (auto) 0.03 K/uL (0-0.2); Basophils % (auto) 0.4 %; Eosinophils # (auto) 0.25 K/uL (0-0.5); Hematocrit (blood only) 42.3 % (37-47); Hemoglobin 14.5 g/dL (12.0-16.0); Immature Granulocytes # (auto) 0.03 K/uL (0.00-0.02); Immature Granulocytes % (auto) 0.4 %; Lymphocytes # (auto) 1.88 K/uL (1.2-3.4); Lymphocytes % (auto) 22.6 %; Mean Corpuscular Hemoglobin 30.7 pg (25-34); Mean Corpuscular Hgb Conc 34.3 g/dL (32-36); Mean Corpuscular Volume 89.6 fL (80-100); Mean Platelet Volume 9.4 fL (7.4-10.4); Monocytes # (auto) 0.31 K/uL (0.11-0.59); Monocytes % (auto) 3.7 %; Neutrophils # (auto) 5.81 K/uL (1.4-6.5); Neutrophils % (auto) 69.9 %; Platelet Count 272 K/uL (130-400); RDW Coefficient of Variation 12.5 % (11.5-14.5); RDW Standard Deviation 40.9 fL (36.4-46.3); Red Blood Count 4.72 M/uL (4.2-5.4); White Blood Count 8.31 K/uL (4.8-10.8)
[2020-11-23 13:25] LABS: Estimated Average Glucose 128 mg/dl; Hemoglobin A1C 6.1 % (4.5-5.6)
[2020-11-23 14:18] LABS: BUN Creatinine Ratio 13.4 (10-20); Calcium 8.8 mg/dl (8.5-10.1); Creatinine Clr Calc Pharmacy 175.3 ml/min; Est GFR (African American) 121.4; Est GFR (Non-African American) 104.7; Potassium 4.6 mmol/L (3.5-5.1)
[~2020-12-06 07:35] MED LIST changes: -ATV/1 PO; -FLUO40CA8 PO; -GLC/500 PO; +LR 15ML/HR IV SCH; -METH10TA4 PO; -MULT-1018 PO; -PRLSR20 PO; -SPIR25TA PO; -VNTHFA/IN INH
[2020-12-06] MEDS ORDERED: MIDAZOLAM HCL 1 MG/ML 2ML VIAL ONE (08:11)
[2020-12-06] MEDS ORDERED: fentaNYL citrate 100 MCG/2 ML VIAL ONE ×2 (08:11→10:19)
--- NOTE | 2020-12-06 08:51 | History & Physical Bridge Note ---
Date of Service December 06, 2020 History & Physical Bridge Note I have examined the patient, reviewed the History & Physical and in the interval since the performance of the History & Physical I have noted the following changes of clinical significance: no changes noted Plan for tonsillectomy today Patient/parent is aware of COVID-19 risk. Patient is asymptomatic of any COVID-19 symptoms. Patient has had preoperative testing for COVID-19 which was negative.
[2020-12-06] MEDS ORDERED: LIDOCAINE 2% JELLY 5 ML TUBE ONE (08:52)
[2020-12-06] MEDS ORDERED: ONDANSETRON INJ 2 MG/ML 2 ML VIAL ONE (09:40)
[2020-12-06] MEDS ORDERED: ROCURONIUM BROMIDE 10 MG/ML 5 ML VIAL IV ONE (09:40)
[2020-12-06] MEDS ORDERED: ALBUTEROL HFA INHALER 8.5 GM ONE (09:40)
[2020-12-06] MEDS ORDERED: SUCCINYLCHOLINE CHLORIDE 20 MG/ML 10 ML VIAL IV ONE (09:40)
[2020-12-06] MEDS ORDERED: PROPOFOL IV EMULSION 10 MG/ML 20 ML VIAL IV ONE ×2 (09:40→09:49)
[2020-12-06] MEDS ORDERED: DEXAMETHASONE SOD INJ 4 MG/ML VIAL ONE (09:40)
[2020-12-06] MEDS ORDERED: ePHEDrine sulfate 50 MG/ML AMP IV PRN (09:44)
[2020-12-06] MEDS ORDERED: ATROPINE SULFATE 0.1 MG/ML 10ML SYR IV PRN (09:44)
[2020-12-06] MEDS ORDERED: fentaNYL citrate 100 MCG/2 ML VIAL IV PRN (09:44)
[2020-12-06] MEDS ORDERED: ONDANSETRON INJ 2 MG/ML 2 ML VIAL IV PRN ×2 (09:44→10:28)
--- NOTE | 2020-12-06 10:27 | Post Operative Brief Note ---
PG Immediate Post Op with CF Date of Surgery December 06, 2020 Pre & Post Diagnosis Operation Date: 12/06/20 08:45 Pre-Op Diagnosis: Tonsillith Post-Op Diagnosis: Tonsillith I identified the patient and participated in the time-out.: Yes Procedure Operation Date: 12/06/20 08:45 Actual Procedures p Tonsillectomy(Bilateral) - Jamaal Turk MD Surgeon Jamaal Turk MD Offset Plate Maker none Estimated Blood Loss 5 Findings See Below 1. 3+ cryptic tonsils Specimens Specimen Description: Permanent specimen: A. Right tonsil B. Left tonsil
[2020-12-06] MEDS ORDERED: tiZANidine HCL 4 MG TABLET PO PRN (10:33)
[2020-12-06] MEDS ORDERED: ALBUTEROL HFA 8 GM INHALER INH PRN (10:33)
[2020-12-06] MEDS ORDERED: PROMETHAZINE HCL 12.5 MG in SODIUM CHLORIDE 0.9% 50 ML IV STA (10:54)
[2020-12-06] MEDS ORDERED: PROMETHAZINE HCL 6.25 MG in SODIUM CHLORIDE 0.9% 50 ML IV STA (11:43)
[2020-12-06] MEDS ORDERED: ACETAMINOPHEN 1,000 MG/100 ML VIAL IV STA (11:44)
[2020-12-06] MEDS ORDERED: ACETAMINOPHEN 1000 MG/100 ML IV IV ONE (11:46)
[2020-12-06] MEDS: SODIUM CHLORIDE 0.9% 1000ML 1,000 ML IV SCH (12:54)
[2020-12-06] MEDS ORDERED: PHARMACY GLYCEMIC MGMT CONSULT PRN (13:30)
--- NOTE | 2020-12-06 13:41 | Pharmacy Report ---
Pharmacy Glycemic Short Note 2 - Date of Service December 06, 2020 - Glycemic Short BSG Results (Last 24 hours): 12/06/20 12/06/20 07:53 10:47 POC Glucose 136 H 168 H OUTPATIENT ANTIDIABETIC REGIMEN: * Jardiance * Victoza * Metformin * A1c = 6.1% on 11/23/20 ASSESSMENT: * 35yo T2DM female with excellent outpatient control per recent A1c. No changes needed at DC. * Pt is maintained on oral & non-insulin SQ antidiabetic agents as an outpatient * Oral agents are not recommended for inpatient use d/t drug interactions, changing PO intake, and difficulty titrating for acute hyper/hypoglycemia. ADA recommends re-initiating outpatient oral agents 1-2 days prior to discharge if/when appropriate if they were held on admission. * Will hold oral agents for admission and utilize SQ basal bolus insulin regimen which is the recommended regimen for inpatient glycemic control. * Pt received IV Dexamethasone intraoperative which will cause steroid induced hyperglycemia. Will add a one time dose of weight based NPH to cover the steroid hyperglycemia. Will use adjusted body weight rather than total body weight to prevent over-dosage. * Start weight based SQ NovoLog per CF/CR to replace outpatient antidiabetic agents on hold for admission. * Titrate based on BSG trends. PLAN FOR INPATIENT GLYCEMIC CONTROL: * Hold outpatient diabetes medications * Basal insulin/Steroid induced hyperglycemia * NPH 30 units (0.3 units/kg adjusted body weight) SQ x 1 dose * Will use 0.3 instead of 0.4 units/kg since PO intake is somewhat uncertain based on the nature of the surgery. * Bolus insulin * NovoLog per scale ACHS or Q6hrs while NPO * Goal Range: Low 110 mg/dL - High 140 mg/dL * Correction Factor: 15 mg/dL/unit * Nutritional / Prandial insulin per carb ratio of 1 unit per 6 grams CHO consumed
[2020-12-06] MEDS ORDERED: GLUCAGON FOR INJ 1 MG VIAL IM PRN (13:45)
[2020-12-06] MEDS ORDERED: GLUCOSE 10 TABS/TUBE PO PRN (13:45)
[2020-12-06] MEDS ORDERED: CARBOHYDRATES FOR HYPOGLYCEMIA PO PRN (13:45)
[2020-12-06] MEDS ORDERED: DEXTROSE 50% 50 ML SYRINGE IV PRN (13:45)
[2020-12-06] MEDS ORDERED: GLUCOSE 40% GEL 15 GM TUBE PO PRN (13:45)
[2020-12-06] MEDS ORDERED: NovoLIN-N (NPH) PER UNIT CHARGE SQ ONE (13:45)
--- NOTE | 2020-12-06 14:08 | Anesthesiology Progress Note ---
Date of Service December 06, 2020 Anesthesia Post Procedure Vital Signs Vital Signs: Temp Pulse Pulse Pulse Resp BP BP 12/06/20 13:44 36.6 C 70 16 131/88 12/06/20 12:56 80 16 136/94 12/06/20 12:25 36.2 C L 76 16 133/92 12/06/20 12:15 36.3 C L 66 16 140/95 12/06/20 12:05 61 18 141/90 H 12/06/20 11:55 77 14 149/96 H 12/06/20 11:45 68 14 162/89 H 12/06/20 11:35 36.3 C L 66 16 165/99 H 12/06/20 11:25 72 20 176/104 H 12/06/20 11:15 71 16 160/92 H 12/06/20 11:05 67 18 161/91 H 12/06/20 10:55 67 20 187/87 H 12/06/20 10:45 36.0 C L 89 20 182/101 H 12/06/20 08:22 36.9 C 82 16 136/78 Pulse Ox 12/06/20 13:44 93 12/06/20 12:56 96 12/06/20 12:25 93 12/06/20 12:15 93 12/06/20 12:05 95 12/06/20 11:55 94 12/06/20 11:45 94 12/06/20 11:35 94 12/06/20 11:25 95 12/06/20 11:15 96 12/06/20 11:05 94 12/06/20 10:55 93 12/06/20 10:45 93 12/06/20 08:22 97 Pain Intensity Throat: Pain Intensity: 8 Head: Pain Intensity: 8 Transfer of Care Handoff Completed per policy Notes Mental Status: alert / awake / arousable and participated in evaluation Patient Amnestic to Procedure: Yes Nausea / Vomiting: adequately controlled Pain: adequately controlled Airway Patency, RR, SpO2: stable & adequate BP & HR: stable & adequate Hydration State: stable & adequate Anesthetic Complications: no major complications apparent and Pt Satisfied with anesthetic care
[2020-12-06] MEDS: INSULIN ASPART 100 UNITS/ML 3 ML PEN SC SCH ×3 (14:55→21:09)
[2020-12-06] MEDS: ACETAMINOPHEN 325 MG TAB PO SCH ×2 (14:59→18:37)
[2020-12-06] MEDS: oxyCODONE HCL IR 5 MG TAB (IMMEDIATE RELEASE) PO PRN ×2 (15:02→20:07)
--- NOTE | 2020-12-06 15:04 | Operative Report (OR) ---
DATE OF OPERATION: 12/06/2020 PREOPERATIVE DIAGNOSES: 1. Chronic tonsillitis. 2. Recurrent tonsilliths. 3. Severe obstructive sleep apnea. POSTOPERATIVE DIAGNOSES: 1. Chronic tonsillitis. 2. Recurrent tonsilliths. 3. Severe obstructive sleep apnea. PROCEDURE: Tonsillectomy. SURGEON: Dr. Jamaal Turk. ANESTHESIA: General orotracheal. ESTIMATED BLOOD LOSS: 5 mL. INTRAOPERATIVE FINDINGS: 3+ cryptic tonsils bilaterally. SPECIMENS: 1. Right tonsil. 2. Left tonsil. COMPLICATIONS: None. INDICATIONS FOR THE PROCEDURE: The patient is a 35-year-old female with a history of chronic tonsillitis and recurrent tonsilliths, as well as severe obstructive sleep apnea with an AHI of 36 on PSG in 2013. She was seen in the office and noted to have 3+ cryptic tonsils bilaterally. A tonsillectomy in the operating room was offered and the patient elected to proceed with surgery. The risks and benefits of the procedure were discussed in detail. Informed consent was obtained. A preprocedure COVID test was negative. DETAILS OF THE PROCEDURE: The patient was identified in the preoperative holding area and brought back to the operating room. She was placed supine on the operating room table. After the successful induction of general orotracheal anesthesia, the head of the bed was turned 90 degrees. A shoulder roll was placed. The patient was prepped and draped in the usual fashion for tonsillectomy. A surgical timeout was performed. The patient's neck was gently extended and a McIvor mouth gag was placed in the oral cavity and used to expose the oropharynx. It was suspended on a Paula stand. The tonsils were noted to be 3+ bilaterally with deep crypts. The FiO2 was confirmed to be below 30%. The right tonsil was addressed first. It was grasped with an Allis clamp and retracted medially. Electrocautery was used to carefully dissect the tonsil free from the tonsillar fossa, taking care to preserve the anterior and posterior pillars. The tonsil itself was quite inflamed. Prophylactic cauterization of the superior and inferior pole was performed. The tonsil was then passed off the table for permanent pathology. Attention was then turned to the left tonsil, which was grasped with a curved Allis clamp and retracted medially. Electrocautery was used to carefully dissect the tonsil free from the tonsillar fossa, taking care to preserve the anterior and posterior pillars. The tonsil again was quite inflamed. The tonsil was removed in entirety and passed off the table for permanent pathology. The superior and inferior poles were prophylactically cauterized. There were multiple prominent vessels, which were cauterized as well. The oral cavity and oropharynx were then irrigated with copious saline and suctioned clear. Adequate hemostasis was noted. An orogastric tube was used to decompress the stomach and removed from the patient. Approximately, 1 mL of 2% topical lidocaine jelly was applied to the bilateral tonsillar fossae. The McIvor mouth gag was taken out of suspension and removed from the patient's oral cavity. No lip or dental injuries were noted. The patient was turned over to the anesthesia team and extubated without difficulty. She was taken to the PACU in good condition. I was present and performed the entire procedure myself. I attest to the content of the Intraoperative Record and any orders documented therein. Any exceptions are noted below. MORENO
[2020-12-06] MEDS: lamoTRIgine 25 MG TAB PO SCH ×2 (16:04→20:03)
[2020-12-06] MEDS: METHYLPHENIDATE HCL 10 MG TABLET PO SCH (16:04)
[2020-12-06] MEDS: buPROPion SR 150 MG TABCR PO SCH (16:05)
[2020-12-06] MEDS ORDERED: HYDROmorphone INJ 0.5 MG/0.5 ML SYR IV STA (17:21)
[2020-12-06] MEDS: PROPRANOLOL HCL 10 MG TAB PO SCH (20:02)
[2020-12-06] MEDS ORDERED: metFORMIN HCL ER 500 MG TABCR PO SCH (21:00)
[2020-12-06] MEDS: PANTOprazole 40 MG TAB PO SCH (21:16)
[2020-12-07] MEDS: ACETAMINOPHEN 325 MG TAB PO SCH ×2 (00:14→05:40)
[2020-12-07] MEDS: oxyCODONE HCL IR 5 MG TAB (IMMEDIATE RELEASE) PO PRN ×3 (00:42→09:42)
[2020-12-07] MEDS: SODIUM CHLORIDE 0.9% 1000ML 1,000 ML IV SCH (07:11)
[2020-12-07] MEDS: buPROPion SR 150 MG TABCR PO SCH (08:05)
[2020-12-07] MEDS: PANTOprazole 40 MG TAB PO SCH (08:05)
[2020-12-07] MEDS: lamoTRIgine 25 MG TAB PO SCH (08:05)
[2020-12-07] MEDS: PROPRANOLOL HCL 10 MG TAB PO SCH (08:05)
[2020-12-07] MEDS: METHYLPHENIDATE HCL 10 MG TABLET PO SCH (08:14)
[2020-12-07] MEDS ORDERED: FLUoxetine HCL 20 MG CAP PO SCH (09:00)
[2020-12-07] MEDS ORDERED: diphenhydrAMINE Capsule 25 MG CAP PO SCH (09:00)
[2020-12-07] MEDS ORDERED: NON-FORMULARY MEDICATION (Liraglutide [Victoza 2-Pak] 0.6 mg/0.1 mL (18 mg/3 mL) Pen Injec SQ SCH (09:00)
--- NOTE | 2020-12-07 09:13 | Discharge Summary (DS) ---
DATE OF ADMISSION: 12/06/2020. DATE OF DISCHARGE: 12/07/2020. ADMITTING PHYSICIAN: Dr. Jamaal Turk. ADMITTING DIAGNOSES: Severe obstructive sleep apnea, chronic tonsillitis, tonsilliths. PROCEDURE: Tonsillectomy 12/06/2020. DIET: Soft diet x2 weeks. ACTIVITY: Reduced activity x2 weeks. BATHING: No restrictions. DRIVING: No driving while on narcotic pain medication. DISCHARGE MEDICATIONS: The patient will resume all home medications with the exception of multivitamin and acetaminophen at 1000 mg p.o. q. 6 hours. Additionally, she will take acetaminophen 650 mg q. 6 hours and oxycodone 5 mg q. 4 hours as needed for pain. Prescriptions were sent to her pharmacy. PHYSICAL EXAMINATION: GENERAL: On the day of discharge, the patient is well nourished and well developed and in no acute distress. VITAL SIGNS: She is afebrile with stable vital signs. Oxygen levels are above 92% on room air. There is no trismus. HEENT: Oropharynx is clear with healing eschars in the bilateral tonsillar fossae without evidence of clot or active bleeding. She is managing secretions easily. Nonlabored respirations. No stridor. HOSPITAL COURSE: The patient is a 35-year-old female who presented to the hospital for tonsillectomy for severe obstructive sleep apnea, chronic tonsillitis, recurrent tonsilliths. There were no intraoperative complications. She was admitted postoperatively for observation given her severe sleep apnea. She was maintained on continuous pulse ox overnight and there were no desaturations. Her hospital course was uncomplicated. She was tolerating good p.o. intake and her pain was controlled with oral medications. She was stable for discharge on postop day 1. On the day of discharge, she was ambulating and voiding spontaneously. She had no active bleeding on exam. FOLLOWUP: The patient will follow up in 4-6 weeks or sooner if needed.
[2020-12-07] MEDS: INSULIN ASPART 100 UNITS/ML 3 ML PEN SC SCH (09:17)
== END 2020-12-07 10:06 | disposition home or self-care (01) ==
LOC: ASU 07:35 → 3W 07:35

== ENCOUNTER 2024-03-06 12:44 | Inpatient (IN) ==
[2024-03-06 13:22] LABS: Basophils # (auto) 0.03 K/uL (0.00-0.20); Basophils % (auto) 0.3 %; Eosinophils # (auto) 0.06 K/uL (0.00-0.50); Eosinophils % (auto) 0.5 %; Hematocrit (blood only) 37.1 % (37.0-47.0); Hemoglobin 12.2 g/dl (12.0-16.0); Immature Granulocytes # (auto) 0.05 K/uL (0.01-0.20); Immature Granulocytes % (auto) 0.4 %; Lymphocytes # (auto) 1.48 K/uL (1.20-3.40); Lymphocytes % (auto) 13.2 %; Mean Corpuscular Hemoglobin 27.2 pg (25.0-34.0); Mean Corpuscular Hgb Conc 32.9 g/dL (32.0-36.0); Mean Corpuscular Volume 82.8 fL (80.0-100.0); Mean Platelet Volume 9.4 fL (9.4-12.4); Monocytes # (auto) 0.87 K/uL (0.11-0.59); Monocytes % (auto) 7.8 %; Neutrophils # (auto) 8.68 K/uL (1.40-6.50); Neutrophils % (auto) 77.8 %; Platelet Count 378 K/uL (130-400); RDW Coefficient of Variation 16.4 % (11.5-14.5); Red Blood Count 4.48 M/uL (4.20-5.40); White Blood Count 11.17 K/ul (4.8-10.8)
--- NOTE | 2024-03-06 13:25 | Emergency Department Note ---
History of Present Illness General Chief complaint: Swelling/Edema to Extremity Stated complaint: left leg swollen, painful Time Seen by Provider: 03/06/24 13:10 Source: patient, RN notes reviewed and old records reviewed (01/19/2022-[employer] office visit for PCOS) Mode of arrival: ambulatory Limitations: no limitations History of Present Illness Maximum Pain Intensity: 9 This patient is 39-year-old female who was diagnosed with cellulitis at her doctor's office yesterday put on doxycycline, comes in here with increasing pain she says she woke up this morning was 6 times worse she says it hurts upon palpation and when it dangles off the bed. No history of blood clots no trauma she does pick at her skin and has multiple lesions and has cellulitis from this before. She has had some nausea no emesis. Denies she has chronic back pain she said she took 3 Tylenol and 3 ibuprofen for pain earlier x 1. Tactilely she felt like she had a fever. She is felt lightheaded. She says her blood sugars been doing well lately as her last A1c was 5.4. She also has history of mental health illness and says she has been stable lately and has had no overdose suicidal or homicidal ideation Home Medications Medication Instructions Recorded Confirmed Type albuterol sulfate 90 mcg/actuation 2 puff inhalation QID PRN Wheezing 04/30/18 03/06/24 History aerosol inhaler (Ventolin HFA) methylphenidate HCl 10 mg tablet 10 mg PO BID 04/30/18 03/06/24 History (Ritalin) omeprazole 20 mg delayed 20 mg PO DAILY PRN Heartburn 04/30/18 03/06/24 History release,disintegrating tablet fluoxetine 40 mg capsule (Prozac) 80 mg PO QAM 07/02/18 03/06/24 History metformin 500 mg tablet,extended 1,000 mg PO BID 11/28/18 03/06/24 History release 24 hr multivitamin with minerals 1 tab PO QAM 04/13/19 03/06/24 History (Hair,Skin and Nails tablet) propranolol 10 mg tablet 10 mg PO BID PRN Anxiety 04/13/19 03/06/24 History clonazepam 0.5 mg tablet (Klonopin) 0.5 mg PO DAILY PRN Anxiety 02/06/20 03/06/24 History Medical Marijuana 0 mg inhalation DIRECTED PRN 04/03/20 03/06/24 History Anxiety lamotrigine 25 mg tablet 50 mg PO BID 04/03/20 03/06/24 History ondansetron 4 mg disintegrating 4 mg PO Q6 PRN nausea and vomiting 10/27/20 03/06/24 Rx tablet #14 tabs diphenhydramine HCl 25 mg capsule 25 mg PO HS PRN Insomnia 11/18/20 03/06/24 History (Benadryl) acetaminophen 500 mg tablet 500 mg PO Q6H PRN Pain 12/30/21 03/06/24 History (Tylenol Extra Strength) biotin 1 mg capsule 1 mg PO DAILY 01/25/22 03/06/24 History loratadine 10 mg tablet (Claritin) 10 mg PO DAILY PRN ALLERGY RELIEF 01/25/22 03/06/24 History ibuprofen 600 mg tablet 600 mg PO Q6H PRN Other 03/09/23 03/06/24 History tizanidine 4 mg tablet 4 mg PO Q6H PRN Other 03/09/23 03/06/24 History bupropion HCl 200 mg tablet,12 hr 200 mg PO DAILY 03/06/24 03/06/24 History sustained-release dulaglutide 1.5 mg/0.5 mL 1.5 mg subcut WK 03/06/24 03/06/24 History subcutaneous pen injector (Trulicity) gabapentin 300 mg capsule 300 mg PO HS 03/06/24 03/06/24 History trazodone 300 mg tablet 300 mg PO HS 03/06/24 03/06/24 History Allergies Allergy/AdvReac Type Severity Reaction Status Date / Time adhesive Allergy Intermediate Blistering Verified 03/06/24 13:40 kiwi Allergy Intermediate Tongue Verified 03/06/24 13:40 swelling gluten Allergy Mild Rash, Verified 03/06/24 13:40 nausea (with large amounts) ibuprofen AdvReac Severe GI bleed Verified 03/06/24 13:40 sumatriptan AdvReac Intermediate Increases Verified 03/06/24 13:40 neck pain and stiffness Macias Pepper Allergy Intermediate Throat Uncoded 03/06/24 13:40 irritation Past Med/Surg History Problem List (Updated 03/06/24 @ 19:48 by Simon Spencer MD) Not currently (Acute) Left leg pain (Acute) Cellulitis of left leg (Acute) Hidradenitis (Chronic) Asthma (Chronic) Exercise induced (inhaler PRN) Cholecystectomy planned Anxiety (Chronic) Depression (Chronic) Morbid obesity with BMI of 45.0-49.9, adult (Chronic) Tonsillith Mouth pain Encounter for pre-operative examination Dysmenorrhea (Chronic) Sleep apnea (Chronic) CPAP ordered (DEVICE RECALLED/NOT USING RIGHT NOW) Migraine (Chronic) Diabetes mellitus, type 2 (Chronic) Chronic back pain (Chronic) PCOS (polycystic ovarian syndrome) (Chronic) Medical History ADHD Degenerative disc disease Arthritis Kidney lesion Heartburn Agoraphobia Post traumatic stress disorder Anxiety and depression History of COVID-19 08/2021 > FEVER/COUGH/LOSS OF TASTE, SMELL *RESOLVED Exercise-induced asthma ALLERGY INDUCED ASTHMA>NO INHALER USED RECENTLY Encounter for pre-operative examination Morbid obesity Osteoarthritis Fatty liver Symptoms consistent with irritable bowel syndrome Temporomandibular joint disorder + clicking, occasional locking* Surgical History History of tonsillectomy History of hemorrhoidectomy X 2 History of dilatation and curettage History of cholecystectomy History of esophagogastroduodenoscopy (EGD) EGD with biopsies (04/23/19): MAC sedation at [facility] History of colonoscopy History of tooth extraction History of wisdom tooth extraction Family History Aunt Family history of diabetes mellitus Uncle Family history of diabetes mellitus Grandfather Hearing loss Hypertension Cancer Heart disease Grandmother Hypertension Stroke Cancer Asthma Mother Cancer Other Allergies No family history of adverse response to anesthesia No family history of bleeding disorder Social History Smoking Status: Current every day smoker Tobacco Type: E-cigarettes / Vaping packs per day: 0.5; Cigarettes Per Day: 0.5 PPD; Second Hand Exposure: Yes (MOTHER SMOKES); Do You Dip or Chew Tobacco: No; Hx Alcohol Use: No Hx Substance Use: Yes Non-Prescribed Medications: Marijuana Last Used Substance Other:: ONLY RX JAVI Preferred Language: Azeri Communication Ability: Effective Visual Impairment: No Limitations Hearing Ability: Normal Entry Specialist Required: No Beliefs That Will Affect Care: None marital status: Single Current Living Situation: Alone current occupational status: employed current occupation: [employer] How many Children do You have: 0 Feels Safe at Home: Yes Assistive Devices: Glasses Review of Systems A total of 10 systems reviewed and were otherwise negative Physical Exam Vital Signs Vital Signs - 24 hr 03/06/24 12:49 03/06/24 13:05 03/06/24 13:21 Temperature 36.8 C Temperature Source Oral Pulse Rate 130 H 109 H 105 H Pulse Rate from SpO2 Sensor 105 H Pulse Rhythm Regular Pulse Strength Normal Respiratory Rate 20 20 24 Respiratory Effort / Characteristics Non-Labored Spontaneous Respiratory Depth Normal Respiratory Pattern Regular Blood Pressure 121/87 Blood Pressure Mean 98 Blood Pressure Position Sitting Pulse Oximetry 97 97 98 Oxygen Delivery Method Room Air Room Air Sepsis Recent Fever Within 48 Hours No Sepsis New/Unexplained Change in Mental Status N/A Sepsis Action Taken by Nursing No Action Required 03/06/24 13:30 03/06/24 13:32 03/06/24 13:54 Temperature Temperature Source Pulse Rate 101 H 94 H Pulse Rate from SpO2 Sensor 101 H 94 H Pulse Rhythm Pulse Strength Respiratory Rate 32 H 33 H Respiratory Effort / Characteristics Respiratory Depth Respiratory Pattern Blood Pressure 120/75 Blood Pressure Mean 98 Blood Pressure Position Pulse Oximetry 96 96 Oxygen Delivery Method Sepsis Recent Fever Within 48 Hours Sepsis New/Unexplained Change in Mental Status Sepsis Action Taken by Nursing 03/06/24 14:00 03/06/24 14:10 03/06/24 15:20 Temperature Temperature Source Pulse Rate 110 H Pulse Rate from SpO2 Sensor Pulse Rhythm Pulse Strength Respiratory Rate Respiratory Effort / Characteristics Respiratory Depth Respiratory Pattern Blood Pressure 119/78 131/56 L Blood Pressure Mean 83 84 Blood Pressure Position Pulse Oximetry Oxygen Delivery Method Sepsis Recent Fever Within 48 Hours Sepsis New/Unexplained Change in Mental Status Sepsis Action Taken by Nursing 03/06/24 15:27 03/06/24 15:33 03/06/24 16:09 Temperature Temperature Source Pulse Rate 79 85 79 Pulse Rate from SpO2 Sensor 80 85 79 Pulse Rhythm Pulse Strength Respiratory Rate 21 13 33 H Respiratory Effort / Characteristics Respiratory Depth Respiratory Pattern Blood Pressure Blood Pressure Mean Blood Pressure Position Pulse Oximetry 93 94 93 Oxygen Delivery Method Sepsis Recent Fever Within 48 Hours Sepsis New/Unexplained Change in Mental Status Sepsis Action Taken by Nursing General: Well developed well nourished in no acute distress, breathing comfortably on room air. Normal speech HEENT: Normal cephalic atraumatic. Pupils are equal round and reactive to light. Extraocular movements are intact. Oropharynx is pink with moist mucous membranes. No swelling of the mouth lips or tongue. Neck: Supple with a midline trachea. No meningeal signs or stiffness, no JVD or bruits. No Stridor. Chest: Clear to auscultation bilaterally. No wheezes or rhonchi. No increased work of breathing. Heart: Regular rate and rhythm without murmurs or gallops. Abdomen: Soft nontender, nondistended without rebound guarding or rigidity. Extremities: No cyanosis clubbing or edema. No calf tenderness or assymetry. She has multiple areas on her skin where she has been picking at it. She has redness around her right foot and ankle up to the mid dukes. It is not extended the border they pablo on Spine/Back. Non tender to palpation. No CVA tenderness Skin: Good turgor without rashes. Neurologic exam: Cranial nerves two through 12 are intact. Motor and sensation are intact and symmetrical throughout. Course Administered Medications Discontinued Medications Sodium Chloride (Nss) 1,000 mls @ 999 mls/hr IV .Q1H1M ONE Stop: 03/06/24 14:18 Last Infusion: 03/06/24 14:29 Dose: Infused Documented By: Admin: 03/06/24 13:28 Dose: 999 mls/hr Documented By: WILSON Ceftriaxone Sodium (Rocephin) 2,000 mg in 50 mls @ 100 mls/hr IV NOW STA Stop: 03/06/24 13:48 Last Infusion: 03/06/24 13:57 Dose: Infused Documented By: Admin: 03/06/24 13:27 Dose: 100 mls/hr Documented By: WILSON Magnesium Sulfate/Dextrose (Magnesium Sulfate / D5w) 1 gm in 100 mls @ 100 mls/hr IV NOW STA Stop: 03/06/24 17:13 Last Infusion: 03/06/24 18:49 Dose: Infused Documented By: Admin: 03/06/24 16:40 Dose: 100 mls/hr Documented By: WILSON Daptomycin 375 mg/ Syringe 7.5 mls @ 3.75 mls/min IV ONE ONE; Protocol Stop: 03/06/24 17:00 Last Admin: 03/06/24 17:32 Dose: 3.75 mls/min Documented By: JAIDEN Ioversol (Optiray 320 125ml) 118 ml IV ONCE ONE Stop: 03/06/24 16:58 Last Admin: 03/06/24 16:58 Dose: 118 ml Documented By: BEBETO Morphine Sulfate (Morphine Sulfate 4 Mg/Ml 1 Ml Carp\Vial) 4 mg IV NOW STA Stop: 03/06/24 15:02 Last Admin: 03/06/24 15:18 Dose: 4 mg Documented By: JAIDEN Ondansetron HCl (Ondansetron Inj 2 Mg/Ml 2 Ml Vial) 4 mg IV NOW STA Stop: 03/06/24 15:02 Last Admin: 03/06/24 15:18 Dose: 4 mg Documented By: JAIDEN Medical Decision Making Differential Diagnosis Cellulitis, DVT, sepsis, toxicologic, metabolic Medical Records Attestation: I reviewed the patient's medical records. Home Medications Current Medication List: was personally reviewed by me Laboratory Data Attestation: I reviewed the patient's lab results. 03/06/24 12:50 03/06/24 12:50 Lab Results 03/06/24 03/06/24 03/06/24 Range/Units 12:50 12:58 15:04 WBC 11.17 H (4.8-10.8) K/ul RBC 4.48 (4.20-5.40) M/uL Hgb 12.2 (12.0-16.0) g/dl Hct 37.1 (37.0-47.0) % MCV 82.8 (80.0-100.0) fL MCH 27.2 (25.0-34.0) pg MCHC 32.9 (32.0-36.0) g/dL RDW Std Deviation 49.0 H (36.4-46.3) fL RDW Coeff of Kita 16.4 H (11.5-14.5) % Plt Count 378 (130-400) K/uL MPV 9.4 (9.4-12.4) fL Immature Gran % (Auto) 0.4 % Neut % (Auto) 77.8 % Lymph % (Auto) 13.2 % [place] % (Auto) 7.8 % Eos % (Auto) 0.5 % Baso % (Auto) 0.3 % Neut # (Auto) 8.68 H (1.40-6.50) K/uL Lymph # (Auto) 1.48 (1.20-3.40) K/uL [place] # (Auto) 0.87 H (0.11-0.59) K/uL Eos # (Auto) 0.06 (0.00-0.50) K/uL Baso # (Auto) 0.03 (0.00-0.20) K/uL Immature Gran # (Auto) 0.05 (0.01-0.20) K/uL PT 10.3 (9.0-12.0) Seconds INR 0.9 (0.9-1.1) APTT 29 (21-31) Seconds PTT Ratio 1.1 D-Dimer 780 H* (0-500) ug/L FEU Sodium 133 L (136-145) mmol/L Potassium 3.8 (3.5-5.1) mmol/L Chloride 102 (98-107) mmol/L Carbon Dioxide 21 (21-32) mmol/L Anion Gap 10 (3-11) BUN 11 (6-23) mg/dl Creatinine 0.92 (0.6-1.2) mg/dl Est Cr Clr Drug Dosing Not Reportable Est GFR ( Amer) 92.2 ml/min Est GFR (Non-Af Amer) 79.5 ml/min BUN/Creatinine Ratio 12.0 (10-20) Glucose 188 H (70-99(Fasting)) mg/dl Lactate 2.6 H* 1.7 (0.4-2.0) mmol/L Calcium 9.0 (8.6-10.3) mg/dl Magnesium 1.4 L (1.7-2.4) mg/dl Total Bilirubin 0.3 (0.2-1.0) mg/dl AST 10 L (13-39) U/L ALT 8 (7-52) U/L Alkaline Phosphatase 77 (34-104) U/L Troponin I High Sens 3.4 (0-14) pg/ml Total Protein 7.3 (6.0-8.3) gm/dl Albumin 3.8 (3.4-5.0) gm/dl Globulin 3.5 (2.5-4.0) gm/dl Albumin/Globulin Ratio 1.1 (0.9-2) Procalcitonin 0.22 (0-0.5) ng/ml HCG, Qual Negative (Negative) Salicylates < 3.0 L (3.0-30) mg/dl Acetaminophen < 3 L (10-30) ug/ml Imaging Data Attestation: I personally reviewed and interpreted this imaging study as follows: My Impression: Chest x-rayno acute infiltrate, failure, pneumothorax seen Radiologist's Impression: Chest X-Ray 03/06/24 13:05 XR chest 1V portable HISTORY: Sepsis COMPARISON: Chest 06/18/2020. FINDINGS: The lungs are clear. Cardiac silhouette is normal in size. No pleural effusions. No pneumothorax. IMPRESSION: No acute process. ACT 112: Negative or not required by law. Electronically signed by: Taurus Mckeon M.D. 03/06/2024 1:46 PM Venous Doppler Study 03/06/24 13:46 LEFT LOWER EXTREMITY VENOUS DOPPLER HISTORY: Acute pain and swelling of the left lower leg eval for dvt COMPARISON STUDY: None. FINDINGS: There is normal compressibility, flow, and augmentation within the left lower extremity deep venous system. IMPRESSION: No DVT within the left lower extremity. ACT 112: Negative or not required by law. Electronically signed by: Tom Bradford M.D. 03/06/2024 2:36 PM ECG Data Attestation: I personally reviewed and interpreted this ECG as follows: Indication: + weakness Rate (beats per minute): 114 Rhythm: + sinus tachycardia ECG Intervals/blocks: + Normal QRS, + Normal QT and + Normal GA ECG [place]: + Normal ECG ST segments: + Normal ST segments ECG Findings: no PACs or no PVCs Comparison ECG Date: from (03/13/2023) Change: no significant change MDM Narrative This patient comes in as described above. She was placed in room C11. She is here for treatment and evaluation of cellulitis is gotten worse she has an area on her legs it is has a pen denisha around it does not seem to extended around that. IV access was established she was given Rocephin 2 g IV after discussing antibiotic choices with her ED pharmacist and consultation. Multiple blood testing was obtained she was reassessed frequently. She was placed on a environmental monitoring specialist in room C12. Her white count was elevated her lactic acid was mildly elevated however cleared after having fluid resuscitation. She is noticing of electrolyte or metabolic abnormality ultrasound was negative and showed no evidence of DVT. She does need to be admitted for cellulitis. I have consulted the [facility] hospitalist and discussed the case with them and they will admit/observe her for these measures. She did require IV morphine and IV Zofran for pain management in the ED. Continuous cardiac monitoring: Orders placed in EMR for continuous cardiac monitoring: Upon my evaluation patient to be in sinus tachycardia with a rate of 110 Impression & Plan Cellulitis of left leg, Diabetes mellitus, type 2, Left leg pain, Not currently Discharge Plan Visit Data Chief Complaint: Swelling/Edema to Extremity Stated Complaint: left leg swollen, painful ED Provider: Simon Spencer Discharge Problem: Cellulitis of left leg, Diabetes mellitus, type 2, Left leg pain, Not currently Patient Disposition: Admitted As Inpatient Discharge Instructions Interventions: ED Discharge Assessment Last Done: 03/06/24 18:26 Discharge Problem: Diabetes mellitus, type 2 Qualifiers: Diabetes mellitus terminal makeup operator insulin use: unspecified terminal makeup operator insulin use status Diabetes mellitus complication status: without complication Qualified Code(s): E11.9 - Type 2 diabetes mellitus without complications
[2024-03-06] MEDS: cefTRIAXone SODIUM 2,000 MG/50 ML BAG IV STA (13:27)
[2024-03-06] MEDS: SODIUM CHLORIDE 0.9% 1,000 ML IV ONE (13:28)
[2024-03-06 13:36] LABS: INR 0.9 (0.9-1.1); Partial Thromboplastin Ratio 1.1; Partial Thromboplastin Time 29 Seconds (21-31); Prothrombin Time 10.3 Seconds (9.0-12.0)
[2024-03-06 13:40] LABS: Alanine Aminotransferase 8 U/L (7-52); Albumin Globulin Ratio 1.1 (0.9-2); Albumin Level 3.8 gm/dl (3.4-5.0); Alkaline Phosphatase 77 U/L (34-104); Anion Gap 10 (3-11); Aspartate Aminotransferase 10 U/L (13-39); Bilirubin,Total 0.3 mg/dl (0.2-1.0); Blood Urea Nitrogen 11 mg/dl (6-23); Carbon Dioxide 21 mmol/L (21-32); Chloride 102 mmol/L (98-107); Est GFR (African American) 92.2 ml/min; Est GFR (Non-African American) 79.5 ml/min; Globulin 3.5 gm/dl (2.5-4.0); Glucose 188 mg/dl (70-99(Fasting)); Magnesium 1.4 mg/dl (1.7-2.4); Potassium 3.8 mmol/L (3.5-5.1); Sodium 133 mmol/L (136-145); Total Protein 7.3 gm/dl (6.0-8.3)
[2024-03-06 13:43] LABS: D Dimer 780 ug/L FEU (0-500)
--- NOTE | 2024-03-06 13:47 | XRay Report ---
XR chest 1V portable HISTORY: Sepsis COMPARISON: Chest 06/18/2020. FINDINGS: The lungs are clear. Cardiac silhouette is normal in size. No pleural effusions. No pneumot horax. IMPRESSION: No acute process. ACT 112: Negative or not required by law. Electronically signed by: Taurus Mckeon M.D. 03/06/2024 1:46 PM
[2024-03-06 13:55] LABS: Troponin I High Sensitivity 3.4 pg/ml (0-14)
[2024-03-06 14:01] LABS: Acetaminophen < 3 ug/ml (10-30); Salicylate < 3.0 mg/dl (3.0-30)
[2024-03-06 14:16] LABS: Pregnancy Test, Serum Negative (Negative)
--- NOTE | 2024-03-06 14:37 | Ultrasound Report ---
LEFT LOWER EXTREMITY VENOUS DOPPLER HISTORY: Acute pain and swelling of the left lower leg eval for dvt COMPARISON STUDY: None. FINDINGS: There is normal compressibility, flow, and augmentation within the left lower extremity arielle p venous system. IMPRESSION: No DVT within the left lower extremity. ACT 112: Negative or not required by law. Electronically signed by: Tom Bradford M.D. 03/06/2024 2:36 PM
[2024-03-06] MEDS: MoRPHine SULFATE 4 MG/ML 1 ML CARP\\VIAL IV STA (15:18)
[2024-03-06] MEDS: ONDANSETRON INJ 2 MG/ML 2 ML VIAL IV STA (15:18)
--- NOTE | 2024-03-06 15:29 | History & Physical Report ---
Date of Service March 06, 2024 Assessment & Plan (1) Cellulitis of left leg: Plan: Patient is 39-year-old female with PMH DM II, GERD, WALT, ADHD, anxiety, bipolar disorder presented to ER with c/o LLE pain and erythema x 3 days with tactile fevers. In ER afebrile, initial P130, R: 20, BP 121/87, 97% on room air. WBC: 11 EKG sinus tachycardia rate 114 In ER given 1L NSS, Rocephin 2 g IV, morphine, Zofran Lactate: 2.6-->1.7 Patient reassessed pulse in the 80s, sinus rhythm, BP: 131/76, R: 18 Blood cultures pending Venous Doppler LLE: No DVT Obtain wound culture Zosyn, daptomycin Tylenol, oxycodone as needed pain CBC, BMP in a.m. (2) Elevated d-dimer: Plan: D-dimer: 780 Denies chest pain, shortness of breath. Denies RLE pain, edema. On exam no edema erythema or tenderness to palpation to RLE LLE venous Doppler: No DVT CTA chest: No PE (3) Hypomagnesemia: Plan: Magnesium: 1.4 Magnesium sulfate 1 g IV Magnesium lab in a.m. (4) Diabetes mellitus, type 2: Plan: A1c: 5.4 on 12/25/2023 Hold home metformin, Trulicity NovoLog sliding scale per protocol (5) Sleep apnea: Plan: CPAP at bedtime (6) Anxiety: (7) Depression: (8) Bipolar 1 disorder: Plan: Will hold Ritalin as patient reports will not need while hospitalized Continue home bupropion, lamotrigine, fluoxetine. Continue home clonazepam, propranolol as needed anxiety (9) Cannabis vapor product use: (10) Vapes nicotine containing substance: Plan: Denies nicotine patch DVT Prophylaxis Lovenox SQ Admit med/tele Full Code as per discussion with pt Follows with Dr Jacobson for routine care Pt was seen and care coordinated with Dr Apple. See addendum I spent a total of 75 minutes reviewing notes, outpatient records, labs, medication, coordinating, documenting and providing care for this patient excluding time spent in the performance of separately billed services. History of Present Illness Chief Complaint: LLE pain and edema Primary Care Provider: Sonido Jacobson MD Patient is 39-year-old female with PMH DM II, GERD, WALT, ADHD, anxiety, bipolar disorder presented to ER with c/o LLE pain and erythema x 3 days. Patient states 3 days ago had tactile fever, chills and nausea and vomiting. No further nausea. Patient states then noticed some erythema to left lower leg. Erythema and edema worsened and states area is very tender. Outpatient chart reviewed and had telemedicine visit 03/05/2024 with PCPs office for reported erythema of left leg with tenderness and warmth to palpation and was prescribed doxycycline. Patient states took two doses doxycycline. Today pain worse and painful to ambulate so came to ER for further evaluation. Tried Tylenol and Ibuprofen at home without much relief. Admits to picking at skin lesions to left leg and thinks that was underlying cause. Denies other known injury to leg. Reports history right lower extremity cellulitis in past treated outpatient with oral antibiotics. Patient states history of chronic skin lesions to upper and lower extremities chest and abdomen. She states she will sometimes have pimple-like regions or areas of pruritus and she reports that she picks at these areas. Patient denies any known history of MRSA but doesn't think was ever evaluated. Denies CP, SOB, cough. Reports chronic intermittent lower abdominal pain and denies any current abdominal pain. Denies hematemesis, diarrhea, constipation, HIGH, dizziness, orthopnea, palpitations, rhinorrhea, urinary symptoms. Allergies Allergy/AdvReac Type Severity Reaction Status Date / Time adhesive Allergy Intermediate Blistering Verified 03/06/24 13:40 kiwi Allergy Intermediate Tongue Verified 03/06/24 13:40 swelling gluten Allergy Mild Rash, Verified 03/06/24 13:40 nausea (with large amounts) ibuprofen AdvReac Severe GI bleed Verified 03/06/24 13:40 sumatriptan AdvReac Intermediate Increases Verified 03/06/24 13:40 neck pain and stiffness Macias Pepper Allergy Intermediate Throat Uncoded 03/06/24 13:40 irritation Home Medications Medication Instructions Recorded Confirmed Type albuterol sulfate 90 mcg/actuation 2 puff inhalation QID PRN Wheezing 04/30/18 03/06/24 History aerosol inhaler (Ventolin HFA) methylphenidate HCl 10 mg tablet 10 mg PO BID 04/30/18 03/06/24 History (Ritalin) omeprazole 20 mg delayed 20 mg PO DAILY PRN Heartburn 04/30/18 03/06/24 History release,disintegrating tablet fluoxetine 40 mg capsule (Prozac) 80 mg PO QAM 07/02/18 03/06/24 History metformin 500 mg tablet,extended 1,000 mg PO BID 11/28/18 03/06/24 History release 24 hr multivitamin with minerals 1 tab PO QAM 04/13/19 03/06/24 History (Hair,Skin and Nails tablet) propranolol 10 mg tablet 10 mg PO BID PRN Anxiety 04/13/19 03/06/24 History clonazepam 0.5 mg tablet (Klonopin) 0.5 mg PO DAILY PRN Anxiety 02/06/20 03/06/24 History Medical Marijuana 0 mg inhalation DIRECTED PRN 04/03/20 03/06/24 History Anxiety lamotrigine 25 mg tablet 50 mg PO BID 04/03/20 03/06/24 History ondansetron 4 mg disintegrating 4 mg PO Q6 PRN nausea and vomiting 10/27/20 03/06/24 Rx tablet #14 tabs diphenhydramine HCl 25 mg capsule 25 mg PO HS PRN Insomnia 11/18/20 03/06/24 History (Benadryl) acetaminophen 500 mg tablet 500 mg PO Q6H PRN Pain 12/30/21 03/06/24 History (Tylenol Extra Strength) biotin 1 mg capsule 1 mg PO DAILY 01/25/22 03/06/24 History loratadine 10 mg tablet (Claritin) 10 mg PO DAILY PRN ALLERGY RELIEF 01/25/22 03/06/24 History ibuprofen 600 mg tablet 600 mg PO Q6H PRN Other 03/09/23 03/06/24 History tizanidine 4 mg tablet 4 mg PO Q6H PRN Other 03/09/23 03/06/24 History bupropion HCl 200 mg tablet,12 hr 200 mg PO DAILY 03/06/24 03/06/24 History sustained-release dulaglutide 1.5 mg/0.5 mL 1.5 mg subcut WK 03/06/24 03/06/24 History subcutaneous pen injector (Trulicity) gabapentin 300 mg capsule 300 mg PO HS 03/06/24 03/06/24 History trazodone 300 mg tablet 300 mg PO HS 08/02/24 08/02/24 History Past Med/Surg History Problem List (Updated 03/06/24 @ 21:57 by Brea Montes PA-C) Vapes nicotine containing substance Cannabis vapor product use Bipolar 1 disorder Hypomagnesemia Elevated d-dimer Not currently (Acute) Left leg pain (Acute) Cellulitis of left leg (Acute) Hidradenitis (Chronic) Asthma (Chronic) Exercise induced (inhaler PRN) Cholecystectomy planned Anxiety (Chronic) Depression (Chronic) Morbid obesity with BMI of 45.0-49.9, adult (Chronic) Tonsillith Mouth pain Encounter for pre-operative examination Dysmenorrhea (Chronic) Sleep apnea (Chronic) CPAP ordered (DEVICE RECALLED/NOT USING RIGHT NOW) Migraine (Chronic) Diabetes mellitus, type 2 (Chronic) Chronic back pain (Chronic) PCOS (polycystic ovarian syndrome) (Chronic) Medical History ADHD Degenerative disc disease Arthritis Kidney lesion Heartburn Agoraphobia Post traumatic stress disorder Anxiety and depression History of COVID-19 08/2021 > FEVER/COUGH/LOSS OF TASTE, SMELL *RESOLVED Exercise-induced asthma ALLERGY INDUCED ASTHMA>NO INHALER USED RECENTLY Encounter for pre-operative examination Morbid obesity Osteoarthritis Fatty liver Symptoms consistent with irritable bowel syndrome Temporomandibular joint disorder + clicking, occasional locking* Surgical History History of tonsillectomy History of hemorrhoidectomy X 2 History of dilatation and curettage History of cholecystectomy History of esophagogastroduodenoscopy (EGD) EGD with biopsies (04/23/19): MAC sedation at [facility] History of colonoscopy History of tooth extraction History of wisdom tooth extraction Family History Aunt Family history of diabetes mellitus Uncle Family history of diabetes mellitus Grandfather Hearing loss Hypertension Cancer Heart disease Grandmother Hypertension Stroke Cancer Asthma Mother Cancer Other Allergies No family history of adverse response to anesthesia No family history of bleeding disorder Social History Smoking Status: Light tobacco smoker Tobacco Type: E-cigarettes / Vaping packs per day: 0.5; Cigarettes Per Day: 0.5 PPD; Second Hand Exposure: Yes (MOTHER SMOKES); Do You Dip or Chew Tobacco: No; Tobacco Cessation Education Requested by Patient: No Hx Alcohol Use: No Hx Substance Use: Yes Non-Prescribed Medications: Marijuana Last Used Substance Other:: ONLY RX JAVI Preferred Language: Latvian Communication Ability: Effective Visual Impairment: No Limitations Hearing Ability: Normal Ux Designer Required: No Beliefs That Will Affect Care: None marital status: Single Current Living Situation: Alone current occupational status: employed current occupation: [employer] How many Children do You have: 0 Other Information That Helps Us Care for You: No Feels Safe at Home: Yes Safety Concerns: Feels Safe At This Time Assistive Devices: None Review of Systems Review of Systems: All systems reviewed & are unremarkable except as noted in HPI & below Physical Exam Physical Exam: General: no distress, obese Head: normocephalic, atraumatic Eyes: conjunctiva non-injected, anicteric ENT: normal inspection external ears, nose, mucous membranes moist Neck: supple, trachea midline Lungs: clear, no respiratory distress, no wheezing/rhonchi/rales CV: RRR, no murmur Abd: normal BS, soft, non-tender Ext: no cyanosis. LLE: +edema, erythema and warmth extending from proximal foot to mid dukes/calf with moderate tenderness to palpation, +multiple excoriated erythematous lesions to extremity, distal pulses palpable. RLE without erythema, edema or tenderness to palpation Neuro: A&O x 3, no focal deficits noted, normal affect Skin: warm, dry, +diffuse scattered round scabbed erythematous excoriated lesions to bilateral upper and lower extremities, chest, abdomen. +multiple round scars noted to bilateral upper and lower extremities Results & Data Results & Data Vital Signs (Past 12 Hours) Vital Signs Temp Pulse Resp BP Pulse Ox O2 Del Method 03/06/24 14:10 110 H 03/06/24 13:05 109 H 20 97 Room Air 03/06/24 12:49 36.8 C 130 H 20 121/87 97 Room Air Laboratory Results Short CBC 03/06/24 Range/Units 12:50 WBC 11.17 H (4.8-10.8) K/ul Hgb 12.2 (12.0-16.0) g/dl Hct 37.1 (37.0-47.0) % Plt Count 378 (130-400) K/uL BMP 03/06/24 12:50 Sodium 133 L Potassium 3.8 Chloride 102 Carbon Dioxide 21 BUN 11 Creatinine 0.92 Glucose 188 H Calcium 9.0 Liver Function 03/06/24 Range/Units 12:50 Total Bilirubin 0.3 (0.2-1.0) mg/dl AST 10 L (13-39) U/L ALT 8 (7-52) U/L Alkaline Phosphatase 77 (34-104) U/L Albumin 3.8 (3.4-5.0) gm/dl Diagnostic Findings Chest X-Ray 03/06/24 13:05 XR chest 1V portable HISTORY: Sepsis COMPARISON: Chest 06/18/2020. FINDINGS: The lungs are clear. Cardiac silhouette is normal in size. No pleural effusions. No pneumothorax. IMPRESSION: No acute process. ACT 112: Negative or not required by law. Electronically signed by: Taurus Mckeon M.D. 03/06/2024 1:46 PM Venous Doppler Study 03/06/24 13:46 LEFT LOWER EXTREMITY VENOUS DOPPLER HISTORY: Acute pain and swelling of the left lower leg eval for dvt COMPARISON STUDY: None. FINDINGS: There is normal compressibility, flow, and augmentation within the left lower extremity deep venous system. IMPRESSION: No DVT within the left lower extremity. ACT 112: Negative or not required by law. Electronically signed by: Tom Bradford M.D. 03/06/2024 2:36 PM Chest CTA 03/06/24 16:33 CT angio chest PE protocol CLINICAL HISTORY: PE TECHNIQUE: Multidetector row helical CT of the chest was performed with angiographic protocol. Coronal and sagittal reformations were obtained. Coronal and sagittal MIPS were obtained from the axial data set and were submitted for review. Automated dose lowering techniques and/or adjustment according to patient size were utilized for this exam. CT DOSE: 890.56 mGy.cm Comparison: Comparison is made to CT chest 04/03/2020 FINDINGS: Lungs and pleura: Normal. Heart and pericardium: Heart size is normal. No pericardial effusion. Vessels: Evaluation for pulmonary embolism is limited due to suboptimal contrast timing. No evidence of central, lobar, or segmental embolus. Mediastinum and francois: Unremarkable. Chest wall and lower neck: Unremarkable. Abdomen: Unremarkable. Bones: Mild degenerative changes are seen. IMPRESSION: No acute abnormality and in particular no evidence of pulmonary embolus. ACT 112: Negative or not required by law. Electronically signed by: Drew Pierce M.D. 03/06/2024 5:07 PM ECG Additional Comments: Sinus tachycardia, rate 114 Supervising Physician Co-Signing Physician Notes Patient was seen and examined independently at bedside. Chart reviewed. Case discussed with Brea CALLAWAY and agree with the documentation above. In summary, this is a 39 year old female who presents to the ED with LLE cellulitis for the past 2 days, worsening despite being on doxy, although she has taken for 1 day only. She picks her skin due to her anxiety and has multiple scabs throughout. Had some fever at home but no purulent drainage but erythema and severe tenderness on touch. No evidence of DVT in LLE. Agree with empiric antibiotics and monitor for improvement. Site has been marked. Follow blood cultures. Had prior episode of RLE cellulitis which resolved with a course of doxy. Counseled not to pick on her skin. Rest as per the note above. (4) Diabetes mellitus, type 2 Diabetes mellitus complication status: without complication Diabetes mellitus terminal supervisor insulin use: unspecified terminal supervisor insulin use status Qualified Code(s): E11.9 - Type 2 diabetes mellitus without complications
[2024-03-06] MEDS: MAGNESIUM SULFATE / D5W 1 GM/100 ML BAG IV STA (16:40)
[2024-03-06] MEDS: OPTIRAY 320 125ml IV ONE (16:58)
--- NOTE | 2024-03-06 17:08 | CT Scan Report ---
CT angio chest PE protocol CLINICAL HISTORY: PE TECHNIQUE: Multidetector row helical CT of the chest was performed with angiographic protocol. Marr l and sagittal reformations were obtained. Coronal and sagittal MIPS were obtained from the axial amanda a set and were submitted for review. Automated dose lowering techniques and/or adjustment according to patient size were utilized for this exam. CT DOSE: 890.56 mGy.cm Comparison: Comparison is made to CT chest 04/03/2020 FINDINGS: Lungs and pleura: Normal. Heart and pericardium: Heart size is normal. No pericardial effusion. Vessels: Evaluation for pulmonary embolism is limited due to suboptimal contrast timing. No evidence of central, lobar, or segmental embolus. Mediastinum and francois: Unremarkable. Chest wall and lower neck: Unremarkable. Abdomen: Unremarkable. Bones: Mild degenerative changes are seen. IMPRESSION: No acute abnormality and in particular no evidence of pulmonary embolus. ACT 112: Negative or not required by law. Electronically signed by: Drew Pierce M.D. 03/06/2024 5:07 PM
[2024-03-06] MEDS: DAPTOmycin 375 MG in SYRINGE 0 ML IV ONE (17:32)
--- OUTSIDE RECORDS SUMMARY | 2024-03-06 17:46 | External Medical Summary | Summary of Care ---
Author Name Unknown Organization [facility] Address [address] [place] [address] Phone [phone] Care Team Providers Care Disposal Man Name Role Phone Earl Enamorado MD Primary Care Provider [phone] Encounter Details Date Type Department Care Team (Late st Contact Info) Description 03/05/2024 11:00 AM EDT Telemedicine [facility] [address] [place] [address] Reba Mai PA-C [address], [place] [id number] Open wound of abdomen, initial encounter*; Cellulitis of lower extremity, unspecified laterality Allergies Active Allergy Reactions Criticality Noted Date Comments Adhesive Tape Rash 02/08/2016 Capsicum Edema Other High 01/18/2021 Food (See Comments) Other (Please comment) 02/28/2015 Can not eat any peppers of any kind, or Had issues with swallowing Other reaction(s): IRRITATES THROAT Gluten Meal 05/27/2019 Ibuprofen Nausea/vomiting 05/26/2010 Kiwi Extract 11/02/2014 documented as of this encounter (statuses as of 03/05/2024) Medications Medication Sig Dispensed Refills Start Date End Date Status Multiple Vitamins-Minerals (HAIR/SKIN/NAILS) Tablet Take 1 Tab by mouth 3 times a day. Active Glucose Blood (ONETOUCH ULTRA BLUE) STRPIndications:Type 2 diabetes mellitus with hemoglobin A1c goal of less than 7.0% (HCC) Use as directed 4 times a day. Use up to four times a day as directed; E11.9 100 Strip 11 02/14/2018 Active ApptioTOUCH DELICA LANCETS 33G MISC Use as directed four times a day (E11.9) 100 Each 11 02/14/2018 Active Blood Glucose Monitoring Suppl (YumitUCH ULTRA 2) w/Device KIT Use up to four times a day (E11.9) 1 Kit 00 02/14/2018 Active propranolol (INDERAL) 10 MG Tablet 03/24/2019 Active FLUoxetine HCl (PROZAC) 40 MG CapsuleIndications:B ipolar 1 disorder, depressed (HCC),Anxiety Take 1 Cap by mouth daily. 30 Cap 11/23/2019 Active methylPHENIDATE (RITALIN) 10 MG TabletIndications:At tention deficit hyperactivity disorder (ADHD), unspecified ADHD type 1 pill 2x/day 60 Tab 11/23/2019 Active lamoTRIgine (LAMICTAL) 25 MG TabletIndications:Bi polar 1 disorder, depressed (HCC) Take 2 Tabs by mouth 2 times a day. 120 Tab 11/23/2019 Active clonazePAM (KLONOPIN) 0.5 MG Tablet TAKE 1 TABLET BY MOUTH ONCE DAILY NEEDED 01/20/2020 Active Diclofenac Sodium 1 % gelIndications:Trape zius muscle spasm,Migraine without aura and without status migrainosus, not intractable Apply 4 g topically to affected area 4 times a day. Apply to neck 100 g 04/07/2020 Active Pen [place] 12/18" 31G X 8 MMIndications:Type 2 diabetes mellitus with hemoglobin A1c goal of less than 7.0% (HCC) Use with Victoza daily 100 Each 5 06/28/2020 Active Fluticasone Propionate 50 MCG/ACT Nasal SuspensionIndication s:Acute URI,Viral illness,Flu-like symptoms Administer into each nostril 2 Sprays in the morning. 1 Each 09/07/2021 Active buPROPion HCl ER (SR) 100 MG Oral Tablet Extended Release 12 Hour (Wellbutrin SR) 02/20/2022 Active Acetaminophen 325 MG Oral Tablet (Tylenol) Take by mouth 2 Tablets every 6 hours . For the first 72 hours then every 6 hours as needed 30 Tablet 03/29/2022 Active Ibuprofen 600 MG Oral Tablet (Motrin) Take by mouth 1 Tablet every 6 hours . For 72 hours then as needed. 30 Tablet 03/29/2022 Active Ventolin HFA 108 (90 Base) MCG/ACT Inhalation Aerosol SolutionIndications: Acute URI,Viral illness,Flu-like symptoms Inhale 2 Puffs by mouth every 4 hours as needed for Wheezing. 54 g 3 09/11/2022 Active traZODone HCl 50 MG Oral Tablet (Desyrel) take 1/2 to 1 tablet by mouth at bedtime if needed 09/20/2022 Active Benzonatate 100 MG Oral CapsuleIndications:U pper respiratory tract infection, unspecified type,Pharyngitis, unspecified etiology Take 1 Capsule by mouth 3 times a day as needed for Cough (may make you sleepy). 15 Capsule 11/07/2022 Active Ondansetron 4 MG Oral Tablet Disintegrating (Zofran)Indications: Menorrhagia with irregular cycle,PCOS (polycystic ovarian syndrome) Place 1 Tablet on tongue every 8 hours as needed for Nausea. dissolve on tongue. 20 Tablet 03/15/2023 Active Nystatin 342160 UNIT/GM External Powder (Nystop) Apply 1 g topically to affected area in the morning and 1 g before bedtime. 60 g 5 04/05/2023 Active Triamcinolone Acetonide 0.1 % External Cream (Aristocort)Indicati ons:Flea bite, initial encounter Apply topically to affected area 2 times a day. To affected area. 453 g 5 06/11/2023 Active metFORMIN HCl ER 500 MG Oral Tablet Extended Release 24 Hour (Glucophage XR)Indications:Type 2 diabetes mellitus with hemoglobin A1c goal of less than 7.0% (HCC) TAKE 2 TABLETS BY MOUTH WITH BREAKFAST AND DINNER 360 Tablet 2 08/03/2023 Active Norethindrone 0.35 MG Oral TabletIndications:En counter for initial prescription of contraceptive pills Take 1 Tablet by mouth in the morning. 84 Tablet 3 08/07/2023 Active Dulaglutide 3 MG/0.5ML Subcutaneous Solution Pen-injector (Trulicity)Indicatio ns:Type 2 diabetes mellitus with hemoglobin A1c goal of less than 7.0% (HCC) Inject 3 mg under the skin once a week. 6 mL 3 08/09/2023 Active OneTouch Verio In Vitro Strip (Glucose Blood)Indications:Ty pe 2 diabetes mellitus with hemoglobin A1c goal of less than 7.0% (HCC) Dx E11.9 Check twice daily 200 Strip 2 12/09/2023 Active Gabapentin 300 MG Oral Capsule (Neurontin)Indicatio ns:Facial spasm Take 1 Capsule by mouth at bedtime. 30 Capsule 2 12/25/2023 Active tiZANidine HCl 4 MG Oral Tablet (Zanaflex)Indication s:Lumbar paraspinal muscle spasm Take 1 Tablet by mouth every 6 hours as needed for Muscle spasms. 24 Tablet 01/14/2024 Active Dulaglutide 1.5 MG/0.5ML Subcutaneous Solution Pen-injector (Trulicity)Indicatio ns:Type 2 diabetes mellitus with hemoglobin A1c goal of less than 7.0% ([facility]) Inject 1.5 mg under the skin once a week. 2 mL 2 01/18/2024 Active Doxycycline Hyclate 100 MG Oral CapsuleIndications:O pen wound of abdomen, initial encounter,Cellulitis of lower extremity, unspecified laterality Take 1 Capsule by mouth in the morning and 1 Capsule before bedtime. Do all this for 10 days. Until gone.. 20 Capsule 03/05/2024 03/15/2024 Active Mupirocin 2 % External Ointment (Bactroban)Indicatio ns:Open wound of abdomen, initial encounter,Cellulitis of lower extremity, unspecified laterality Apply topically to affected area 3 times a day for 14 days. Apply to affected area. 22 g 1 03/05/2024 03/19/2024 Active Fluconazole 150 MG Oral Tablet (Diflucan)Indication s:Open wound of abdomen, initial encounter,Cellulitis of lower extremity, unspecified laterality Take 1 Tablet by mouth once for 1 dose. 1 Tablet 03/05/2024 03/05/2024 Active documented as of this encounter (statuses as of 03/05/2024) Active Problems Problem Noted Date Diagnosed Date Food insecurity 09/17/2022 Overview: Per [facility] Protocol Hyperparathyroidism 09/11/2022 Benign endometrial hyperplasia 09/11/2022 Uncomplicated asthma 09/11/2022 Body mass index (BMI) of 40.0 to 44.9 in adult 1 Overview: Per Obesity protocol - Per Obesity protocol - Per Obesity protocol - Per Obesity protocol - bmi= 46.72 11/01/14 ICD-10 update of inactive term Tooth pain 03/08/2021 Type 2 diabetes mellitus with hyperglycemia 02/02 Type 2 diabetes mellitus wit h hemoglobin A1c goal of less than 7.0% 02/25/2018 Migraine 02/28/2015 Bipolar 1 disorder, depressed 11/01/2014 Tobacco use disorder 08/16/2014 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 0 to 49.9 in adult 09/18/2021 05/17/2022 Overview: Per Obesity protocol - Per Obesity protocol - Per Obesity protocol - bmi= 46.72 11/01/14 ICD-10 update of inactive term Body mass index (BMI) of 40. 0 to 44.9 in adult 05/18/2019 09/20/2021 Overview: Per Obesity protocol - Per Obesity protocol - bmi= 46.72 11/01/14 ICD-10 update of inactive term Body mass index (BMI) of 45. 0 to 49.9 in adult 02/09/2019 05/20/2019 Overview: Per Obesity protocol - bmi= 46.72 11/01/14 ICD-10 update of inactive term Body mass index (BMI) of 40. 0 to 44.9 in adult 08/18/2018 02/12/2019 Overview: Per Obesity protocol #1 - bmi= 46.72 11/01/14 ICD-10 update of inactive term Prediabetes 09/17/2017 02/14/2018 Overview: Per Prediabetes protocol #1 Sinus congestion 02/28/2015 02/14/2018 Gardnerella infection 01/25/20152017 Dysuria 01/25/2015 02/14/2018 Backache 01/25/2015 04/20/2019 Body mass index (BMI) of 45.0-49.9 in adult 11/01/2014 08/22/2018 Overview: bmi= 46.72 11/01/14 ICD-10 update of inactive term GERD 11/01/2014 04/20/2019 Obstipation 11/01/2014 02/14/2018 RUQ abdominal pain 11/01/2014 8 Lumbago 07/03/2014 02/14/2018 Overview: Seems to be related to recent coughing episode. Lumbar paraspinal muscle spasm 05/24/2014 02/14/2018 Migraine headache 04/16/2014 02/28/2015 Advance directive discussed with patient 01/18/2014 04/20/2019 Overview: No, Advance Directive brochure given to patient. Jaw pain 01/07/2014 02/14/2018 Tobacco use disorder 01/07/2014 018 Obesity, morbid (more than 1 00 lbs over ideal weight or BMI > 40) 10/26/2013 05/09/2017 Overview: bmi= 48.81 10/26/13 General counseling for presc ription of oral contraceptives 10/26/2013 02/14/2018 Biliary sludge 05/15/2012 08/07/2023 Obesity, morbid (more than 1 00 lbs over ideal weight or BMI > 40) 11/01/2009 05/09/2017 Overview: Per Obesity Taxonomy ICD-10 update of inactive term Morbid Obesity, BMI not known 06/19/2007 11/01/2009 Overview: Per Obesity Taxonomy Hyperinsulinemia 06/19/2007 11/01/2014 Polycystic ovaries 06/19/2007 4 Tobacco use disorder 06/19/2007 014 Bipolar disorder 11/01/2014 documented as of this encounter (statuses as of 03/05/2024) Immunizations Name Administration Dates Next Due COVID-19 mRNA, LNP-s, No Pre serve, 2-Dose Series (Moderna) 05/26/2021,04/28/2021 HEP A - Hepatitis A (Adult > 18 yrs) 02/24/2019, 07/08/2018,02/22/2016 HPV Vaccine, 4-Valent 12/10/2013,07/18/2012,05/05 PPD 09/05/2022,07/02/2022 Pneumococcal Conjugate Vacci ne, 20-valent ([id number]) 02/13/2023 Pneumococcal Polysaccharide PPV23 (Pneumovax) 12/10/2013 Seasonal Influenza Virus Vac cine, Unspecified Formulation 05/12/2021,04/07/2020,04/20/2019,04/17,05/24/2016,04/13/2016,04/16/2014 ,09/29/2013 Seasonal Influenza, PF, 6 M & above, IM , (FluLaval or Fluzone) 06/11/2023,04/07/2020,04/20/2019 Seasonal Influenza, Quadriva lent, No Preserve, IM 04/17/2018 Seasonal Influenza, Quadriva lent,with Preserve, 3 yr & above, IM 04/17/2018 Seasonal Influenza, Split, I IV3, No Preserve, Inj 09/29/2013 Seasonal Influenza, Split, I IV3, With Preserve, Inj 05/24/2016,04/16/2014 TDAP (age 10 and older)(Boostrix) 10/23/2022 TDAP, Age 7 and older, IM (Adacel) 05/27/2012 documented as of this encounter Social History Tobacco Use Types Packs/Day Years Used Date Smoking Tobacco: Every Day Vaporizer Passive Smoke Exposure: Current Smokeless Tobacco: Never Comments:began at age 14 vap es Alcohol Use Standard Drinks/Week Comments Yes 0 (1 standard drink = 0.6 oz pur e alcohol) 2-3 times per year if that PHQ-2 Answer Date Recorded PHQ Adult Total Score 0 12/13/2021 Hunger Vital Sign Answer Date Recorded Within the past 12 months, y ou worried that your food would run out before you got the money to buy more. Often true 04/04/20 23 Within the past 12 months, t he food you bought just didn't last and you didn't have money to get more. Often true 04/04/2023 Childcare Answer Date Recorded Do you feel overwhelmed with taking care of a child, family member or friend? No 04/04/2023 Does your family need help f inding childcare? (Household - for ages 0-17 years) Not on file 04/04/2023 Clothing Answer Date Recorded Have you been unable to get clothing when it was really needed? Yes 04/04/2023 Is your family able to get c lothes or diapers when needed? (Household - for ages 0-17 years) Not on file 04/04/2023 Personal Safety Answer Date Recorded Do you feel unsafe or have concerns for your saf ety? No 04/04/2023 Do you have concerns for you r family's safety? (Household - for ages 0-17 years) Not on file 04/04/2023 Utilities Answer Date Recorded Do you have trouble paying y our heating, water, or electric bill? Yes 04/04/2023 Is your family able to pay t he heat, water, or electric bill? (Household - for ages 0-17 years) Not on file 04/04/2023 Does your family have access to good internet? (Household - for ages 0-17 years) Not on file 04/04/2023 Employment Status Answer Date Recorded Are you unemployed or without regular income? Ye s 04/04/2023 Does the household have a re gular source of income? (Household - for ages 0-17 years) Not on file 04/04/2023 Social Connections Answer Date Recorded How often do you feel lonely or isolated from th ose around you? Often 04/04/2023 Financial Resource Strain Answer Date R ecorded Do you have any trouble payi ng for your medications, or do you think you might in the future? Yes 04/04/2023 Does your family have troubl e paying for medicine? (Household - for ages 0-17 years) Not on file 04/04/2023 Transportation Needs Answer Date Record ed READ ONLY Do you have troubl e getting a ride to medical visits or work? Often True 04/04/2023 Does your family have a hard time getting a ride to doctors visits? (Household - for ages 0-17 years) Not on file 04/04/2023 Has lack of transportation k ept you from medical appointments, meetings, work, or from getting things needed for daily living? Check all that apply. (Adult - for ages 18 years and over) Not on file 04/04/2023 Do you (or your family) have trouble finding or paying for a ride (transportation)? (Household - for ages 0-17 years) Not on file 04/04/2023 Housing Stability Answer Date Recorded Do you currently live in a s helter or have no steady place to sleep at night? No 04/04/2023 READ ONLY Do you think you a re at risk of becoming homeless? No 04/04/2023 Does your family worry about paying for your home or becoming homeless? (Household - for ages 0-17 years) Not on file 0 04/04/2023 Are you homeless or worried that you might be in the future? (Adult - for ages 18 years and over) Not on file Are you (or your family) adilia eless or worried that you might be in the future? (Household - for ages 0-17 years) Not on file Food Insecurity Answer Date Recorded Do you need food for this week? Yes 04/04/2023 Are you able to get enough f ood for your family? (Household - for ages 0-17 years) Not on file 04/04/2023 Does your family need food t his week? (Household - for ages 0-17 years) Not on file 04/04/2023 Do you always have enough fo od for your family? (Household - for ages 0-17 years) Not on file 04/04/2023 Sex and Gender Information Value Date Recorded Sex Assigned at Female 08/03/2023 11:16 AM EST Gender Identity Female 08/03/2023 11:16 AM EST Sexual Orientation Love is love 05/05/2019 7: 51 AM EDT Job Start Date Occupation Industry Not on file Not on file Not on file documented as of this encounter Progress Notes * Reba Mai PA-C - 03/05/2024 11:06 AM EDT Images from the original note were not included. History of Present Illness Lorena Myles is a 39 year old female that presents for No chief complaint on file. Due to COVID 19 pandemic, this visit was done via video. Patient is established with the practice. Last face to face visit was 12/25/2023. Call start time: 1106 Patient location: HOME. I was in a hospital or clinic location. After connecting through televideo,patient was verified with two unique identifiers. 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 Methods to assure confidentiality were taken. Patient acknowledged consent and understanding of pr ivacy and security of the Telemedicine visit. The patient agreed to participate. Thinks she has cellulitis on her L leg This is on her medial aspect of her ankle She did write a marker boundary line and it has crossed the line oevr night Very hot to the touch She is noting chills, no overt fever She is not more tired She has chronic open sores on her body and right now many of them are infected She has pus oozing out of the open sores on her abdomen She is using bandaids to cover these It is painful She has a limp from this. Is icing and elevating Results for orders placed or performed in visit on 12/25/23 CBC Result Value Ref Range WBC 8.58 4.00 - 10.80 K/uL RBC 4.36 3.85 - 5.15 M/uL HGB 12.0 12.0 - 15.3 g/dL HCT 37.4 36.0 - 45.2 % MCV 85.8 81.5 - 97.5 fL MCH 27.5 27.0 - 34.0 pg MCHC 32.1 32.0 - 36.0 g/dL RDW 15.8 11.5 - 15.5 % PLT 408 (H) 140 - 400 K/uL MPV 9.6 6.6 - 11.1 fL nRBCs 0 <=0 /100 WBCs MAGNESIUM Result Value Ref Range Magnesium 1.8 1.5 - 2.6 mg/dL HEMOGLOBIN A1C Result Value Ref Range Hemoglobin A1C 5.4 4.0 - 5.6 % Estimated Average Glucose 108 <126 mg/dL COMPREHENSIVE METABOLIC PANEL Result Value Ref Range BUN 9 6 - 20 mg/dL Creatinine 0.9 0.5 - 1.0 mg/dL Estimated Glomerular Filtration Rate 87 >=60 mL/min Sodium 137 135 - 146 mmol/L Potassium 4.5 3.5 - 5.1 mmol/L Chloride 103 98 - 107 mmol/L CO2 24 22 - 32 mmol/L Anion Gap 10 7 - 15 mmol/L Glucose 96 70 - 120 mg/dL Albumin 4.0 3.8 - 5.0 g/dL AST 13 10 - 35 U/L Alkaline Phosphatase 98 35 - 130 U/L Bilirubin, Total <0.2 <=1.2 mg/dL Calcium 9.3 8.4 - 10.2 mg/dL Protein 6.7 6.0 - 8.3 g/dL ALT 18 10 - 35 U/L MYCODE SST1 Result Value Ref Range MyCode Specimen Freezing of extracted DNA, whole blood and/or serum. MYCODE SST2 Result Value Ref Range MyCode Specimen Freezing of extracted DNA, whole blood and/or serum. *Note: Due to a large number of results and/or encounters for the requested time period, some results have not been displayed. A complete set of results can be found in Results Review. Physical Exam There were no vitals filed for this visit. BP Readings from Last 3 Encounters: 12/25/23 106/72 08/07/23 104/68 06/11/23 102/78 Wt Readings from Last 3 Encounters: 12/25/23 127.1 kg (280 lb 4.8 oz) 08/07/23 128.6 kg (283 lb 8 oz) 06/11/23 127.9 kg (282 lb) BMI Readings from Last 3 Encounters: 12/25/23 38.02 kg/m 08/07/23 38.45 kg/m 06/11/23 38.25 kg/m Ht Readings from Last 3 Encounters: 12/25/23 1.829 m (6') 02/13/23 1.829 m (6') 09/29/22 1.829 m (6') Assessment and Plan Open wound of abdomen, initial encounter (Primary) - Doxycycline Hyclate 100 MG Oral Capsule; Take 1 Capsule by mouth in the morning and 1 Capsule before bedtime. Do all this for 10 days. Until gone.. - Mupirocin 2 % External Ointment (Bactroban); Apply topically to affected area 3 times a day for 14 days. Apply to affected area. - Fluconazole 150 MG Oral Tablet (Diflucan); Take 1 Tablet by mouth once for 1 dose. Cellulitis of lower extremity, unspecified laterality - Doxycycline Hyclate 100 MG Oral Capsule; Take 1 Capsule by mouth in the morning and 1 Capsule before bedtime. Do all this for 10 days. Until gone.. - Mupirocin 2 % External Ointment (Bactroban); Apply topically to affected area 3 times a day for 14 days. Apply to affected area. - Fluconazole 150 MG Oral Tablet (Diflucan); Take 1 Tablet by mouth once for 1 dose. Home care rev Wrap-Up Pt reminded about wec Rev need for er if worsens Time: I spent a total of 10-19 minutes (exact time 10 mins) on the date of service in preparation, delivery, and documentation of the care provided to Lorena Myles excluding any time spent in the performance of separately billed services. Reba Mai PA-C 03/05/2024 11:12 AM documented in this encounter Plan of Treatment Health Maintenance Due Date Last Done Comments DISCUSS TOBACCO CESSATION (REFER TO SMARTSET #0219) 1987 Albumin/Creatinine Ratio 2005 Hepatitis B Vaccine (1 of 3 - 19+ 3-dose series) 2006 *SPIROMETRY ONCE FOR ASTHMA-ADULT 09/14/2022 COVID-19 Vaccine (2022-24 season) 2023 05/26/2021, 04/28/2021 B-12 02/14/2024 02/13/2023, 04/05, 02/14/2018 Diabetic Foot Exam 04/05/2024 04/05/2023, 0 04/07/2020, 05/01/2019, Additional history exists Influenza Vaccine (FLU shot) (#1) 2024 06/11/2023, 05/12/2021, 04/07/2020, Additional history exists HbA1c 06/26/2024 12/25/2023, 0 11/2023, 02/13/2023, Additional history exists Diabetic Eye Exam 08/07/2024 08/07/2023, , 04/14/2018 GFR 12/24/2024 12/25/2023, 02/02, 01/17/2022, Additional history exists Pap Smear 06/11/2026 06/11/2023, 040 12/2017, 11/07/2017, Additional history exists Cervical Cancer Screening 06/11/2028 HPV/Co-Test 06/11/2028 06/11/2023 DTaP,Tdap,and Td Vaccines (3 - Td or Tdap) 10/23/2032 10/23/2022, 05/27/2012 HPV (Gardasil) Vaccine Completed 4, 07/18/2012, 05/15/2012 Pneumococcal Vaccine: Pediatrics (0 to 5 Years) and At-Risk Patients (6 to 64 Years) Completed 02/13/2023, 12/10/2013 Hepatitis C Screening Completed 04/06/2023, 018 MENINGOCOCCAL (MENACTRA/MENVEO) Aged Out No longer eligible based on patient's age to complete this topic documented as of this encounter Medical Devices Not on filedocumented as of this encounter Visit Diagnoses Diagnosis Open wound of abdomen, initial encounter- Primary Cellulitis of lower extremity, unspecified laterality documented in this encounter Advance Directives * Full Code (Latest Code Status on File) Date Activated Date Inactivated Comments 02/19/2020 10:13 AM 02/19/2020 3:14 PM This order reflects the patients wishes and were consensually agreed upon. Question Answer Comments Discussion of Advance Directives occurred with: Patient Does the patient have a Living Will? No Does the patient have Health Care Power of Attor ramy? No Care Teams Disposal Man Relationship Specialty Start Date End Date December, Earl Saba MD [address] [place] [id number] PCP - General Family Medicine 02/16/24 documented as of this encounter
--- OUTSIDE RECORDS SUMMARY | 2024-03-06 17:47 | External Medical Summary | Summary of Care ---
Author Name Unknown Organization [facility] Address [address] [place] [address] Phone [phone] Care Team Providers Care Obstetrics Gynecology Md Name Role Phone DecemberEarl MD Primary Care Provider [phone] Reason for Visit * Reason Onset Date Comments Forms Request 02/20/2024 [employer] pap er work Encounter Details Date Type Department Care Team (Late st Contact Info) Description 02/20/2024 Telephone [facility] [place] [address] [place] [facility] [place] [address] Earl Enamorado MD [address] [place] [address] Forms Request ([employer] paper work) Allergies Active Allergy Reactions Criticality Noted Date Comments Adhesive Tape Rash 02/08/2016 Capsicum Edema Other High 01/18/2021 Food (See Comments) Other (Please comment) 02/28/2015 Can not eat any peppers of any kind, or Had issues with swallowing Other reaction(s): IRRITATES THROAT Gluten Meal 05/27/2019 Ibuprofen Nausea/vomiting 05/26/2010 Kiwi Extract 11/02/2014 documented as of this encounter (statuses as of 02/28/2024) Medications Medication Sig Dispensed Refills Start Date [...] directed; E11.9 100 Strip 11 02/14/2018 Active SystematicBytesTOUCH DELICA LANCETS 33G MISC Use as directed four times a day (E11.9) 100 Each 11 02/14/2018 Active Blood Glucose Monitoring Suppl (OneTeamVisi ULTRA 2) w/Device KIT Use up to four times a day (E11.9) 1 Kit 00 02/14/2018 Active propranolol (INDERAL) 10 MG Tablet 03/24/2019 Active FLUoxetine HCl (PROZAC) 40 MG CapsuleIndications:Bi polar 1 disorder, depressed (HCC),Anxiety Take 1 Cap by mouth daily. 30 Cap 11/23/2019 Active methylPHENIDATE (RITALIN) 10 MG TabletIndications:Att ention deficit hyperactivity disorder (ADHD), unspecified ADHD type 1 pill 2x/day 60 Tab 11/23/2019 Active lamoTRIgine (LAMICTAL) 25 MG TabletIndications:Bip olar 1 disorder, depressed (HCC) Take 2 Tabs by mouth 2 times a day. 120 Tab 11/23/2019 Active clonazePAM (KLONOPIN) 0.5 MG Tablet TAKE 1 TABLET BY MOUTH ONCE DAILY NEEDED 01/20/2020 Active Diclofenac Sodium 1 % gelIndications:Trapez ius muscle spasm,Migraine without aura and without status migrainosus, not intractable Apply 4 g topically to affected area 4 times a day. Apply to neck 100 g 04/07/2020 Active Pen Rome 12/18" 31G X 8 MMIndications:Type 2 diabetes mellitus with hemoglobin A1c goal of less than 7.0% (HCC) Use with Victoza daily 100 Each 5 06/28/2020 Active Fluticasone Propionate 50 MCG/ACT Nasal SuspensionIndications :Acute URI,Viral illness,Flu-like symptoms Administer into each nostril 2 Sprays in the morning. 1 Each 09/07/2021 Active buPROPion HCl ER (SR) 100 MG Oral Tablet Extended Release 12 Hour (Wellbutrin SR) 02/20/2022 Acti ve Acetaminophen 325 MG Oral Tablet (Tylenol) Take by mouth 2 Tablets every 6 hours . For the first 72 hours then every 6 hours as needed 30 Tablet 03/29/2022 Active Ibuprofen 600 MG Oral Tablet (Motrin) Take by mouth 1 Tablet every 6 hours . For 72 hours then as needed. 30 Tablet 03/29/2022 Active Ventolin HFA 108 (90 Base) MCG/ACT Inhalation Aerosol SolutionIndications:A cute URI,Viral illness,Flu-like symptoms Inhale 2 Puffs by mouth every 4 hours as needed for Wheezing. 54 g 3 09/11/2022 Active traZODone HCl 50 MG Oral Tablet (Desyrel) take 1/2 to 1 tablet by mouth at bedtime if needed 09/20/2022 Active Benzonatate 100 MG Oral CapsuleIndications:Up per respiratory tract infection, unspecified type,Pharyngitis, unspecified etiology Take 1 Capsule by mouth 3 times a day as needed for Cough (may make you sleepy). 15 Capsule 11/07/2022 Active Ondansetron 4 MG Oral Tablet Disintegrating (Zofran)Indications:M enorrhagia with irregular cycle,PCOS (polycystic ovarian syndrome) Place 1 Tablet on tongue every 8 hours as needed for Nausea. dissolve on tongue. 20 Tablet 03/15/2023 Active Nystatin 982495 UNIT/GM External Powder (Nystop) Apply 1 g topically to affected area in the morning and 1 g before bedtime. 60 g 5 04/05/2023 Active Triamcinolone Acetonide 0.1 % External Cream (Aristocort)Indicatio ns:Flea bite, initial encounter Apply topically to affected area 2 times a day. To affected area. 453 g 5 06/11/2023 Active metFORMIN HCl ER 500 MG Oral Tablet Extended Release 24 Hour (Glucophage XR)Indications:Type 2 diabetes mellitus with hemoglobin A1c goal of less than 7.0% (HCC) TAKE 2 TABLETS BY MOUTH WITH BREAKFAST AND DINNER 360 Tablet 2 08/03/2023 Active Norethindrone 0.35 MG Oral TabletIndications:Enc ounter for initial prescription of contraceptive pills Take 1 Tablet by mouth in the morning. 84 Tablet 3 08/07/2023 Active Dulaglutide 3 MG/0.5ML Subcutaneous Solution Pen-injector (Trulicity)Indication s:Type 2 diabetes mellitus with hemoglobin A1c goal of less than 7.0% (HCC) Inject 3 mg under the skin once a week. 6 mL 3 08/09/2023 Active OneTouch Verio In Vitro Strip (Glucose Blood)Indications:Typ e 2 diabetes mellitus with hemoglobin A1c goal of less than 7.0% (HCC) Dx E11.9 Check twice daily 200 Strip 2 12/09/2023 Active Gabapentin 300 MG Oral Capsule (Neurontin)Indication s:Facial spasm Take 1 Capsule by mouth at bedtime. 30 Capsule 2 12/25/2023 Active tiZANidine HCl 4 MG Oral Tablet (Zanaflex)Indications :Lumbar paraspinal muscle spasm Take 1 Tablet by mouth every 6 hours as needed for Muscle spasms. 24 Tablet 01/14/2024 Active Dulaglutide 1.5 MG/0.5ML Subcutaneous Solution Pen-injector (Trulicity)Indication s:Type 2 diabetes mellitus with hemoglobin A1c goal of less than 7.0% ([facility]) Inject 1.5 mg under the skin once a week. 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 PTSD (post-traumatic stress disorder) ADHD (attention deficit hyperactivity disorder) Fatty liver Overview: non-alcoholic steatohepatitis documented as of this encounter (statuses as of 02/28/2024) Resolved Problems Problem Noted Date Diagnosed Date [...] as of this encounter (statuses as of 02/28/2024) Immunizations Name Administration Dates Next Due COVID-19 mRNA, LNP-s, No Pre serve, 2-Dose Series (Moderna) 05/26/2021,04/28/2021 HEP A - Hepatitis A (Adult > 18 yrs) 02/24/2019, 07/08/2018,02/22/2016 HPV Vaccine, 4-Valent 12/10/2013,07/18/2012,05/05 PPD 09/05/2022,07/02/2022 Pneumococcal Conjugate Vacci ne, 20-valent ([id number]) 02/13/2023 Pneumococcal Polysaccharide PPV23 (Pneumovax) 12/10/2013 Seasonal [...] money to buy more. Often true 04/04/20 Within the past 12 months, t he [...] on file documented as of this encounter Miscellaneous Notes * Telephone Encounter - Chela Noriega LPN - 02/28/2024 12:13 PM EDT Called patient, she is aware and verbalized understand. Form has been faxed to [facility] on 02/28/24. * Telephone Encounter - Reba Mai PA-C - 02/28/2024 12:03 PM EDT Done Reba Mai PA-C * Telephone Encounter - Graciela Mera LPN - 02/20/2024 2:39 PM EDT Forms for [employer] paper work Placed on Reba's desk to review due to Doctor May being out of the office. Please advise documented in this encounter Plan of Treatment Health Maintenance Due Date Last Done Comments DISCUSS TOBACCO CESSATION (REFER TO SMARTSET #9979) 1987 Albumin/Creatinine Ratio 2005 Hepatitis B Vaccine (1 of 3 - 19+ 3-dose series) 2006 *SPIROMETRY ONCE FOR ASTHMA-ADULT 09/14/2022 COVID-19 Vaccine (2022- season) 2023 05/26/2021, 04/28/2021 B-12 02/14/2024 02/13/2023, 04/05, 02/14/2018 Diabetic Foot Exam 04/05/2024 04/05/2023, 0 04/07/2020, 05/01/2019, Additional history exists Influenza Vaccine (FLU shot) (#1) 2024 06/11/2023, 05/12/2021, 04/07/2020, Additional history exists HbA1c 06/26/2024 12/25/2023, 0111/2023, 02/13/2023, Additional history exists Diabetic Eye Exam 08/07/2024 08/07/2023, , 04/14/2018 GFR 12/24/2024 12/25/2023, 02/02, 01/17/2022, Additional history exists Pap Smear 06/11/2026 06/11/2023, 04/0 12/2017, 11/07/2017, Additional history exists Cervical Cancer Screening 06/11/2028 HPV/Co-Test 06/11/2028 06/11/2023 DTaP,Tdap,and Td Vaccines (3 - Td or Tdap) 10/23/2032 10/23/2022, 05/27/2012 HPV (Gardasil) Vaccine Completed , 07/18/2012, 05/15/2012 Pneumococcal Vaccine: Pediatrics (0 to 5 Years) and At-Risk Patients (6 to 64 Years) Completed 02/13/2023, 12/10/2013 Hepatitis C Screening Completed 04/06/2023, 018 MENINGOCOCCAL (MENACTRA/MENVEO) Aged Out No longer eligible based on patient's age to complete this topic documented as of this encounter Medical Devices Not on filedocumented as of this encounter Advance Directives * Full Code [...] Power of Attor ramy? No Care Teams Obstetrics Gynecology Md Relationship Specialty Start Date End Date December, Earl Saba MD [address] [place] [facility] [place] [address] PCP - General Family Medicine 02/16/24 documented as of this encounter
[2024-03-06] MEDS ORDERED: ONDANSETRON INJ 2 MG/ML 2 ML VIAL IV PRN (18:48)
[2024-03-06] MEDS ORDERED: POLYETHYLENE (MIRALAX) 17 GM PACK PO PRN (18:48)
[2024-03-06] MEDS ORDERED: PROPRANOLOL HCL 10 MG TAB PO PRN (18:48)
[2024-03-06] MEDS ORDERED: ACETAMINOPHEN 325 MG TAB PO PRN (18:48)
[2024-03-06] MEDS ORDERED: ALBUTEROL HFA 8 GM INHALER INH PRN (18:48)
[2024-03-06] MEDS ORDERED: GLUCOSE 10 TAB/TUBE PO PRN (18:48)
[2024-03-06] MEDS ORDERED: tiZANidine HCL 4 MG TABLET PO PRN (18:48)
[2024-03-06] MEDS ORDERED: GLUCOSE 40% GEL 15 GM TUBE PO PRN (18:48)
[2024-03-06] MEDS ORDERED: DEXTROSE 50% 50 ML SYRINGE IV PRN (18:48)
[2024-03-06] MEDS ORDERED: CARBOHYDRATES FOR HYPOGLYCEMIA PO PRN (18:48)
[2024-03-06] MEDS ORDERED: GLUCAGON FOR INJ 1 MG VIAL SQ PRN (18:48)
--- NOTE | 2024-03-06 19:19 | Electrocardiogram Report ---
Test Reason : Blood Pressure : / mmHG Vent. Rate : 114 BPM Atrial Rate : 114 BPM P-R Int : 134 ms QRS Dur : 084 ms QT Int : 316 ms P-R-T Axes : 051 045 038 degrees QTc Int : 435 ms Sinus tachycardia Otherwise normal ECG When compared with ECG of 13-MAR-2023 20:58, No significant change Confirmed by Cortez Rebollar ([id number]) on 03/06/2024 7:18:51 PM Referred By: REFERRED SELF Confirmed By:Cortez Rebollar
[2024-03-06] MEDS: PIPERACILLIN/TAZOBACTAM 4.5 GM in DEXTROSE 5% MINI-B 100 ML IV SCH (20:01)
[2024-03-06] MEDS: ENOXAPARIN INJ 40 MG/0.4 ML SYR SQ SCH (20:20)
[2024-03-06] MEDS: traZODone HCL 100 MG TAB PO SCH (20:21)
[2024-03-06] MEDS: GABAPENTIN 300 MG CAP PO SCH (20:22)
[2024-03-06] MEDS: PANTOprazole 40 MG TAB PO SCH (20:22)
[2024-03-06] MEDS: lamoTRIgine 25 MG TAB PO SCH (20:23)
[2024-03-06] MEDS: oxyCODONE HCL IR 5 MG TAB (IMMEDIATE RELEASE) PO PRN (20:23)
[2024-03-06] MEDS: INSULIN ASPART PER UNIT CHARGE SC SCH (20:29)
[2024-03-07] MEDS: PIPERACILLIN/TAZOBACTAM 4.5 GM in DEXTROSE 5% MINI-B 100 ML IV SCH (00:50)
[2024-03-07 06:46] LABS: Basophils # (auto) 0.03 K/uL (0.00-0.20); Basophils % (auto) 0.4 %; Eosinophils # (auto) 0.13 K/uL (0.00-0.50); Eosinophils % (auto) 1.8 %; Hematocrit (blood only) 32.8 % (37.0-47.0); Hemoglobin 10.8 g/dl (12.0-16.0); Immature Granulocytes # (auto) 0.05 K/uL (0.01-0.20); Immature Granulocytes % (auto) 0.7 %; Lymphocytes # (auto) 2.21 K/uL (1.20-3.40); Lymphocytes % (auto) 29.9 %; Mean Corpuscular Hemoglobin 27.6 pg (25.0-34.0); Mean Corpuscular Hgb Conc 32.9 g/dL (32.0-36.0); Mean Corpuscular Volume 83.7 fL (80.0-100.0); Mean Platelet Volume 9.4 fL (9.4-12.4); Monocytes # (auto) 0.85 K/uL (0.11-0.59); Monocytes % (auto) 11.5 %; Neutrophils # (auto) 4.13 K/uL (1.40-6.50); Neutrophils % (auto) 55.7 %; Platelet Count 311 K/uL (130-400); RDW Coefficient of Variation 16.8 % (11.5-14.5); RDW Standard Deviation 51.4 fL (36.4-46.3); Red Blood Count 3.92 M/uL (4.20-5.40)
[2024-03-07 07:07] LABS: BUN Creatinine Ratio 10.2 (10-20); Calcium 8.6 mg/dl (8.6-10.3); Creatinine Clr Calc Pharmacy 116.8 ml/min; Est GFR (African American) 85.4 ml/min; Est GFR (Non-African American) 73.7 ml/min; Magnesium 1.9 mg/dl (1.7-2.4); Potassium 4.1 mmol/L (3.5-5.1)
[2024-03-07] MEDS: buPROPion SR 100 MG TABCR PO SCH (08:34)
[2024-03-07] MEDS: FLUoxetine HCL 20 MG CAP PO SCH (08:35)
[2024-03-07 09:32] LABS: Appearance Urine Cloudy (Clear); Bacteria Urine Automated 2+ (None Seen); Bilirubin Urine Negative (Negative); Blood Urine Negative (Negative); Cast Urine Automated 0-2 /lpf (0-2); Color Urine Yellow; Epithelial Cell Urine Auto >20 /hpf (0-2); Glucose Urine UA Negative (Negative); Ketones Urine Trace (Negative); Leukocyte Esterase Urine 1+ (Negative); Nitrite Urine Negative (Negative); Protein Urine Negative (Negative); RBC Urine Automated 0-2 /hpf (0-2); Urobilinogen Urine Negative (Negative); pH Urine 5.5 (4.5-7.5)
--- NOTE | 2024-03-07 10:16 | Hospitalist Progress Note ---
Date of Service March 07, 2024 Assessment & Plan (1) Cellulitis of left leg: Plan: 39-year-old female with PMH DM II, GERD, WALT, ADHD, anxiety, bipolar disorder presented to ER with c/o LLE pain and erythema x 3 days with fevers. In ER afebrile, Was [id number], R: 20, BP 121/87, 97% on room air. WBC: 11 EKG sinus tachycardia rate 114 In ER given 1L NSS, Rocephin 2 g IV, morphine, Zofran Lactate: 2.6-->1.7 Blood cultures pending Venous Doppler LLE: No DVT Considering diabetes and skin wounds, will continue broad spectrum antibiotics with Zosyn, daptomycin RN to denisha cellulitis in LLE Pain control. Monitor (2) Elevated d-dimer: Plan: D-dimer: 780 LLE venous Doppler: No DVT CTA chest: No PE (3) Hypomagnesemia: Plan: On admission, Magnesium: 1.4 Repleted Mag is 1.9 today (4) Diabetes mellitus, type 2: Plan: A1c: 5.4 on 12/25/2023 Hold home metformin, Trulicity NovoLog sliding scale per protocol (5) Sleep apnea: Plan: CPAP at bedtime (6) Anxiety: (7) Depression: (8) Bipolar 1 disorder: Plan: Home Ritalin on hold while hospitalized Continue home bupropion, lamotrigine, fluoxetine. Continue home clonazepam, propranolol as needed anxiety Counseled regarding compulsive skin picking behavior. May need behavioral therapies for this (9) Cannabis vapor product use: (10) Vapes nicotine containing substance: Plan: Denies nicotine patch Counseled regarding this DVT Prophylaxis Loveyoko BARRAGAN I spent a total of 50 minutes coordinating, documenting and providing care for this patient excluding time spent in performance of separately billed services Admission and Anticipated Discharge Date Admission Date: March 06, 2024 Subjective Patient seen and examined Reports left leg pain and swelling is similar to yesterday Reports redness is improving Patient reported she had fever/chills at home. Resolved now Reports she compulsively picks her skin and sometimes does not realize it Denied other complains on ROS Physical Exam Constitutional: + well hydrated and + obese; no acute di stress Eyes: PERRL, conjunctivae normal, anicteric sclerae ENMT: external ear and nose normal, oropharynx normal Respiratory: normal respiratory effort, lungs clear to auscultation Cardiovascular: Rate/Rhythm: regular rate and regular rhythm Gastrointestinal (Abdomen): normal bowel sounds, soft, nontender, no hepatosplenomegaly Musculoskeletal: Left leg edema, tenderness, erythema and differential warmth Skin: Multiple scabs, small wounds on extremities, abd in different stages of healing Neurologic: PERRL, EOMI, accommodation nl, no face palsy, no dysarthria Psychiatric: A+Ox3, euthymic affect Results & Data Results & Data Vital Signs (Past 12 Hours) Vital Signs Temp Pulse Pulse Resp BP BP Pulse Ox 03/07/24 07:56 36.3 C L 77 16 112/72 97 03/07/24 02:33 36.5 C 65 18 111/71 98 03/07/24 00:30 16 98 03/06/24 22:43 36.5 C 72 18 126/75 96 O2 Del Method FiO2 03/07/24 07:56 Room Air 03/07/24 02:33 Room Air 03/07/24 00:30 21 03/06/24 22:43 Room Air Laboratory Results Abnormal lab results 03/06/24 03/07/24 03/07/24 Range/Units 20:25 05:56 07:19 RBC 3.92 L (4.20-5.40) M/uL Hgb 10.8 L (12.0-16.0) g/dl Hct 32.8 L (37.0-47.0) % RDW Std Deviation 51.4 H (36.4-46.3) fL RDW Coeff of Kita 16.8 H (11.5-14.5) % [place] # (Auto) 0.85 H (0.11-0.59) K/uL POC Glucose 123 H 100 H (70-99) mg/dl Urine Appearance (Clear) Urine Ketones (Negative) Ur Leukocyte Esterase (Negative) Urine WBC (Auto) (0-5) /hpf U Epithel Cells (Auto) (0-2) /hpf Urine Bacteria (Auto) (None Seen) 03/07/24 Range/Units Unknown RBC (4.20-5.40) M/uL Hgb (12.0-16.0) g/dl Hct (37.0-47.0) % RDW Std Deviation (36.4-46.3) fL RDW Coeff of Kita (11.5-14.5) % [place] # (Auto) (0.11-0.59) K/uL POC Glucose (70-99) mg/dl Urine Appearance Cloudy A (Clear) Urine Ketones Trace H (Negative) Ur Leukocyte Esterase 1+ H (Negative) Urine WBC (Auto) 6-10 H (0-5) /hpf U Epithel Cells (Auto) >20 H (0-2) /hpf Urine Bacteria (Auto) 2+ H (None Seen) (4) Diabetes mellitus, type 2 Diabetes mellitus complication status: without complication Diabetes mellitus mcc insulin use: unspecified mcc insulin use status Qualified Cod e(s): E11.9 - Type 2 diabetes mellitus without complications
[2024-03-07] MEDS: DAPTOmycin 375 MG in SYRINGE 0 ML IV SCH (17:19)
[2024-03-07] MEDS: HYDROmorphone INJ 0.5 MG/0.5 ML SYR IV STA (19:24)
[2024-03-07] MEDS: clonazePAM 0.5 MG TAB PO PRN (20:55)
[2024-03-08 06:42] LABS: Hematocrit (blood only) 35.6 % (37.0-47.0); Hemoglobin 11.6 g/dl (12.0-16.0); Mean Corpuscular Hemoglobin 27.8 pg (25.0-34.0); Mean Corpuscular Hgb Conc 32.6 g/dL (32.0-36.0); Mean Corpuscular Volume 85.4 fL (80.0-100.0); Mean Platelet Volume 9.4 fL (9.4-12.4); Platelet Count 318 K/uL (130-400); RDW Coefficient of Variation 16.4 % (11.5-14.5); RDW Standard Deviation 50.9 fL (36.4-46.3); Red Blood Count 4.17 M/uL (4.20-5.40); White Blood Count 6.15 K/ul (4.8-10.8)
[2024-03-08 07:06] LABS: BUN Creatinine Ratio 10.6 (10-20); Calcium 8.9 mg/dl (8.6-10.3); Creatinine Clr Calc Pharmacy 121.3 ml/min; Est GFR (African American) 89.8 ml/min; Est GFR (Non-African American) 77.5 ml/min; Phosphorus 4.4 mg/dl (2.5-4.9); Potassium 4.2 mmol/L (3.5-5.1)
--- NOTE | 2024-03-08 11:13 | Hospitalist Progress Note ---
Date of Service March 08, 2024 Assessment & Plan (1) Cellulitis of left leg: Plan: 39-year-old female with PMH DM II, GERD, WALT, ADHD, anxiety, bipolar disorder presented to ER with c/o LLE pain and erythema x 3 days with fevers. In ER afebrile, Was [id number], R: 20, BP 121/87, 97% on room air. WBC: 11 EKG sinus tachycardia rate 114 In ER given 1L NSS, Rocephin 2 g IV, morphine, Zofran Lactate: 2.6-->1.7 Blood cultures pending Venous Doppler LLE: No DVT Wound culture growing staph. Follow up result Continue daptomycin. Deescalate zosyn to ceftriaxone Pain control. Monitor (2) Elevated d-dimer: Plan: D-dimer: 780 LLE venous Doppler: No DVT CTA chest: No PE (3) Hypomagnesemia: Plan: On admission, Magnesium: 1.4 Repleted Mag normalized (4) Diabetes mellitus, type 2: Plan: A1c: 5.4 on 12/25/2023 Hold home metformin, Trulicity NovoLog sliding scale per protocol (5) Sleep apnea: Plan: CPAP at bedtime (6) Anxiety: (7) Depression: (8) Bipolar 1 disorder: Plan: Home Ritalin on hold while hospitalized Continue home bupropion, lamotrigine, fluoxetine. Continue home clonazepam, propranolol as needed anxiety Counseled regarding compulsive skin picking behavior. May need behavioral therapies for this (9) Cannabis vapor product use: (10) Vapes nicotine containing substance: Plan: Counseled regarding this DVT Prophylaxis Kunal BARRAGAN I spent a total of 40 minutes coordinating, documenting and providing care for this patient excluding time spent in performance of separately billed services Admission and Anticipated Discharge Date Admission Date: March 06, 2024 Subjective Patient seen and examined Reports left leg pain still significant Left leg swelling is mildly improving Redness continues to improve No fever/chills Denied other complains on ROS Physical Exam Constitutional: + well hydrated and + obese; no acute di stress Eyes: PERRL, conjunctivae normal, anicteric sclerae ENMT: external ear and nose normal, oropharynx normal Respiratory: normal respiratory effort, lungs clear to auscultation Cardiovascular: Rate/Rhythm: regular rate and regular rhythm Gastrointestinal (Abdomen): normal bowel sounds, soft, nontender, no hepatosplenomegaly Musculoskeletal: Left leg edema, tenderness, erythema and differential warmth mildly improved Skin: Multiple scabs, small wounds on extremities, abd in different stages of healing Neurologic: PERRL, EOMI, accommodation nl, no face palsy, no dysarthria Psychiatric: A+Ox3, euthymic affect Results & Data Results & Data Vital Signs (Past 12 Hours) Vital Signs Temp Pulse Pulse Resp BP Pulse Ox O2 Del Method 03/08/24 11:08 36.5 C 78 17 139/84 94 Room Air 03/08/24 07:25 75 03/08/24 07:12 36.6 C 69 16 121/74 97 Room Air 03/08/24 02:35 36.6 C 73 18 99/65 L 95 Nasal Cannula O2 Flow Rate 03/08/24 11:08 03/08/24 07:25 03/08/24 07:12 03/08/24 02:35 1 Laboratory Results Abnormal lab results 03/07/24 03/08/24 Range/Units 20:22 05:28 RBC 4.17 L (4.20-5.40) M/uL Hgb 11.6 L (12.0-16.0) g/dl Hct 35.6 L (37.0-47.0) % RDW Std Deviation 50.9 H (36.4-46.3) fL RDW Coeff of Kita 16.4 H (11.5-14.5) % POC Glucose 103 H (70-99) mg/dl (4) Diabetes mellitus, type 2 Diabetes mellitus complication status: without complication Diabetes mellitus mcc insulin use: unspecified mcc insulin use status Qualified Code(s): E11.9 - Type 2 diabetes mellitus without complications
[2024-03-08] MEDS ORDERED: cefTRIAXone SODIUM 1,000 MG/50 ML BAG IV SCH (12:15)
[2024-03-08] MEDS: cefTRIAXone SODIUM 2,000 MG/50 ML BAG IV SCH (12:28)
[2024-03-08] MEDS: ACETAMINOPHEN 325 MG TAB PO SCH (12:28)
[2024-03-08] MEDS: HYDROmorphone INJ 0.5 MG/0.5 ML SYR IV STA (12:29)
[2024-03-09 06:46] LABS: Hematocrit (blood only) 33.8 % (37.0-47.0); Hemoglobin 10.8 g/dl (12.0-16.0); Mean Corpuscular Hemoglobin 27.2 pg (25.0-34.0); Mean Corpuscular Volume 85.1 fL (80.0-100.0); Mean Platelet Volume 9.3 fL (9.4-12.4); Platelet Count 324 K/uL (130-400); RDW Coefficient of Variation 16.1 % (11.5-14.5); RDW Standard Deviation 50.4 fL (36.4-46.3); Red Blood Count 3.97 M/uL (4.20-5.40); White Blood Count 6.22 K/ul (4.8-10.8)
[2024-03-09 07:03] LABS: BUN Creatinine Ratio 11.7 (10-20); Calcium 8.7 mg/dl (8.6-10.3); Creatinine Clr Calc Pharmacy 148.2 ml/min; Est GFR (African American) 114.3 ml/min; Est GFR (Non-African American) 98.6 ml/min
--- NOTE | 2024-03-09 13:37 | Discharge Summary ---
Date of Service March 09, 2024 Admission HPI Per Admitting Provider Patient is 39-year-old female with PMH DM II, GERD, WALT, ADHD, anxiety, bipolar disorder presented to ER with c/o LLE pain and erythema x 3 days. Patient states 3 days ago had tactile fever, chills and nausea and vomiting. No further nausea. Patient states then noticed some erythema to left lower leg. Erythema and edema worsened and states area is very tender. Outpatient chart reviewed and had telemedicine visit 03/05/2024 with PCPs office for reported erythema of left leg with tenderness and warmth to palpation and was prescribed doxycycline. Patient states took two doses doxycycline. Today pain worse and painful to ambulate so came to ER for further evaluation. Tried Tylenol and Ibuprofen at home without much relief. Admits to picking at skin lesions to left leg and thinks that was underlying cause. Denies other known injury to leg. Reports history right lower extremity cellulitis in past treated outpatient with oral antibiotics. Patient states history of chronic skin lesions to upper and lower extremities chest and abdomen. She states she will sometimes have pimple-like regions or areas of pruritus and she reports that she picks at these areas. Patient denies any known history of MRSA but doesn't think was ever evaluated. Denies CP, SOB, cough. Reports chronic intermittent lower abdominal pain and denies any current abdominal pain. Denies hematemesis, diarrhea, constipation, HIGH, dizziness, o rthopnea, palpitations, rhinorrhea, urinary symptoms. Admission Exam Per Admitting Provider General: no distress, obese Head: normocephalic, atraumatic Eyes: conjunctiva non-injected, anicteric ENT: normal inspection external ears, nose, mucous membranes moist Neck: supple, trachea midline Lungs: clear, no respiratory distress, no wheezing/rhonchi/rales CV: RRR, no murmur Abd: normal BS, soft, non-tender Ext: no cyanosis. LLE: +edema, erythema and warmth extending from proximal foot to mid dukes/calf with moderate tenderness to palpation, +multiple excoriated erythematous lesions to extremity, distal pulses palpable. RLE without erythema, edema or tenderness to palpation Neuro: A&O x 3, no focal deficits noted, normal affect Skin: warm, dry, +diffuse scattered round scabbed erythematous excoriated lesions to bilateral upper and lower extremities, chest, abdomen. +multiple round scars noted to bilateral upper and lower extremities Principal Diagnosis Left leg cellulitis Discharge Exam Constitutional + well hydrated and + obese; no acute distress Eyes PERRL, conjunctivae normal, anicteric sclerae ENMT external ear and nose normal, oropharynx normal Respiratory normal respiratory effort, lungs clear to auscultation Cardiovascular Rate/Rhythm: regular rate and regular rhythm Gastrointestinal (Abdomen) normal bowel sounds, soft, nontender, no hepatosplenomegaly Musculoskeletal Left leg edema, tenderness, erythema much improved Skin Multiple scabs, small wounds on extremities, abd in different stages of healing Neurologic PERRL, EOMI, accommodation nl, no face palsy, no dysarthria Psychiatric A+Ox3, euthymic affect Discharge Data Allergies Allergy/AdvReac Type Severity Reaction Status Date / Time adhesive Allergy Intermediate Blistering Verified 03/06/24 13:40 kiwi Allergy Intermediate Tongue Verified 03/06/24 13:40 swelling gluten Allergy Mild Rash, Verified 03/06/24 13:40 nausea (with large amounts) macias pepper Allergy Verified 03/09/24 08:57 ibuprofen AdvReac Severe GI bleed Verified 03/06/24 13:40 sumatriptan AdvReac Intermediate Increases Verified 03/06/24 13:40 neck pain and stiffness Macias Pepper Allergy Intermediate Throat Uncoded 03/06/24 13:40 irritation Consultations 03/06/24 15:19 ED Decision to Admit Stat Ordered Studies 03/06/24 13:46 US venous doppler LE LT Stat 03/06/24 16:33 CT angio chest PE protocol Stat Hospital Course (1) Cellulitis of left le-year-old female with PMH DM II, GERD, WALT, ADHD, anxiety, bipolar disorder presented to ER with c/o LLE pain and erythema x 3 days with fevers. In ER afebrile, Was [id number], R: 20, BP 121/87, 97% on room air. WBC: 11 EKG sinus tachycardia rate 114 In ER given 1L NSS, Rocephin 2 g IV, morphine, Zofran Lactate: 2.6-->1.7 Venous Doppler LLE: No DVT Blood cultures negative Was initially on IV antibiotics Wound culture grew MSSA Antibiotics deescalated to po keflex to complete treatment Discharged on 9 tabs of oxycodone 5mg tid prn for severe pain not controlled on tylenol Script given to CM for walker as patient has significant pain with walking on left leg without walker PCP to follow up (2) Elevated d-dimer: D-dimer: 780 LLE venous Doppler: No DVT CTA chest: No PE (3) Hypomagnesemia: On admission, Magnesium: 1.4 Repleted Mag normalized (4) Diabetes mellitus, type 2: A1c: 5.4 on 12/25/2023 Continue home antidiabetics (5) Sleep apnea: CPAP at bedtime (6) Anxiety: (7) Depression: (8) Bipolar 1 disorder: Continue home bupropion, lamotrigine, fluoxetine. Continue home clonazepam, propranolol as needed anxiety Counseled regarding compulsive skin picking behavior. May need behavioral therapies for this (9) Cannabis vapor product use: (10) Vapes nicotine containing substance: Counseled regarding this Total Time Total Time Spent Total Time Spent (In Minutes): 35 Total Time Includes: Examination of the Patient, Discharge Planning and Medication Reconciliation Discharge Plan Discharge Items Patient Disposition: Home - Self-Care Reason For Visit: LLE CELLULITIS Discharge Diagnosis: Left leg cellulitis Activity: Resume your previous activity Non-emergency contact: Primary Care Provider Call non-emergency contact if: you have any medication questions and your symptoms worsen Follow-up/Referrals: Sonido Jacobson MD [Primary Care Provider] - Earl Enamorado MD [Outside Practitioners] - (03/16/24;9AM) Diet: Carb Consistent or DM2 and Heart Healthy Addtl Attending Provider Instructions: Ms Shar Zaragoza were admitted to the hospital and managed for Left leg cellulitis. You are being discharged on 4 more days of antibiotics to complete treatment Please ensure follow up with your Primary Doctor It was a pleasure taking care of you. Pending Studies at Discharge: No Stand-Alone Forms: My [employer], Smoking Cessation Medications and DC Order Prescriptions: New oxycodone 5 mg Tablet 5 mg PO TID PRN (Reason: Severe pain) Qty: 9 0RF cephalexin 500 mg tablet 500 mg PO Q6H 7 Days Qty: 28 0RF Continued methylphenidate HCl [Ritalin] 10 mg Tablet 10 mg PO BID Rx Instructions: TAKE THIS MEDICATION AT 0900 and 1400 HOURS albuterol sulfate [Ventolin HFA] 90 mcg/actuation Hfa Aerosol Inhaler 2 puff INHALATION QID PRN (Reason: Wheezing) omeprazole 20 mg Tablet,Disintegrat, Delay Rel 20 mg PO DAILY PRN (Reason: Heartburn) metformin 500 mg tablet extended release 24 hr 1,000 mg PO BID propranolol 10 mg Tablet 10 mg PO BID PRN (Reason: Anxiety) Hair,Skin and Nails Tablet 1 tab PO QAM lamotrigine 25 mg tablet 50 mg PO BID Medical Marijuana 0 mg inhalation DIRECTED PRN (Reason: Anxiety) fluoxetine [Prozac] 40 mg Capsule 80 mg PO QAM clonazepam [Klonopin] 0.5 mg tablet 0.5 mg PO DAILY PRN (Reason: Anxiety) ondansetron 4 mg tablet,disintegrating 4 mg PO Q6 PRN (Reason: nausea and vomiting) Qty: 14 0RF diphenhydramine HCl [Benadryl] 25 mg Capsule 25 mg PO HS PRN (Reason: Insomnia) tizanidine 4 mg tablet 4 mg PO Q6H PRN (Reason: Other) ibuprofen 600 mg tablet 600 mg PO Q6H PRN (Reason: Other) loratadine [Claritin] 10 mg Tablet 10 mg PO DAILY PRN (Reason: ALLERGY RELIEF) biotin 1 mg Capsule 1 mg PO DAILY acetaminophen [Tylenol Extra Strength] 500 mg Tablet 500 mg PO Q6H PRN (Reason: Pain) trazodone 300 mg tablet 300 mg PO HS gabapentin 300 mg capsule 300 mg PO HS bupropion HCl 200 mg tablet sustained-release 12 hr 200 mg PO DAILY Trulicity 1.5 mg/0.5 mL pen injector 1.5 mg SUBCUT WK Discharge Orders: Discharge Order (Routine); Ordered 03/09/24 Ordered By: Nara Roy Admission Data Admit Date/Time: 03/06/24 16:13 Attending Provider: Nara Roy I. Admit Provider: Geo Apple Primary Care Provider: Sonido Jacobson Other Providers: Geo Apple; [facility],Oxygen Other Interventions: Discharge Summary Assessment (RN) Last Done: 03/09/24 13:49
== END 2024-03-09 14:45 | disposition home or self-care (01) | DRG 603 ==
LOC: ED 12:44 → 2S 16:13 → SUATTDRO 16:13 → 2S 18:26